=== PATIENT | female | born 1940 | race Caucasian/White ===

== ENCOUNTER 2018-12-02 16:23 | Inpatient (IN) | payer MEDICARE, OTHER ==
[2018-12-02] MEDS ORDERED: IPRATROPIUM-ALBUTEROL 3 ML NEB INHALATION STA (16:30)
--- NOTE | 2018-12-02 17:09 | ED ---
General Adult HPI - General Chief complaint: Weakness Stated complaint: poss STEMI Source: patient, EMS Mode of arrival: EMS Limitations: no limitations - History of Present Illness Initial comments: Patient presents to the ED by ambulance for evaluation. Patient states that she was recently discharged from an outside hospital after being admitted for pneumonia. Patient states that she has had diarrhea for the past 3 days, and she states that she has felt generally weak. Patient states that she lives alone. Patient states that her granddaughter called for an ambulance for her today. Patient admits that her diarrhea has been dark in color, but she states that she takes iron pills daily. She also admits to having a continued cough and mild dyspnea. Patient denies having any pain, trauma or injury, fever or chills, headache, focal neuro deficit, chest pain, neck/arm/jaw pain, hemoptysis, palpitations, dizziness, syncope, abdominal pain, nausea or vomiting, red-colored stool, dysuria, hematuria, urinary symptoms, or any other symptoms or complaints. - Related Data Home Medications Medication Instructions Recorded Confirmed ALPRAZolam [Xanax] 0.5 mg PO BID PRN 12/02/18 12/02/18 Albuterol Nebulized [Ventolin 2.5 mg INHALATION RT-Q8H 12/02/18 12/02/18 Nebulized] Aspirin EC [Ecotrin Low Dose] 81 mg PO DAILY 12/02/18 12/02/18 Atorvastatin [Lipitor] 40 mg PO DAILY 12/02/18 12/02/18 Clopidogrel Bisulfate [Plavix] 75 mg PO DAILY 12/02/18 12/02/18 Escitalopram Oxalate [Lexapro] 10 mg PO DAILY 12/02/18 12/02/18 Ferrous Sulfate [Feosol] 325 mg PO DAILY 12/02/18 12/02/18 Fluticasone/Salmeterol [Advair 1 puff INHALATION RT-BID 12/02/18 12/02/18 250-50 Diskus] Furosemide [Lasix] 40 mg PO BID 12/02/18 12/02/18 Gabapentin 600 mg PO TID 12/02/18 12/02/18 Ipratropium-Albuterol Nebulize 3 ml INHALATION RT-QID 12/02/18 12/02/18 [Duoneb 0.5 mg-3 mg/3 ml Soln] Lisinopril [Zestril] 2.5 mg PO DAILY 12/02/18 12/02/18 Metoprolol Tartrate [Lopressor] 12.5 mg PO BID 12/02/18 12/02/18 Nitroglycerin Sl Tabs [Nitrostat] 0.4 mg PO Q5M PRN 12/02/18 12/02/18 Omeprazole [PriLOSEC] 20 mg PO DAILY 12/02/18 12/02/18 Potassium Chloride ER [K-Dur 20] 20 meq PO DAILY 12/02/18 12/02/18 predniSONE 40 mg PO DAILY 12/02/18 12/02/18 Allergies Allergy/AdvReac Type Severity Reaction Status Date / Time bacitracin Allergy Rash/Hives Verified 12/02/18 18:46 [From Neosporin ([id number])] diphenhydramine Allergy Swelling Verified 12/02/18 18:46 [From Benadryl] iodine Allergy Swelling Verified 12/02/18 18:46 moxifloxacin [From Avelox] Allergy Anaphylaxis Verified 12/02/18 18:46 neomycin Allergy Rash/Hives Verified 12/02/18 18:46 [From Neosporin ([id number])] polymyxin B Allergy Rash/Hives Verified 12/02/18 18:46 [From Neosporin ([id number])] morphine AdvReac Hallucinati Verified 12/02/18 18:46 ons Pbdgdvr-Tpb-Qxu Reductase AdvReac NOT SURE, Verified 12/02/18 18:46 Inhibitor STILL TAKES LIPITOR Review of Systems ROS Statement: Those systems with pertinent positive or pertinent negative responses have been documented in the HPI. ROS Other: All systems not noted in ROS Statement are negative. Past Medical History Past Medical History: COPD Additional Past Medical History / Comment(s): pvd History of Any Multi-Drug Resistant Organisms: None Reported Past Surgical History: Breast Surgery, Hysterectomy Additional Past Surgical History / Comment(s): double amputation Past Psychological History: Anxiety Smoking Status: Current every day smoker Past Alcohol Use History: None Reported Past Drug Use History: None Reported General Exam Limitations: no limitations General appearance: alert, in no apparent distress Head exam: Present: atraumatic, normocephalic Eye exam: Present: normal appearance, EOMI ENT exam: Present: mucous membranes moist Neck exam: Absent: tenderness, meningismus Respiratory exam: Present: wheezes. Absent: respiratory distress, rales, rhon chi, stridor Cardiovascular Exam: Present: regular rate, normal rhythm, normal heart sounds, other (Normal radial pulses bilaterally) GI/Abdominal exam: Present: soft, other (Large ventral hernia is present). Absent: distended, tenderness, guarding Rectal exam: Present: normal rectal tone, other (Dark-colored stool; ED RN was present during rectal examination). Absent: tenderness Extremities exam: Present: other (Patient is status post bilateral AKA's). Absent: tenderness Neurological exam: Present: alert, oriented X3. Absent: motor sensory deficit Psychiatric exam: Present: normal affect, normal mood Skin exam: Present: warm, dry, intact, normal color Course Vital Signs 12/02/18 12/02/18 12/02/18 16:46 17:03 17:10 Temperature 98 F Pulse Rate 99 111 H 109 H Respiratory 18 18 Rate Blood Pressure 90/67 102/82 O2 Sat by Pulse 91 L 93 L Oximetry 12/02/18 12/02/18 12/02/18 17:17 18:22 19:00 Temperature Pulse Rate 106 H 103 H 99 Respiratory 18 18 Rate Blood Pressure 80/58 102/82 O2 Sat by Pulse 94 L 94 L Oximetry - Reevaluation(s) Reevaluation #1: 12/02/18 18:44 Case, H&P, test results and ED management thus far were discussed with Dr. Day who accepts hospital floor admission. He recommends placing orders for cardiology and pulmonology consultations. He has no further recommendations at this time. 12/02/18 19:18 Patient denies development of any new symptoms while in the ED. Patient had a transient low blood pressure reading while in the ED, but her blood pressure has now improved. Patient is aware of her test results, and she agrees with [facility] admission at this time. EKG Findings - EKG Comments: EKG Findings:: Sinus tachycardia, ventricular rate of 115 bpm, normal MD inte rval, left bundle branch block, leftward axis, normal QT interval, no old EKG is available for comparison Medical Decision Making - Medical Decision Making Given the patient's reported cough/dyspnea, leukocytosis and chest x-ray findings, I suspect that the patient likely has pneumonia. Will treat the patient for hospital-acquired pneumonia given her recent hospitalization. Patient was given IV cefepime, IV azithromycin and IV vancomycin in the ED. I also suspect CHF given the patient's elevated BNP level. No diuretic was given secondary to the pt's boderline low blood pressure. Patient's troponin is slightly elevated, but she denies having any chest pain. Patient's EKG shows a left bundle branch block, and there is no EKG available for comparison at this time. Patient was given aspirin in the ED. Dr. Day has accepted hospital admission. Cardiology and pulmonology consultations have been ordered. - Lab Data Result diagrams: 12/02/18 17:00 12/02/18 17:00 Lab Results 12/02/18 12/02/18 12/02/18 Range/Units 17:00 17:00 17:00 WBC 15.7 H (3.8-10.6) k/uL RBC 4.26 (3.80-5.40) m/uL Hgb 12.6 (11.4-16.0) gm/dL Hct 42.0 (34.0-46.0) % MCV 98.5 (80.0-100.0) fL MCH 29.6 (25.0-35.0) pg MCHC 30.1 L (31.0-37.0) g/dL RDW 14.3 (11.5-15.5) % Plt Count 207 (150-450) k/uL Neutrophils % 94 % Lymphocytes % 2 % Monocytes % 2 % Eosinophils % 1 % Basophils % 0 % Neutrophils # 14.8 H (1.3-7.7) k/uL Lymphocytes # 0.3 L (1.0-4.8) k/uL Monocytes # 0.4 (0-1.0) k/uL Eosinophils # 0.1 (0-0.7) k/uL Basophils # 0.1 (0-0.2) k/uL PT (9.0-12.0) sec INR (<1.2) APTT (22.0-30.0) sec Sodium 138 (137-145) mmol/L Potassium 4.1 (3.5-5.1) mmol/L Chloride 99 (98-107) mmol/L Carbon Dioxide 27 (22-30) mmol/L Anion Gap 12 mmol/L BUN 28 H (7-17) mg/dL Creatinine 0.57 (0.52-1.04) mg/dL Est GFR (CKD-EPI)AfAm >90 (>60 ml/min/1.73 sqM) Est GFR (CKD-EPI)NonAf 89 (>60 ml/min/1.73 sqM) Glucose 110 H (74-99) mg/dL Plasma Lactic Acid Fermin (0.7-2.0) mmol/L Calcium 9.0 (8.4-10.2) mg/dL Magnesium 2.0 (1.6-2.3) mg/dL Total Bilirubin 0.8 (0.2-1.3) mg/dL AST 62 H (14-36) U/L ALT 112 H (9-52) U/L Alkaline Phosphatase 155 H (38-126) U/L Troponin I (0.000-0.034) ng/mL NT-Pro-B Natriuret Pep pg/mL Total Protein 6.2 L (6.3-8.2) g/dL Albumin 3.4 L (3.5-5.0) g/dL Lipase 25 (23-300) U/L Stool Occult Blood (Negative) Blood Type B Positive Blood Type Recheck B Pos Bld Type Recheck Status No Antibody Screen NEGATIVE Spec Expiration Date 12/05/2018229912/02/18 12/02/18 12/02/18 Range/Units 17:00 17:00 17:00 WBC (3.8-10.6) k/uL RBC (3.80-5.40) m/uL Hgb (11.4-16.0) gm/dL Hct (34.0-46.0) % MCV (80.0-100.0) fL MCH (25.0-35.0) pg MCHC (31.0-37.0) g/dL RDW (11.5-15.5) % Plt Count (150-450) k/uL Neutrophils % % Lymphocytes % % Monocytes % % Eosinophils % % Basophils % % Neutrophils # (1.3-7.7) k/uL Lymphocytes # (1.0-4.8) k/uL Monocytes # (0-1.0) k/uL Eosinophils # (0-0.7) k/uL Basophils # (0-0.2) k/uL PT 10.3 (9.0-12.0) sec INR 1.0 (<1.2) APTT 26.8 (22.0-30.0) sec Sodium (137-145) mmol/L Potassium (3.5-5.1) mmol/L Chloride (98-107) mmol/L Carbon Dioxide (22-30) mmol/L Anion Gap mmol/L BUN (7-17) mg/dL Creatinine (0.52-1.04) mg/dL Est GFR (CKD-EPI)AfAm (>60 ml/min/1.73 sqM) Est GFR (CKD-EPI)NonAf (>60 ml/min/1.73 sqM) Glucose (74-99) mg/dL Plasma Lactic Acid Fermin (0.7-2.0) mmol/L Calcium (8.4-10.2) mg/dL Magnesium (1.6-2.3) mg/dL Total Bilirubin (0.2-1.3) mg/dL AST (14-36) U/L ALT (9-52) U/L Alkaline Phosphatase (38-126) U/L Troponin I 0.329 H* (0.000-0.034) ng/mL NT-Pro-B Natriuret Pep 28170 pg/mL Total Protein (6.3-8.2) g/dL Albumin (3.5-5.0) g/dL Lipase (23-300) U/L Stool Occult Blood (Negative) Blood Type Blood Type Recheck Bld Type Recheck Status Antibody Screen Spec Expiration Date 12/02/18 12/02/18 Range/Units 17:00 17:00 WBC (3.8-10.6) k/uL RBC (3.80-5.40) m/uL Hgb (11.4-16.0) gm/dL Hct (34.0-46.0) % MCV (80.0-100.0) fL MCH (25.0-35.0) pg MCHC (31.0-37.0) g/dL RDW (11.5-15.5) % Plt Count (150-450) k/uL Neutrophils % % Lymphocytes % % Monocytes % % Eosinophils % % Basophils % % Neutrophils # (1.3-7.7) k/uL Lymphocytes # (1.0-4.8) k/uL Monocytes # (0-1.0) k/uL Eosinophils # (0-0.7) k/uL Basophils # (0-0.2) k/uL PT (9.0-12.0) sec INR (<1.2) APTT (22.0-30.0) sec Sodium (137-145) mmol/L Potassium (3.5-5.1) mmol/L Chloride (98-107) mmol/L Carbon Dioxide (22-30) mmol/L Anion Gap mmol/L BUN (7-17) mg/dL Creatinine (0.52-1.04) mg/dL Est GFR (CKD-EPI)AfAm (>60 ml/min/1.73 sqM) Est GFR (CKD-EPI)NonAf (>60 ml/min/1.73 sqM) Glucose (74-99) mg/dL Plasma Lactic Acid Fermin 1.8 (0.7-2.0) mmol/L Calcium (8.4-10.2) mg/dL Magnesium (1.6-2.3) mg/dL Total Bilirubin (0.2-1.3) mg/dL AST (14-36) U/L ALT (9-52) U/L Alkaline Phosphatase (38-126) U/L Troponin I (0.000-0.034) ng/mL NT-Pro-B Natriuret Pep pg/mL Total Protein (6.3-8.2) g/dL Albumin (3.5-5.0) g/dL Lipase (23-300) U/L Stool Occult Blood Negative (Negative) Blood Type Blood Type Recheck Bld Type Recheck Status Antibody Screen Spec Expiration Date - Radiology Data Radiology results: image reviewed (Chest x-ray shows bilateral interstitial (right greater than left) pulmonary infiltrates) Disposition Clinical Impression: Generalized weakness, Diarrhea, COPD (chronic obstructive pulmonary disease), Elevated troponin, CHF (congestive heart failure) Narrative: Suspected hospital-acquired pneumonia Disposition: ADMITTED IP TO THIS HOSP Condition: Stable Is patient prescribed a controlled substance at d/c from ED?: No Time of Disposition: 18:44 Decision Date: 12/02/18 Decision Time: 18:19
[2018-12-02 17:22] LABS: Basophils # (A) 0.1 k/uL (0-0.2); Basophils % (A) 0 %; Eosinophils # (A) 0.1 k/uL (0-0.7); Eosinophils % (A) 1 %; HGB 12.6 gm/dL (11.4-16.0); Lymphocytes # (A) 0.3 k/uL (1.0-4.8); Lymphocytes % (A) 2 %; MCH 29.6 pg (25.0-35.0); MCHC 30.1 g/dL (31.0-37.0); MCV 98.5 fL (80.0-100.0); Mean Platelet Volume 6.7; Monocytes # (A) 0.4 k/uL (0-1.0); Monocytes % (A) 2 %; Neutrophils # (A) 14.8 k/uL (1.3-7.7); Neutrophils % (A) 94 %; Platelet Count 207 k/uL (150-450); RBC 4.26 m/uL (3.80-5.40); RDW 14.3 % (11.5-15.5); WBC 15.7 k/uL (3.8-10.6)
[2018-12-02 17:28] LABS: Partial Thromboplastin Time 26.8 sec (22.0-30.0); Prothrombin Time 10.3 sec (9.0-12.0)
[2018-12-02 17:45] LABS: ALT 112 U/L (9-52); AST 62 U/L (14-36); African American GFR (CKD) >90 (>60 ml/min/1.73 sqM); Albumin 3.4 g/dL (3.5-5.0); Alkaline Phosphatase 155 U/L (38-126); Anion Gap 12 mmol/L; Blood Urea Nitrogen 28 mg/dL (7-17); Carbon Dioxide 27 mmol/L (22-30); Chloride 99 mmol/L (98-107); Glucose 110 mg/dL (74-99); Potassium 4.1 mmol/L (3.5-5.1); Sodium 138 mmol/L (137-145); Total Bilirubin 0.8 mg/dL (0.2-1.3); Total Protein 6.2 g/dL (6.3-8.2)
--- NOTE | 2018-12-02 18:03 | XR ---
EXAMINATION TYPE: XR chest 2V DATE OF EXAM: 12/02/2018 COMPARISON: NONE HISTORY: Chest pain TECHNIQUE: Frontal and lateral views of the chest are obtained. FINDINGS: There is coarsening of the lung markings. There is slight blunting of the costophrenic ang les. There are no hilar masses. Thoracic aorta is atheromatous. IMPRESSION: Interstitial pulmonary fibrotic changes. Pulmonary interstitial edema slightly worse on the right side. Mild congestive heart failure is possible.
[2018-12-02] MEDS ORDERED: CEFEPIME 2 GM in SODIUM CHLORIDE 0.9% 100 ML IVPB STA (18:10)
[2018-12-02] MEDS ORDERED: AZITHROMYCIN 500 MG in SODIUM CHLORIDE 0.9% 250 ML IVPB STA (18:10)
[2018-12-02] MEDS ORDERED: VANCOMYCIN IV PER PHARMACY 1 EACH MISC MISCELLANE PRN (18:11)
[2018-12-02] MEDS ORDERED: ASPIRIN 325 MG TAB PO STA (18:12)
[2018-12-02] MEDS ORDERED: methylPREDNISolone SOD SUCCI 125 MG/2 ML VIAL IV STA (18:14)
[2018-12-02] MEDS ORDERED: VANCOMYCIN 1,000 MG in SODIUM CHLORIDE 0.9% 250 ML IVPB STA (18:21)
[2018-12-02] MEDS ORDERED: SODIUM CHLORIDE 0.9% 1,000 ML IV ONE (18:26)
[2018-12-02] MEDS ORDERED: ONDANSETRON ODT 4 MG TAB PO STA (18:55)
[2018-12-02] MEDS ORDERED: FUROSEMIDE 10 MG/ML 4 ML VIAL IV STA (19:24)
[2018-12-02 20:16] LABS: Appearance,Urine Cloudy (Clear); Bilirubin,Urine Negative (Negative); Blood,Urine Moderate (Negative); Color,Urine Yellow; Glucose,Urine (UA) Negative (Negative); Hyaline Casts,Urine 5 /lpf (0-2); Ketones,Urine Negative (Negative); Leukocyte Esterase,Urine Large (Negative); Mucus,Urine Rare /hpf; Nitrite,Urine Negative (Negative); PH, Urine 5.5 (5.0-8.0); Protein,Urine 1+ (Negative); RBC,Urine 14 /hpf (0-5); Specific Gravity,Urine 1.017 (1.001-1.035); Squamous Epithelial Cell,Urine 3 /hpf (0-4); Urobilinogen,Urine <2.0 mg/dL (<2.0)
[2018-12-02] MEDS: FUROSEMIDE 10 MG/ML 2 ML VIAL IV SCH (21:07)
[2018-12-03] MEDS ORDERED: FUROSEMIDE 10 MG/ML 2 ML VIAL IV STA (01:21)
[2018-12-03] MEDS ORDERED: ALBUTEROL NEBULIZED 2.5 MG/3 ML INHALATION PRN (01:21)
[2018-12-03 06:07] LABS: Basophils % (A) 0 %; Eosinophils % (A) 0 %; HCT 39.5 % (34.0-46.0); HGB 12.5 gm/dL (11.4-16.0); Hypochromasia Slight; Lymphocytes # (A) 0.3 k/uL (1.0-4.8); Lymphocytes % (A) 3 %; MCH 31.5 pg (25.0-35.0); MCHC 31.7 g/dL (31.0-37.0); MCV 99.2 fL (80.0-100.0); Monocytes # (A) 0.1 k/uL (0-1.0); Monocytes % (A) 1 %; Neutrophils # (A) 8.5 k/uL (1.3-7.7); Neutrophils % (A) 95 %; Platelet Count 185 k/uL (150-450); RBC 3.98 m/uL (3.80-5.40); RDW 13.9 % (11.5-15.5); WBC 8.9 k/uL (3.8-10.6)
[2018-12-03 06:29] LABS: ALT 187 U/L (9-52); AST 132 U/L (14-36); African American GFR (CKD) >90 (>60 ml/min/1.73 sqM); Albumin 3.1 g/dL (3.5-5.0); Alkaline Phosphatase 344 U/L (38-126); Anion Gap 11 mmol/L; Blood Urea Nitrogen 32 mg/dL (7-17); Calcium 8.6 mg/dL (8.4-10.2); Carbon Dioxide 28 mmol/L (22-30); Chloride 102 mmol/L (98-107); Glucose 162 mg/dL (74-99); Potassium 3.8 mmol/L (3.5-5.1); Sodium 141 mmol/L (137-145); Total Bilirubin 0.5 mg/dL (0.2-1.3); Total Protein 5.7 g/dL (6.3-8.2)
[2018-12-03] MEDS ORDERED: VANCOMYCIN 750 MG in SODIUM CHLORIDE 0.9% 250 ML IVPB SCH ×4 (07:00)
[2018-12-03] MEDS: ALBUTEROL NEBULIZED 2.5 MG/3 ML INHALATION SCH ×2 (07:51→11:05)
[2018-12-03] MEDS: FUROSEMIDE 10 MG/ML 2 ML VIAL IV SCH (09:07)
[2018-12-03] MEDS: ASPIRIN 81 MG PO SCH (09:48)
[2018-12-03] MEDS: POTASSIUM CHLORIDE ER 20 MEQ TAB.ER PO SCH (09:48)
[2018-12-03] MEDS: ESCITALOPRAM 10 MG TAB PO SCH (09:48)
[2018-12-03] MEDS: METOPROLOL TARTRATE 25 MG TAB PO SCH ×2 (09:48→20:28)
[2018-12-03] MEDS: ATORVASTATIN 40 MG TAB PO SCH (09:48)
[2018-12-03] MEDS: CLOPIDOGREL 75 MG TAB PO SCH (09:48)
[2018-12-03] MEDS ORDERED: FUROSEMIDE 10 MG/ML 2 ML VIAL IV ONE (12:15)
--- NOTE | 2018-12-03 13:09 | P.CNPUL ---
History of Present Illness Consult date: 12/03/18 Requesting physician: Greg Day Reason for consult: dyspnea Chief complaint: Shortness of breath, cough, congestion History of present illness: This is a very pleasant 78-year-old female patient who follows with Dr. De León as her primary care physician. She has a history of bilateral uvmbo-rwx-kqsm amputation with history of chronic ulcers of the stump as well as ulcers of the back, hypertension, peripheral vascular disease, polyneuropathy, chronic and ongoing tobacco dependence with suspected chronic obstructive pulmonary disease. She was recently admitted to 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 She lives alone. She transfers from bed to wheelchair and a transfer board. She is brought here to the emergency room yesterday with increasing shortness of breath cough and congestion. Chest x-ray revealed some interstitial edema right greater than left with some interstitial fibrotic changes. She is seen today in consultation on the selective care unit. She is currently resting in bed. Awake and alert in no acute distress. She is breathing a bit easier today as compared to yesterday. Maintaining O2 saturations in the upper 90s on 2 L/m per nasal cannula. She's afebrile. Stool and urine cultures are pending. White count 8.9. Hemoglobin 12.5. Creatinine 0.64. Troponin 0.329, 0.815, 0.572. ProBNP 36,200. Pro-Calcitonin 0.90. She's been initiated on albuterol updraft treatments, IV diuretics, vancomycin. Cefepime and azithromycin discontinued. Review of Systems REVIEW OF SYSTEMS: CONSTITUTIONAL: Denies any recent significant weight loss or weight gain. EYES: Denies change in vision. EARS, NOSE, MOUTH, THROAT: Denies headaches, denies sore throat. CARDIOVASCULAR: Denies chest pain, palpitations or syncopal episodes. RESPIRATORY: Positive for shortness of breath, cough, congestion or hemoptysis. GASTROINTESTINAL: Denies change in appetite, denies abdominal pain GENITOURINARY: Denies hematuria, denies infections. MUSKULOSKELETAL: Denies pain, denies swelling. INTEGUMENTARY: Tiny opening on the right stump. NEUROLOGICAL: Denies recent memory loss, no recent seizure activity. PSYCHIATRIC: Denies anxiety, denies depression. HEMATOLOGIC/LYMPHATIC: Denies anemia, denies enlarged lymph nodes. Past Medical History Past Medical History: Blood Disorder, Chest Pain / Angina, COPD, GERD/Reflux, Hyperlipidemia, Hypertension, Pneumonia, Vascular Disorder Additional Past Medical History / Comment(s): pvd, anemia, neuropathy History of Any Multi-Drug Resistant Organisms: None Reported Past Surgical History: Breast Surgery, Hysterectomy Additional Past Surgical History / Comment(s): double amputation Past Anesthesia/Blood Transfusion Reactions: No Reported Reaction Past Psychological History: Anxiety Smoking Status: Current some day smoker Past Alcohol Use History: None Reported Past Drug Use History: None Reported - Past Family History Mother History Unknown: Yes Father History Unknown: Yes Medications and Allergies Home Medications Medication Instructions Recorded Confirmed Type ALPRAZolam [Xanax] 0.5 mg PO BID PRN 12/02/18 12/02/18 History Albuterol Nebulized [Ventolin 2.5 mg INHALATION RT-Q8H 12/02/18 12/02/18 History Nebulized] Aspirin EC [Ecotrin Low Dose] 81 mg PO DAILY 12/02/18 12/02/18 History Atorvastatin [Lipitor] 40 mg PO DAILY 12/02/18 12/02/18 History Clopidogrel Bisulfate [Plavix] 75 mg PO DAILY 12/02/18 12/02/18 History Escitalopram Oxalate [Lexapro] 10 mg PO DAILY 12/02/18 12/02/18 History Ferrous Sulfate [Feosol] 325 mg PO DAILY 12/02/18 12/02/18 History Fluticasone/Salmeterol [Advair 1 puff INHALATION RT-BID 12/02/18 12/02/18 History 250-50 Diskus] Furosemide [Lasix] 40 mg PO BID 12/02/18 12/02/18 History Gabapentin 600 mg PO TID 12/02/18 12/02/18 History Ipratropium-Albuterol Nebulize 3 ml INHALATION RT-QID 12/02/18 12/02/18 History [Duoneb 0.5 mg-3 mg/3 ml Soln] Lisinopril [Zestril] 2.5 mg PO DAILY 12/02/18 12/02/18 History Metoprolol Tartrate [Lopressor] 12.5 mg PO BID 12/02/18 12/02/18 History Nitroglycerin Sl Tabs [Nitrostat] 0.4 mg PO Q5M PRN 12/02/18 12/02/18 History Omeprazole [PriLOSEC] 20 mg PO DAILY 12/02/18 12/02/18 History Potassium Chloride ER [K-Dur 20] 20 meq PO DAILY 12/02/18 12/02/18 History predniSONE 40 mg PO DAILY 12/02/18 12/02/18 History Allergies Allergy/AdvReac Type Severity Reaction Status Date / Time bacitracin Allergy Rash/Hives Verified 12/02/18 18:46 [From Neosporin ([id number])] diphenhydramine Allergy Swelling Verified 12/02/18 18:46 [From Benadryl] iodine Allergy Swelling Verified 12/02/18 18:46 moxifloxacin [From Avelox] Allergy Anaphylaxis Verified 12/02/18 18:46 neomycin Allergy Rash/Hives Verified 12/02/18 18:46 [From Neosporin ([id number])] polymyxin B Allergy Rash/Hives Verified 12/02/18 18:46 [From Neosporin ([id number])] morphine AdvReac Hallucinati Verified 12/02/18 18:46 ons Koxxpzk-Ghz-Gkv Reductase AdvReac NOT SURE, Verified 12/02/18 18:46 Inhibitor STILL TAKES LIPITOR Physical Exam Vitals: Vital Signs Temp Pulse Pulse Resp BP BP Pulse Ox 12/03/18 11:20 100 12/03/18 11:05 96 12/03/18 09:52 100 153/71 12/03/18 08:03 92 12/03/18 08:00 98.4 F 105 H 20 108/75 98 12/03/18 07:51 88 12/03/18 03:23 98.1 F 82 22 142/84 97 12/02/18 23:10 98.2 F 94 22 92/67 97 12/02/18 21:34 22 12/02/18 20:55 126/55 12/02/18 20:31 98.1 F 92 22 86/65 96 12/02/18 20:13 98 F 99 18 102/82 94 L 12/02/18 19:00 99 18 102/82 94 L 12/02/18 18:22 103 H 18 80/58 94 L 12/02/18 17:17 106 H 12/02/18 17:10 109 H 12/02/18 17:03 111 H 18 102/82 93 L 12/02/18 16:46 98 F 99 18 90/67 91 L Intake and Output 12/02/18 12/03/18 12/03/18 22:59 06:59 14:59 Intake Total 430 Output Total 200 Balance 230 Intake: Intake, IV Titration 250 Amount Vancomycin 750 mg In 250 Sodium Chloride 0.9% 250 ml @ 125 mls/hr IVPB Q12H [facility] Rx#:[id number] Oral 180 Output: Urine 200 Other: Voiding Method Diaper Diaper Diaper # Voids 2 # Bowel Movements 1 Weight 41.73 kg 42 kg GENERAL EXAM: Alert, comfortable in no apparent distress. On 2 L nasal cannula. O2 saturation 98%. HEAD: Normocephalic. EYES: Normal reaction of pupils, equal size. NOSE: Clear with pink turbinates. THROAT: No erythema or exudates. NECK: No masses, no JVD. CHEST: No chest wall deformity. LUNGS: Equal air entry with faint crackles in the posterior bases. CVS: S1 and S2 normal with no audible murmur, regular rhythm. ABDOMEN: No hepatosplenomegaly, normal bowel sounds, no guarding or rigidity. SPINE: No scoliosis or deformity SKIN: Small opening on the right stump. CENTRAL NERVOUS SYSTEM: No focal deficits, tone is normal in all 4 extremities. EXTREMITIES: Bilateral cqedp-kol-kido amputee. No clubbing, no cyanosis. Peripheral pulses are intact. Results - Laboratory Findings CBC and BMP: 12/03/18 05:18 12/03/18 05:18 PT/INR, D-dimer PT 10.3 sec (9.0-12.0) 12/02/18 17:00 INR 1.0 (<1.2) 12/02/18 17:00 Abnormal lab findings: Abnormal Labs 12/02/18 12/02/18 12/02/18 17:00 17:00 17:00 WBC 15.7 H MCHC 30.1 L Neutrophils # 14.8 H Lymphocytes # 0.3 L BUN 28 H Glucose 110 H AST 62 H ALT 112 H Alkaline Phosphatase 155 H Troponin I 0.329 H* Total Protein 6.2 L Albumin 3.4 L Procalcitonin Urine Appearance Urine Protein Urine Blood Ur Leukocyte Esterase Urine RBC Urine WBC Hyaline Casts Urine Mucus 12/02/18 12/02/18 12/02/18 17:00 20:06 22:18 WBC MCHC Neutrophils # Lymphocytes # BUN Glucose AST ALT Alkaline Phosphatase Troponin I 0.815 H* Total Protein Albumin Procalcitonin 0.90 H Urine Appearance Cloudy H Urine Protein 1+ H Urine Blood Moderate H Ur Leukocyte Esterase Large H Urine RBC 14 H Urine WBC 32 H Hyaline Casts 5 H Urine Mucus Rare H 12/03/18 12/03/18 12/03/18 05:18 05:18 05:18 WBC MCHC Neutrophils # 8.5 H Lymphocytes # 0.3 L BUN 32 H Glucose 162 H AST 132 H ALT 187 H Alkaline Phosphatase 344 H Troponin I 0.572 H* Total Protein 5.7 L Albumin 3.1 L Procalcitonin Urine Appearance Urine Protein Urine Blood Ur Leukocyte Esterase Urine RBC Urine WBC Hyaline Casts Urine Mucus - Diagnostic Findings Chest x-ray: image reviewed Assessment and Plan Assessment: Impression: #1 Acute exacerbation of combined systolic and diastolic congestive heart failure with recent admission for the same at an outside facility. #2 Acute exacerbation of suspected chronic obstructive pulmonary disease, complicated by acute tracheobronchitis. #3 Chronic and ongoing tobacco dependence. #4 Bilateral wedxc-euw-fqcb amputee with small ulcerations being followed by infectious disease. #5 History of essential hypertension. #6 Peripheral vascular disease. #7 Poor overall functional performance based on the above-mentioned multiple comorbidities. Plan: The patient was seen and evaluated by Dr. Kearns. Chest x-ray and labs reviewed. Add additional diuretics. Continue bronchodilators. Echocardiogram pending. She is educated regarding the importance of complete smoking cessation. NicoDerm patch will be offered. Suspect some underlying COPD. Continue bronchodilators. We'll continue to follow make further recommendations based on her clinical status. I, the cosigning physician, performed a history & physical examination of the patient. Lungs sounds with crackles in the bilateral posterior bases. Maintaining good O2 saturations in the 90s on 2 L/m per nasal cannula. I discussed the assessment and plan of care with my nurse practitioner, Natividad Kruse. I attest to the above note as dictated by her. Time with Patient: Greater than 30
[2018-12-03] MEDS: FERROUS SULFATE 325 MG TAB PO SCH (13:22)
[2018-12-03] MEDS ORDERED: SODIUM CHLORIDE 0.9% 1,000 ML IV SCH (13:30)
--- NOTE | 2018-12-03 13:57 | P.HPIM ---
History of Present Illness H&P Date: 12/03/18 Chief Complaint: Cough History of presenting complaint: This is a pleasant 78-year-old patient who follows with Dr. Allen. Also follows with business services coordinator Dr. Hawkins. Chronic stable medical conditions include hypertension, hyperlipidemia, GERD, peripheral artery disease, peripheral neuropathy, bilateral above-knee amputation. Patient was recently in the hospital patient does not remember which subsequent to that she had gone in for rehab to [facility] off [address].. Subsequent to that she's been home for 4 days. Patient now presents with cough which is rather congested. Not able to expectorate. Denies any FEVER and chills. Appetite has been lousy. Patient been having 3-4 bowel movements a day. Mushy. No abdominal pain. No fever no chills. Normally uses a wheelchair to get about. No blood in the stool. Patient has continued to smoke. Short of breath and wheezing. Review of systems: GEN.: Tired decreased appetite EYES: None HEENT: None NECK: None RESPIRATORY: As above CARDIOVASCULAR: None GASTROINTESTINAL: As above GENITOURINARY: None MUSCULOSKELETAL: None LYMPHATICS: None HEMATOLOGICAL: None PSYCHIATRY: None NEUROLOGICAL: None Dermatological: Wound on the right stump for a few weeks Past medical history to include: COPD, GERD, hyperlipidemia, hypertension, peripheral arterial disease, anemia, neuropathy Social history: Lives by herself. Smokes a day for many years. No alcohol. Does use a wheelchair. Has been home for 4 days from [facility] off [address]. Prior to that was hospitalized. Family history: Reviewed, noncontributory to presentation Physical examination: VITAL SIGNS: 98, 99, 18, 90/67, 91% on 2 L GENERAL: BMI 20, sitting up in the bed, short of breath at rest. EYES: Pupils equal. Conjunctiva palel. HEENT: External appearance of nose and ears normal, oral cavity grossly normal. NECK: JVD not raised; masses not palpable. HEART: First and second heart sounds are normal; no edema. LUNGS: Respiratory rate normal; clear to auscultation. ABDOMEN: Soft, nontender, liver spleen not palpable, no masses palpable. PSYCH: Alert and oriented x3; mood and affect normal. NEUROLOGICAL: Cranial nerves grossly intact; no facial asymmetry, power and sensation grossly intact. LYMPHATICS: No lymph nodes palpable in the axilla and neck Extremities: Bilateral above-knee amputation, wound on the right stump covered INVESTIGATIONS, reviewed in the clinical context: White count 15.7 hemoglobin 12.6 platelets 207 potassium 4.1 bun 28 creatinine 0.57 AST 62 ALT 11 2 repeat 132 and 187 Troponin I 0.032, 0.81, 0.57 Albumin 3.1 proBNP [id number] Procan calcitonin 0.9 UA positive for leukoesterase WBC EKG tracing personally reviewed by me shows-sinus rhythm left bundle branch block -Chest x-ray film personally reviewed by me-shows some cardiomegaly and diffuse infiltrate with possible chronic changes, the lateral film shows fluid in the oblique fissure Assessment: -Acute on chronic congestive heart failure exacerbation, EF not known -Possible pneumonia, suspect gram-negative organism -Acute COPD exacerbation in a current smoker -Chronic nicotine dependence patient cigarette smoker -Possible acute UTI from cystitis -Chronic bilateral above-knee amputation -Chronic right lower extremity stump wound -Hddi-is-dctzllnt protein calorie malnutrition-as evidenced by low albumin, decreased muscle mass, loss of body fat, prominent bony eminence -Hepatitis possibly drug-induced. It could also be from ischemic hepatitis from recent hospitalization. Note that patient on Lipitor. -Peripheral arterial disease -GERD -Hyperlipidemia Plan: -Patient started on IV Lasix. We'll get a 2-D echocardiogram. Follow electrolytes closely. Patient is put on IV Zosyn. We'll put the patient on Mucinex. Senna sputum for Gram stain and culture. Use a mechanical soft diet. Bronchodilators every 4 hours with inhaled steroids. Also the dietitian see the patient. Add food supplement. Other home medications are renewed. Care was discussed with the patient. Questions were answered. Past Medical History Past Medical History: Blood Disorder, Chest Pain / Angina, COPD, GERD/Reflux, Hyperlipidemia, Hypertension, Pneumonia, Vascular Disorder Additional Past Medical History / Comment(s): pvd, anemia, neuropathy History of Any Multi-Drug Resistant Organisms: None Reported Past Surgical History: Breast Surgery, Hysterectomy Additional Past Surgical History / Comment(s): double amputation Past Anesthesia/Blood Transfusion Reactions: No Reported Reaction Past Psychological History: Anxiety Smoking Status: Current some day smoker Past Alcohol Use History: None Reported Past Drug Use History: None Reported - Past Family History Mother History Unknown: Yes Father History Unknown: Yes Medications and Allergies Home Medications Medication Instructions Recorded Confirmed Type ALPRAZolam [Xanax] 0.5 mg PO BID PRN 12/02/18 12/02/18 History Albuterol Nebulized [Ventolin 2.5 mg INHALATION RT-Q8H 12/02/18 12/02/18 History Nebulized] Aspirin EC [Ecotrin Low Dose] 81 mg PO DAILY 12/02/18 12/02/18 History Atorvastatin [Lipitor] 40 mg PO DAILY 12/02/18 12/02/18 History Clopidogrel Bisulfate [Plavix] 75 mg PO DAILY 12/02/18 12/02/18 History Escitalopram Oxalate [Lexapro] 10 mg PO DAILY 12/02/18 12/02/18 History Ferrous Sulfate [Feosol] 325 mg PO DAILY 12/02/18 12/02/18 History Fluticasone/Salmeterol [Advair 1 puff INHALATION RT-BID 12/02/18 12/02/18 History 250-50 Diskus] Furosemide [Lasix] 40 mg PO BID 12/02/18 12/02/18 History Gabapentin 600 mg PO TID 12/02/18 12/02/18 History Ipratropium-Albuterol Nebulize 3 ml INHALATION RT-QID 12/02/18 12/02/18 History [Duoneb 0.5 mg-3 mg/3 ml Soln] Lisinopril [Zestril] 2.5 mg PO DAILY 12/02/18 12/02/18 History Metoprolol Tartrate [Lopressor] 12.5 mg PO BID 12/02/18 12/02/18 History Nitroglycerin Sl Tabs [Nitrostat] 0.4 mg PO Q5M PRN 12/02/18 12/02/18 History Omeprazole [PriLOSEC] 20 mg PO DAILY 12/02/18 12/02/18 History Potassium Chloride ER [K-Dur 20] 20 meq PO DAILY 12/02/18 12/02/18 History predniSONE 40 mg PO DAILY 12/02/18 12/02/18 History Allergies Allergy/AdvReac Type Severity Reaction Status Date / Time bacitracin Allergy Rash/Hives Verified 12/02/18 18:46 [From Neosporin ([id number])] diphenhydramine Allergy Swelling Verified 12/02/18 18:46 [From Benadryl] iodine Allergy Swelling Verified 12/02/18 18:46 moxifloxacin [From Avelox] Allergy Anaphylaxis Verified 12/02/18 18:46 neomycin Allergy Rash/Hives Verified 12/02/18 18:46 [From Neosporin ([id number])] polymyxin B Allergy Rash/Hives Verified 12/02/18 18:46 [From Neosporin ([id number])] morphine AdvReac Hallucinati Verified 12/02/18 18:46 ons Kgravld-Jrq-Wvv Reductase AdvReac NOT SURE, Verified 12/02/18 18:46 Inhibitor STILL TAKES LIPITOR Physical Exam Vitals: Vital Signs Temp Pulse Pulse Resp BP BP Pulse Ox 12/03/18 09:52 100 153/71 12/03/18 08:03 92 12/03/18 08:00 98.4 F 105 H 20 108/75 98 12/03/18 07:51 88 12/03/18 03:23 98.1 F 82 22 142/84 97 12/02/18 23:10 98.2 F 94 22 92/67 97 12/02/18 21:34 22 12/02/18 20:55 126/55 12/02/18 20:31 98.1 F 92 22 86/65 96 12/02/18 20:13 98 F 99 18 102/82 94 L 12/02/18 19:00 99 18 102/82 94 L 12/02/18 18:22 103 H 18 80/58 94 L 12/02/18 17:17 106 H 12/02/18 17:10 109 H 12/02/18 17:03 111 H 18 102/82 93 L 12/02/18 16:46 98 F 99 18 90/67 91 L Intake and Output 12/02/18 12/03/18 12/03/18 22:59 06:59 14:59 Intake Total 430 Output Total 200 Balance 230 Intake: Intake, IV Titration 250 Amount Vancomycin 750 mg In 250 Sodium Chloride 0.9% 250 ml @ 125 mls/hr IVPB Q12H [facility] Rx#:[id number] Oral 180 Output: Urine 200 Other: Voiding Method Diaper Diaper Diaper # Voids 2 # Bowel Movements 1 Weight 41.73 kg 42 kg Results CBC & Chem 7: 12/03/18 05:18 12/03/18 05:18 Labs: Abnormal Lab Results - Last 24 Hours (Table) 12/02/18 12/02/18 12/02/18 Range/Units 17:00 17:00 17:00 WBC 15.7 H (3.8-10.6) k/uL MCHC 30.1 L (31.0-37.0) g/dL Neutrophils # 14.8 H (1.3-7.7) k/uL Lymphocytes # 0.3 L (1.0-4.8) k/uL BUN 28 H (7-17) mg/dL Glucose 110 H (74-99) mg/dL AST 62 H (14-36) U/L ALT 112 H (9-52) U/L Alkaline Phosphatase 155 H (38-126) U/L Troponin I 0.329 H* (0.000-0.034) ng/mL Total Protein 6.2 L (6.3-8.2) g/dL Albumin 3.4 L (3.5-5.0) g/dL Procalcitonin (0.02-0.09) ng/mL Urine Appearance (Clear) Urine Protein (Negative) Urine Blood (Negative) Ur Leukocyte Esterase (Negative) Urine RBC (0-5) /hpf Urine WBC (0-5) /hpf Hyaline Casts (0-2) /lpf Urine Mucus (None) /hpf 12/02/18 12/02/18 12/02/18 Range/Units 17:00 20:06 22:18 WBC (3.8-10.6) k/uL MCHC (31.0-37.0) g/dL Neutrophils # (1.3-7.7) k/uL Lymphocytes # (1.0-4.8) k/uL BUN (7-17) mg/dL Glucose (74-99) mg/dL AST (14-36) U/L ALT (9-52) U/L Alkaline Phosphatase (38-126) U/L Troponin I 0.815 H* (0.000-0.034) ng/mL Total Protein (6.3-8.2) g/dL Albumin (3.5-5.0) g/dL Procalcitonin 0.90 H (0.02-0.09) ng/mL Urine Appearance Cloudy H (Clear) Urine Protein 1+ H (Negative) Urine Blood Moderate H (Negative) Ur Leukocyte Esterase Large H (Negative) Urine RBC 14 H (0-5) /hpf Urine WBC 32 H (0-5) /hpf Hyaline Casts 5 H (0-2) /lpf Urine Mucus Rare H (None) /hpf 12/03/18 12/03/18 12/03/18 Range/Units 05:18 05:18 05:18 WBC (3.8-10.6) k/uL MCHC (31.0-37.0) g/dL Neutrophils # 8.5 H (1.3-7.7) k/uL Lymphocytes # 0.3 L (1.0-4.8) k/uL BUN 32 H (7-17) mg/dL Glucose 162 H (74-99) mg/dL AST 132 H (14-36) U/L ALT 187 H (9-52) U/L Alkaline Phosphatase 344 H (38-126) U/L Troponin I 0.572 H* (0.000-0.034) ng/mL Total Protein 5.7 L (6.3-8.2) g/dL Albumin 3.1 L (3.5-5.0) g/dL Procalcitonin (0.02-0.09) ng/mL Urine Appearance (Clear) Urine Protein (Negative) Urine Blood (Negative) Ur Leukocyte Esterase (Negative) Urine RBC (0-5) /hpf Urine WBC (0-5) /hpf Hyaline Casts (0-2) /lpf Urine Mucus (None) /hpf Microbiology - Last 24 Hours (Table) 12/02/18 00:40 Stool Culture - Preliminary Stool 12/02/18 20:06 Urine Culture - Preliminary Urine,Voided Thrombosis Risk Factor Assmnt - Choose All That Apply Any of the Below Risk Factors Present?: Yes Each Factor Represents 1 point: Abnormal pulmonary function (COPD), Medical pt on bed rest Each Risk Factor Represents 2 Points: Patient confined to bed Each Risk Factor Represents 3 Points: Age 75 years or older Other congenital or acquired thrombophilia - If yes, enter type in comment: No Thrombosis Risk Factor Assessment Total Risk Factor Score: 7 Thrombosis Risk Factor Assessment Level: High Risk
--- NOTE | 2018-12-03 14:10 | P.CRDCN ---
History of Present Illness Consult date: 12/03/18 Reason for Consult (text): elevated troponin Chief complaint: elevated troponin History of present illness: HISTORY OF PRESENT ILLNESS AND PLAN: This is a [78]-year-old [email] with history of smoking currently 1PPD ( [id number]), PAD with bilateral above the knee amputation, hysterectomy, breast surgery, GERD, COPD, CHF, anemia, hypertension and TIA. Patient presents in the emergency department with compaints of [shortness of breath, cough, weakness and diarrhea for the past 3 days. Patient is a current one pack per day smoker. Patient states she lives at home alone. Patient questionable historian. Patient states she was at [facility] for therapy, recently returned back home and started feeling ill and weak. Patient is bilateral [id number] amputee and cares for herself. Patient states she was having multiple falls at home as well. patient lying in bed, states she feels mildly improved. Patient continues with cough and mild shortness of breath. Patient has no current complaints of chest pain, chest pressure or palpitations. Patient states she does not feel well enough to eat or drink at this time. Diarrhea has resolved. Currently on 3 L of O2 NC. Currently on Lasix 20mg IV Q12H. Pt follows with Dr. Silva in office but last echo/stress test was in 2012. Pt states she did not take ordered lasix at home]. SIGNIFICANT PAST MEDICAL HISTORY: [smoking currently 1PPD ([id number]), PAD with bilateral above the knee amputation, hysterectomy, breast surgery, GERD, COPD, CHF, anemia, hypertension and TIA.] PAST SURGICAL HISTORY: See list. EKG shows [ST, left bundle branch block], heart rate [115] bpm. Troponins positive x [3]. 0.329, 0.815, 0.572 SIGNIFICANT LABORATORY VALUES: [WBC 15.7. BUN 32/CR 0.64. Glucose 162. AST 132 / ALT 187. Alk Phos 344. Protien 5.7, Albumin 3.1. Procalcitonin 0.90. POSITIVE U/A. ]. Chest x-ray [12/02/18 = Interstitial pulmonary fibrosis. Pulmonary interstitial edema worse on right. Mild congestive heart failure possible.]. Most recent echo dated = [06/03/2012] indicates [EF 50%, WNL LV size with borderline normal function. Mild concentric LVH. Mild diastolic dysfunction. Mild TR. ]. Most recent stress testing dated = [06/03/2012] indicates [EF 67%, abnormal myocardial perfusion imaging with reversible inferoapicial and inferolateral wall as well as distal anterior wall with preserved systolic function consistent with stress-induced ischemia]. REVIEW OF SYSTEMS: CONSTITUTIONAL: [Denies fever. Denies chills. Complains of Malagia] EYES: Denies blurred vision. [Denies blurred vision or vision changes. Denies eye pain.] EARS, NOSE, MOUTH & THROAT: [Denies headache. Denies sore throat. Denies ear pain Denies hemoptysis.] CARDIOVASCULAR: [Denies chest pain. Complains of shortness of breath. Complains of orthopnea. Denies palpitations.] RESPIRATORY: [Complains of cough. Complains of shortness of breath. ] GASTROINTESTINAL: [Denies abdominal pain or distention. Complains of diarrhea. Denies constipation. Denies nausea. Denies vomiting. C/o of no appetite.] MUSCULOSKELETAL: [Complains of myalgias.] INTEGUMENTARY: [Denies pruitis. Denies rash.] ENDOCRINE: [Complains of fatigue. Denies weight change. Denies polydipsia. Denies polyurina Denies heat/cold intolerance.] GENITOURINARY:[ Complains of urine urgency and incontinence. Denies hematuria with micturation.] HEMATOLOGIC: [Complains of history of anemia. Denies bleeding.] NEUROLOGIC: [Denies numbness. Denies tingling. Complains of weakness.] PSYCHIATRIC: [Denies anxiety. Denies depression.] PHYSICAL EXAM: GENERAL: Well developed, in no acute distress. HEENT: Head is atraumatic, normocephalic. Pupils are equal, round. Extra ocular movements intact. Mucous membranes moist. Neck supple. Positive JVD. No carotid bruit. No thyromegaly. LUNGS: Bilateral diminished lungs to auscultation. No wheezes, rales or rhonchi. No chest wall tenderness on palpation or with deep breathing. HEART: Regular rate and rhythm, no rubs or gallops. S1 and S2 heard. No murmur. Tachycardia noted. ABDOMEN: Abdominal exam, WNL. Bowel sounds x4 quads. Soft, tender to palpation, without masses, organomegaly, or abdominal aorta enlargement. EXTREMITIES/VASCULAR: Extremities have easily palpable radial artery. Bilateral ABOVE the knee amputation RIGHT (1999), LEFT (2005). NEUROLOGIC: Patient is awake, alert and oriented x3. No focal neurologic abnormalities. FINAL IMPRESSION: 1. [Acute on Chronic systolic heart failure.]. 2. [PAD with bilateral above the knee amputations]. 3. [Bilateral pleural effusions]. 4. [Pulmonary Fibrosis]. 5. [Troponin elevation]. 6. Smoking 1PPD PLAN: [Patient to echocardiogram. Increase Lasix to 40 mg IV every 12 hours. Start 20mg KCL dialy. Start losartan 25 mg daily. Hold Lisinopril. Repeat BMP in a.m. Increase metoprolol tartrate to 25 mg twice daily. Heart healthy/low sodium diet. Advise dietary consult. Advised social work consult. Advise smoking cessation. Will follow.] Nurse Practitioner note has been reviewed by the Physician. Signing provider agrees with the documented findings, assessment and plan of care. Past Medical History Past Medical History: Blood Disorder, Chest Pain / Angina, COPD, GERD/Reflux, Hyperlipidemia, Hypertension, Pneumonia, Vascular Disorder Additional Past Medical History / Comment(s): pvd, anemia, neuropathy History of Any Multi-Drug Resistant Organisms: None Reported Past Surgical History: Breast Surgery, Hysterectomy Additional Past Surgical History / Comment(s): double amputation Past Anesthesia/Blood Transfusion Reactions: No Reported Reaction Past Psychological History: Anxiety Smoking Status: Current some day smoker Past Alcohol Use History: None Reported Past Drug Use History: None Reported - Past Family History Mother History Unknown: Yes Father History Unknown: Yes Medications and Allergies Home Medications Medication Instructions Recorded Confirmed Type ALPRAZolam [Xanax] 0.5 mg PO BID PRN 12/02/18 12/02/18 History Albuterol Nebulized [Ventolin 2.5 mg INHALATION RT-Q8H 12/02/18 12/02/18 History Nebulized] Aspirin EC [Ecotrin Low Dose] 81 mg PO DAILY 12/02/18 12/02/18 History Atorvastatin [Lipitor] 40 mg PO DAILY 12/02/18 12/02/18 History Clopidogrel Bisulfate [Plavix] 75 mg PO DAILY 12/02/18 12/02/18 History Escitalopram Oxalate [Lexapro] 10 mg PO DAILY 12/02/18 12/02/18 History Ferrous Sulfate [Feosol] 325 mg PO DAILY 12/02/18 12/02/18 History Fluticasone/Salmeterol [Advair 1 puff INHALATION RT-BID 12/02/18 12/02/18 History 250-50 Diskus] Furosemide [Lasix] 40 mg PO BID 12/02/18 12/02/18 History Gabapentin 600 mg PO TID 12/02/18 12/02/18 History Ipratropium-Albuterol Nebulize 3 ml INHALATION RT-QID 12/02/18 12/02/18 History [Duoneb 0.5 mg-3 mg/3 ml Soln] Lisinopril [Zestril] 2.5 mg PO DAILY 12/02/18 12/02/18 History Metoprolol Tartrate [Lopressor] 12.5 mg PO BID 12/02/18 12/02/18 History Nitroglycerin Sl Tabs [Nitrostat] 0.4 mg PO Q5M PRN 12/02/18 12/02/18 History Omeprazole [PriLOSEC] 20 mg PO DAILY 12/02/18 12/02/18 History Potassium Chloride ER [K-Dur 20] 20 meq PO DAILY 12/02/18 12/02/18 History predniSONE 40 mg PO DAILY 12/02/18 12/02/18 History Allergies Allergy/AdvReac Type Severity Reaction Status Date / Time bacitracin Allergy Rash/Hives Verified 12/02/18 18:46 [From Neosporin ([id number])] diphenhydramine Allergy Swelling Verified 12/02/18 18:46 [From Benadryl] iodine Allergy Swelling Verified 12/02/18 18:46 moxifloxacin [From Avelox] Allergy Anaphylaxis Verified 12/02/18 18:46 neomycin Allergy Rash/Hives Verified 12/02/18 18:46 [From Neosporin ([id number])] polymyxin B Allergy Rash/Hives Verified 12/02/18 18:46 [From Neosporin ([id number])] morphine AdvReac Hallucinati Verified 12/02/18 18:46 ons Lynjalz-Psx-Dkq Reductase AdvReac NOT SURE, Verified 12/02/18 18:46 Inhibitor STILL TAKES LIPITOR Physical Exam Vitals: Vital Signs Temp Pulse Pulse Resp BP BP Pulse Ox 12/03/18 11:20 100 12/03/18 11:05 96 12/03/18 09:52 100 153/71 12/03/18 08:03 92 12/03/18 08:00 98.4 F 105 H 20 108/75 98 12/03/18 07:51 88 12/03/18 03:23 98.1 F 82 22 142/84 97 12/02/18 23:10 98.2 F 94 22 92/67 97 12/02/18 21:34 22 12/02/18 20:55 126/55 12/02/18 20:31 98.1 F 92 22 86/65 96 12/02/18 20:13 98 F 99 18 102/82 94 L 12/02/18 19:00 99 18 102/82 94 L 12/02/18 18:22 103 H 18 80/58 94 L 12/02/18 17:17 106 H 12/02/18 17:10 109 H 12/02/18 17:03 111 H 18 102/82 93 L 12/02/18 16:46 98 F 99 18 90/67 91 L Intake and Output 12/02/18 12/03/18 12/03/18 22:59 06:59 14:59 Intake Total 430 Output Total 200 Balance 230 Intake: Intake, IV Titration 250 Amount Vancomycin 750 mg In 250 Sodium Chloride 0.9% 250 ml @ 125 mls/hr IVPB Q12H [facility] Rx#:[id number] Oral 180 Output: Urine 200 Other: Voiding Method Diaper Diaper Diaper # Voids 2 # Bowel Movements 1 Weight 41.73 kg 42 kg Results 12/03/18 05:18 12/03/18 05:18 Cardiac Enzymes 12/02/18 12/02/18 12/02/18 Range/Units 17:00 17:00 22:18 AST 62 H (14-36) U/L Troponin I 0.329 H* 0.815 H* (0.000-0.034) ng/mL 12/03/18 12/03/18 Range/Units 05:18 05:18 AST 132 H (14-36) U/L Troponin I 0.572 H* (0.000-0.034) ng/mL Coagulation 12/02/18 Range/Units 17:00 PT 10.3 (9.0-12.0) sec APTT 26.8 (22.0-30.0) sec CBC 12/02/18 12/03/18 Range/Units 17:00 05:18 WBC 15.7 H 8.9 (3.8-10.6) k/uL RBC 4.26 3.98 (3.80-5.40) m/uL Hgb 12.6 12.5 (11.4-16.0) gm/dL Hct 42.0 39.5 (34.0-46.0) % Plt Count 207 185 (150-450) k/uL Comprehensive Metabolic Panel 12/02/18 12/03/18 Range/Units 17:00 05:18 Sodium 138 141 (137-145) mmol/L Potassium 4.1 3.8 (3.5-5.1) mmol/L Chloride 99 102 (98-107) mmol/L Carbon Dioxide 27 28 (22-30) mmol/L BUN 28 H 32 H (7-17) mg/dL Creatinine 0.57 0.64 (0.52-1.04) mg/dL Glucose 110 H 162 H (74-99) mg/dL Calcium 9.0 8.6 (8.4-10.2) mg/dL AST 62 H 132 H (14-36) U/L ALT 112 H 187 H (9-52) U/L Alkaline Phosphatase 155 H 344 H (38-126) U/L Total Protein 6.2 L 5.7 L (6.3-8.2) g/dL Albumin 3.4 L 3.1 L (3.5-5.0) g/dL Current Medications Generic Name Dose Route Start Last Admin Trade Name Freq PRN Reason Stop Dose Admin Albuterol Sulfate 2.5 mg 12/03/18 01:21 Ventolin Nebulized INHALATION RT-Q2H PRN Shortness Of Breath Or Wheezing Albuterol Sulfate 2.5 mg 12/03/18 08:00 12/03/18 11:05 Ventolin Nebulized INHALATION 2.5 mg RT-QID [facility] Administration Aspirin 81 mg 12/03/18 09:15 12/03/18 09:48 Aspirin PO 81 mg DAILY [facility] Administration Atorvastatin Calcium 40 mg 12/03/18 09:00 12/03/18 09:48 Lipitor PO 40 mg DAILY [facility] Administration Clopidogrel Bisulfate 75 mg 12/03/18 09:15 12/03/18 09:48 Plavix PO 75 mg DAILY [facility] Administration Escitalopram Oxalate 10 mg 12/03/18 09:15 12/03/18 09:48 Lexapro PO 10 mg DAILY [facility] Administration Ferrous Sulfate 325 mg 12/03/18 09:15 12/03/18 13:22 Feosol PO 325 mg DAILY [facility] Administration Furosemide 40 mg 12/03/18 21:00 Lasix IV Q12HR [facility] Vancomycin HCl 750 mg/ Sodium 250 mls @ 125 mls/hr 12/03/18 07:00 12/03/18 06:29 Chloride IVPB 125 mls/hr Q12H [facility] Administration Sodium Chloride 1,000 mls @ 50 mls/hr 12/03/18 13:30 Saline 0.9% IV .Q20H [facility] Losartan Potassium 25 mg 12/03/18 21:00 Cozaar PO HS [facility] Metoprolol Tartrate 25 mg 12/03/18 09:15 12/03/18 09:48 Lopressor PO 25 mg BID [facility] Administration Miscellaneous Information 1 each 12/04/18 06:00 Vancomycin Trough Due MISCELLANE 12/04/18 06:01 ONCE ONE Potassium Chloride 20 meq 12/03/18 09:15 12/03/18 09:48 K-Dur 20 PO 20 meq DAILY [facility] Administration Intake and Output 12/02/18 12/03/18 12/03/18 22:59 06:59 14:59 Intake Total 430 Output Total 200 Balance 230 Intake: Intake, IV Titration 250 Amount Vancomycin 750 mg In 250 Sodium Chloride 0.9% 250 ml @ 125 mls/hr IVPB Q12H [facility] Rx#:[id number] Oral 180 Output: Urine 200 Other: Voiding Method Diaper Diaper Diaper # Voids 2 # Bowel Movements 1 Weight 41.73 kg 42 kg 12/03/18 05:18 12/03/18 05:18 - EKG Interpretation EKG: normal ST/T EKG Interpretations (text) Sinus Tachycardia
[2018-12-03] MEDS: IPRATROPIUM-ALBUTEROL 3 ML NEB INHALATION SCH ×4 (15:41→23:44)
[2018-12-03] MEDS: BUDESONIDE 1 MG/2 ML NEBU INHALATION SCH ×2 (15:41→19:53)
[2018-12-03] MEDS: guaiFENesin 600 MG TABLET.ER PO SCH ×2 (17:21→20:22)
[2018-12-03] MEDS: NICOTINE 21MG/24HR PATCH TRANSDERM SCH (17:21)
[2018-12-03] MEDS: PIPERACILLIN-TAZOBACTAM 3.375 GM in SODIUM CHLORIDE 0.9% 100 ML IVPB SCH ×2 (17:21→23:33)
[2018-12-03] MEDS: ENOXAPARIN 40 MG/0.4 ML SYRINGE SQ SCH (17:21)
--- NOTE | 2018-12-03 17:52 | ECHOF ---
Referral Reason:SOB/Elevated Troponin MEASUREMENTS -------- HEIGHT: 175.3 cm WEIGHT: 41.7 kg BP: RVIDd: 3.0 cm (< 3.3) IVSd: 0.8 cm (0.6 - 1.1) LVIDd: 4.0 cm (3.9 - 5.3) LVPWd: 1.1 cm (0.6 - 1.1) IVSs: 1.3 cm LVIDs: 3.6 cm LVPWs: 0.8 cm LAESV Index (A-L): 34.97 ml/m Ao Diam: 2.4 cm (2.0 - 3.7) AV Cusp: 0.7 cm (1.5 - 2.6) LA Diam: 3.6 cm (2.7 - 3.8) MV E Gordon: 1.23 m/s MV DecT: 176 ms MV A Gordon: 0.51 m/s MV E/A Ratio: 2.40 AV maxP.96 mmHg AV meanP.88 mmHg RAP: 20.00 mmHg RVSP: 40.74 mmHg TAPSE: 9.72 mm FINDINGS -------- Resting tachycardia (HR>100bpm). This was a technically good study. The left ventricular size is normal. Left ventricular wall thickness is normal. There is severe g lobal hypokinesis of LV . Overall left ventricular systolic function is severely impaired with, an EF between 20 - 25 %. Increased LAP. Grade 3 Diastolic Dysfunction. The right ventricle is normal in size. The right ventricular systolic function is severely impaired . LA is moderately dilated 34-39 ml/m2 The right atrial size is normal. IAS not well Visualized. Aortic valve is trileaflet and is moderately thickened. Peak/mean gradient across the Aortic Valve is 7.96mmHg / 3.88mmHg. The mitral valve is normal. The mitral valve leaflets are mildly thickened. Severe mitral regurgi tation is present. The tricuspid valve appears structurally normal. Mild tricuspid regurgitation present. There is m ild pulmonary hypertension. There is no pulmonic regurgitation present. The aortic root size is normal. The inferior vena cava is dilated with no significant inspiratory collapse which is consistent estima bea right atrial pressure of >20 mmHg. There is no pericardial effusion. CONCLUSIONS -------- 1. Resting tachycardia (HR>100bpm). 2. This was a technically good study. 3. The left ventricular size is normal. 4. Left ventricular wall thickness is normal. 5. There is severe global hypokinesis of LV . 6. Overall left ventricular systolic function is severely impaired with, an EF between 20 - 25 %. 7. Increased LAP. Grade 3 Diastolic Dysfunction. 8. The right ventricle is normal in size. 9. The right ventricular systolic function is severely impaired. 10. LA is moderately dilated 34-39 ml/m2 11. The right atrial size is normal. 12. IAS not well Visualized. 13. Aortic valve is trileaflet and is moderately thickened. 14. Peak/mean gradient across the Aortic Valve is 7.96mmHg / 3.88mmHg. 15. The mitral valve is normal. 16. The mitral valve leaflets are mildly thickened. 17. Severe mitral regurgitation is present. 18. The tricuspid valve appears structurally normal. 19. Mild tricuspid regurgitation present. 20. There is mild pulmonary hypertension. 21. There is no pulmonic regurgitation present. 22. The aortic root size is normal. 23. The inferior vena cava is dilated with no significant inspiratory collapse which is consistent es timated right atrial pressure of >20 mmHg. 24. There is no pericardial effusion. [employer] ARCHITECT: Vera Milner RDCS
[2018-12-03] MEDS: FUROSEMIDE 10 MG/ML 4 ML VIAL IV SCH (20:28)
[2018-12-03] MEDS: LOSARTAN 25 MG TAB PO SCH (20:33)
[2018-12-03 23:51] LABS: Glucose,Whole Blood 121 mg/dL (75-99)
[2018-12-04] MEDS: IPRATROPIUM-ALBUTEROL 3 ML NEB INHALATION SCH ×6 (04:01→23:06)
[2018-12-04] MEDS ORDERED: VANCOMYCIN TROUGH DUE 1 EACH MISC MISCELLANE ONE (06:00)
[2018-12-04 07:44] LABS: Albumin 3.3 g/dL (3.5-5.0); Calcium 9.1 mg/dL (8.4-10.2); Potassium 3.4 mmol/L (3.5-5.1); Total Bilirubin 0.8 mg/dL (0.2-1.3); Total Protein 6.3 g/dL (6.3-8.2)
[2018-12-04] MEDS: ONDANSETRON 4 MG/2 ML VIAL IVP PRN ×2 (08:14→21:04)
[2018-12-04] MEDS: NICOTINE 21MG/24HR PATCH TRANSDERM SCH (08:14)
[2018-12-04] MEDS: FUROSEMIDE 10 MG/ML 4 ML VIAL IV SCH ×2 (08:14→21:04)
[2018-12-04] MEDS: PIPERACILLIN-TAZOBACTAM 3.375 GM in SODIUM CHLORIDE 0.9% 100 ML IVPB SCH ×2 (08:19→17:36)
[2018-12-04] MEDS: BUDESONIDE 1 MG/2 ML NEBU INHALATION SCH ×2 (08:58→19:33)
[2018-12-04] MEDS: METOPROLOL TARTRATE 50 MG TAB PO SCH (12:19)
[2018-12-04] MEDS ORDERED: FLUCONAZOLE 100 MG TAB PO ONE (12:30)
--- NOTE | 2018-12-04 13:57 | P.PN ---
Subjective Progress Note Date: 12/04/18 Principal diagnosis: acute exacerbation of systolic congestive heart failure and acute exacerbation of COPD with purulent tracheobronchitis. This is a very pleasant 78-year-old female patient who follows with Dr. De León as her primary care physician. She has a history of bilateral kuizp-voj-jvty amputation with history of chronic ulcers of the stump as well as ulcers of the back, hypertension, peripheral vascular disease, polyneuropathy, chronic and ongoing tobacco dependence with suspected chronic obstructive pulmonary disease. 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 She lives alone. She transfers from bed to wheelchair and a transfer board. She is brought here to the emergency room yesterday with increasing shortness of breath cough and congestion. Chest x-ray revealed some interstitial edema right greater than left with some interstitial fibrotic changes. She is seen today in consultation on the selective care unit. She is currently resting in bed. Awake and alert in no acute distress. She is breathing a bit easier today as compared to yesterday. Maintaining O2 saturations in the upper 90s on 2 L/m per nasal cannula. She's afebrile. Stool and urine cultures are pending. White count 8.9. Hemoglobin 12.5. Creatinine 0.64. Troponin 0.329, 0.815, 0.572. ProBNP 36,200. Pro-Calcitonin 0.90. She's been initiated on albuterol updraft treatments, IV diuretics, vancomycin. Cefepime and azithromycin discontinued. Reevaluated today on 12/04/2018, patient is feeling better, breathing easier, denies any cough no wheezing, no shortness of breath.she was seen by cardiology, and she was felt to have acute on chronic systolic Congestive heart failure, the recommendation was to increase the Lasix to 40 mg IV push twice a day, placed on losartan, lisinopril is presently on hold, and metoprolol was increased to 25 mg twice a day. Patient seems to be clinically responding to the treatment.labs showed low potassium of 3.4 BUN is 41 and creatinine 0.77. Liver enzymes seem to be on the rise.being addressed by the admitting physician. Objective - Vital Signs Vital signs: Vital Signs Temp 97.6 F 12/04/18 08:00 Pulse 108 H 12/04/18 13:44 Resp 22 12/04/18 08:00 BP 180/96 12/04/18 08:00 Pulse Ox 90 L 12/04/18 08:00 Intake & Output 12/03/18 12/04/18 12/04/18 18:59 06:59 18:59 Intake Total 470 Output Total 450 500 Balance 20 -500 Weight 43.5 kg 43.5 kg Intake: Intake, IV Titration 290 Amount Sodium Chloride 0.9% 1, 40 000 ml @ 50 mls/hr IV . Q20H [facility] Rx#:[id number] Vancomycin 750 mg In 250 Sodium Chloride 0.9% 250 ml @ 125 mls/hr IVPB Q12H [facility] Rx#:[id number] Oral 180 Output: Urine 450 500 Other: Voiding Method Bedpan Bedpan Bedpan Diaper Diaper Diaper # Voids 1 1 - Exam GENERAL EXAM: revealed 78-year-old female in no distress. Improved compared to admission. HEAD: Normocephalic.atraumatic. HEENT: PERRLA, EOMI, no icterus. CHEST: No chest wall deformity. LUNGS: minimal fine crackles at the bases, symmetrical chest expansion. CVS: S1 and S2 normal with no audible murmur, regular rhythm. ABDOMEN: No hepatosplenomegaly, normal bowel sounds, no guarding or rigidity. SPINE: No scoliosis or deformity SKIN: Small opening on the right stump. CENTRAL NERVOUS SYSTEM: No focal deficits, tone is normal in all 4 extremities. EXTREMITIES: Bilateral fiikd-lxn-jldq amputee. No clubbing, no cyanosis. Peripheral pulses are intact. - Labs CBC & Chem 7: 12/03/18 05:18 12/04/18 07:03 Labs: Abnormal Lab Results - Last 24 Hours (Table) 12/03/18 12/04/18 Range/Units 23:50 07:03 Potassium 3.4 L (3.5-5.1) mmol/L BUN 41 H (7-17) mg/dL Glucose 129 H (74-99) mg/dL POC Glucose (mg/dL) 121 H (75-99) mg/dL AST 292 H (14-36) U/L ALT 338 H (9-52) U/L Alkaline Phosphatase 257 H (38-126) U/L Albumin 3.3 L (3.5-5.0) g/dL Microbiology - Last 24 Hours (Table) 12/02/18 20:06 Urine Culture - Final Urine,Voided 12/02/18 18:35 Blood Culture - Preliminary Blood No Growth after 24 hours Assessment and Plan Assessment: impression: 1 acute on chronic systolic congestive heart failure. #2 Acute exacerbation of suspected chronic obstructive pulmonary disease, compli cated by acute tracheobronchitis. #3 Chronic and ongoing tobacco dependence. #4 Bilateral awkmv-hdx-rlmg amputee with small ulcerations being followed by infectious disease. #5 History of essential hypertension. #6 Peripheral vascular disease. #7 Poor overall functional performance based on the above-mentioned multiple comorbidities. Plan:continue present course of treatment including diuretics, bronchodilators, echocardiogram showed severe LV dysfunction, counseled again regarding smoking cessation, continue nicotine patch, continue to follow and possibly discharge planning in the next 24-48 hours. Long-term prognosis considering her multiple medical problems is poor and guarded. Time with Patient: Less than 30
--- NOTE | 2018-12-04 14:27 | P.PN ---
Subjective Progress Note Date: 12/04/18 Principal diagnosis: Acute on Chronic Systolic HF Patient currently resting in bed, states she does not feel well. States she did not get any sleep last night with constant interruptions. Continues sinus tach on monitors even with beta evan initiation, hr 102. Patient has significant bilateral wheeze with coarse rhonchi. History of ezpyi-dxd-qoet applications bilaterally. Continue current medical/medication regime. Increase metoprolol tartrate to 50 mg in a.m. and 25 mg in p.m. Continue IV Lasix 40 mg every 12 hours. Replace potassium, currently 3.4. Pt currently refusing oral medication. Will continue to follow. PHYSICAL EXAM: VITAL SIGNS: 180/96 GENERAL: Well developed, in no acute distress. HEENT: Head is atraumatic, normocephalic. Pupils are equal, round. Extra ocular movements intact. Mucous membranes moist. Neck supple. No JVD. No carotid bruit. No thyromegaly. LUNGS: Bilateral wheezes and course rhonchi. No chest wall tenderness on palpation or with deep breathing. HEART: Regular rate and rhythm, no rubs or gallops. S1 and S2 heard. No murmur. Tachycardia. ABDOMEN: Abdominal exam, WNL. Bowel sounds x4 quads. Soft, non-tender, without masses, organomegaly, or abdominal aorta enlargement. EXTREMITIES/VASCULAR: Upper extremities WNL. Bilateral above the knee amputation. No cyanosis, calf tenderness. NEUROLOGIC: Patient is awake, alert and oriented x3. No focal neurologic abnormalities. Objective - Vital Signs Vital signs: Vital Signs Temp 97.6 F 12/04/18 08:00 Pulse 108 H 12/04/18 13:44 Resp 22 12/04/18 08:00 BP 180/96 12/04/18 08:00 Pulse Ox 90 L 12/04/18 08:00 Intake & Output 12/03/18 12/04/18 12/04/18 18:59 06:59 18:59 Intake Total 470 Output Total 450 500 Balance 20 -500 Weight 43.5 kg 43.5 kg Intake: Intake, IV Titration 290 Amount Sodium Chloride 0.9% 1, 40 000 ml @ 50 mls/hr IV . Q20H [facility] Rx#:[id number] Vancomycin 750 mg In 250 Sodium Chloride 0.9% 250 ml @ 125 mls/hr IVPB Q12H [facility] Rx#:[id number] Oral 180 Output: Urine 450 500 Other: Voiding Method Bedpan Bedpan Bedpan Diaper Diaper Diaper # Voids 1 1 - Labs CBC & Chem 7: 12/03/18 05:18 12/04/18 07:03 Labs: Abnormal Lab Results - Last 24 Hours (Table) 12/03/18 12/04/18 Range/Units 23:50 07:03 Potassium 3.4 L (3.5-5.1) mmol/L BUN 41 H (7-17) mg/dL Glucose 129 H (74-99) mg/dL POC Glucose (mg/dL) 121 H (75-99) mg/dL AST 292 H (14-36) U/L ALT 338 H (9-52) U/L Alkaline Phosphatase 257 H (38-126) U/L Albumin 3.3 L (3.5-5.0) g/dL Microbiology - Last 24 Hours (Table) 12/02/18 20:06 Urine Culture - Final Urine,Voided 12/02/18 18:35 Blood Culture - Preliminary Blood No Growth after 24 hours
[2018-12-04] MEDS ORDERED: POTASSIUM CHLORIDE ER 20 MEQ TAB.ER PO STA (14:28)
[2018-12-04] MEDS: CLOPIDOGREL 75 MG TAB PO SCH (17:34)
[2018-12-04] MEDS: ASPIRIN 81 MG PO SCH (17:34)
[2018-12-04] MEDS: ATORVASTATIN 40 MG TAB PO SCH (17:34)
[2018-12-04] MEDS: ESCITALOPRAM 10 MG TAB PO SCH (17:35)
[2018-12-04] MEDS: guaiFENesin 600 MG TABLET.ER PO SCH ×2 (17:35→20:43)
[2018-12-04] MEDS: POTASSIUM CHLORIDE ER 20 MEQ TAB.ER PO SCH ×3 (17:35→20:43)
[2018-12-04] MEDS: FERROUS SULFATE 325 MG TAB PO SCH (17:35)
[2018-12-04] MEDS: ENOXAPARIN 40 MG/0.4 ML SYRINGE SQ SCH (17:35)
--- NOTE | 2018-12-04 20:22 | P.PN ---
Progress Note - Text Progress Note Date: 12/04/18 Chief Complaint: Cough Interval history: This is a pleasant 78-year-old patient who follows with Dr. Allen. Also follows with hospitality host Dr. Hawkins. Chronic stable medical conditions include hypertension, hyperlipidemia, GERD, peripheral artery disease, peripheral neuropathy, bilateral above-knee amputation. Patient was recently in the hospital patient does not remember which subsequent to that she had gone in for rehab to [facility] off [address] Subsequent to that she's been home for 4 days. Patient now presents with cough which is rather congested. Not able to expectorate. Denies any FEVER and chills. Appetite has been lousy. Patient been having 3-4 bowel movements a day. Mushy. No abdominal pain. No fever no chills. Normally uses a wheelchair to get about. No blood in the stool. Patient has continued to smoke. Short of breath and wheezing. Admitted with CHF exacerbation, COPD exacerbation and pneumonia. Today-sitting comfortable in bed. Short of breath at rest. Some improvement wheezing. Feeling a bit more hungry. Tired. Review of systems: Was done for constitutional, cardiovascular, GI, pulmonary. relevant finding as above Active Medications Albuterol Sulfate (Ventolin Nebulized) 2.5 mg INHALATION RT-Q2H PRN PRN Reason: Shortness Of Breath Or Wheezing Last Admin: 12/04/18 05:17 Dose: 2.5 mg Documented by: Albuterol/Ipratropium (Duoneb 0.5 Mg-3 Mg/3 Ml Soln) 3 ml INHALATION RT-Q4H REPLACED BY [facility] Last Admin: 12/04/18 19:33 Dose: 3 ml Documented by: Aspirin (Aspirin) 81 mg PO DAILY REPLACED BY [facility] Last Admin: 12/04/18 17:34 Dose: Not Given Documented by: Atorvastatin Calcium (Lipitor) 40 mg PO DAILY REPLACED BY [facility] Last Admin: 12/04/18 17:34 Dose: Not Given Documented by: Budesonide (Pulmicort) 1 mg INHALATION RT-BID REPLACED BY [facility] Last Admin: 12/04/18 19:33 Dose: 1 mg Documented by: Clopidogrel Bisulfate (Plavix) 75 mg PO DAILY REPLACED BY [facility] Last Admin: 12/04/18 17:34 Dose: Not Given Documented by: Enoxaparin Sodium (Lovenox) 40 mg SQ DAILY REPLACED BY [facility] Last Admin: 12/04/18 17:35 Dose: Not Given Documented by: Escitalopram Oxalate (Lexapro) 10 mg PO DAILY REPLACED BY [facility] Last Admin: 12/04/18 17:35 Dose: Not Given Documented by: Ferrous Sulfate (Feosol) 325 mg PO DAILY REPLACED BY [facility] Last Admin: 12/04/18 17:35 Dose: Not Given Documented by: Fluconazole (Diflucan) 100 mg PO DAILY REPLACED BY [facility] Furosemide (Lasix) 40 mg IV Q12HR REPLACED BY [facility] Last Admin: 12/04/18 08:14 Dose: 40 mg Documented by: Guaifenesin (Mucinex) 1,200 mg PO Q12HR REPLACED BY [facility] Last Admin: 12/04/18 17:35 Dose: Not Given Documented by: Piperacillin Sod/Tazobactam (Sod 3.375 gm/ Sodium Chloride) 100 mls @ 25 mls/hr IVPB Q8HR REPLACED BY [facility] Last Admin: 12/04/18 17:36 Dose: 25 mls/hr Documented by: Losartan Potassium (Cozaar) 25 mg PO HS REPLACED BY [facility] Last Admin: 12/03/18 20:33 Dose: Not Given Documented by: Metoprolol Tartrate (Lopressor) 50 mg PO DAILY REPLACED BY [facility] Last Admin: 12/04/18 12:19 Dose: 50 mg Documented by: Metoprolol Tartrate (Lopressor) 25 mg PO HS REPLACED BY [facility] Nicotine (Habitrol 21mg/24hr Patch) 1 patch TRANSDERM DAILY REPLACED BY [facility] Last Admin: 12/04/18 08:14 Dose: 1 patch Documented by: Ondansetron HCl (Zofran) 4 mg IVP Q6HR PRN PRN Reason: Nausea And Vomiting Last Admin: 12/04/18 08:14 Dose: 4 mg Documented by: Potassium Chloride (K-Dur 20) 20 meq PO BID REPLACED BY [facility] Physical examination: VITAL SIGNS: 97.6, 112, 22, 180/96, 90% on 2 L GENERAL: Sitting up, short of breath but a shade better than yesterday EYES: Pupils equal. Conjunctiva palel. HEENT: External appearance of nose and ears normal, oral cavity grossly normal. NECK: JVD not raised; masses not palpable. HEART: First and second heart sounds are normal; no edema. LUNGS: Respiratory rate normal; clear to auscultation. ABDOMEN: Soft, nontender, liver spleen not palpable, no masses palpable. PSYCH: Alert and oriented x3; mood and affect anxious Extremities: Bilateral above-knee amputation, wound on the right stump covered INVESTIGATIONS, reviewed in the clinical context: Potassium 3.4 creatinine 0.77 AST 292 ALT 338 Admission testing White count 15.7 hemoglobin 12.6 platelets 207 potassium 4.1 bun 28 creatinine 0.57 AST 62 ALT 11 2 repeat 132 and 187 Troponin I 0.032, 0.81, 0.57 Albumin 3.1 proBNP [id number] Procan calcitonin 0.9 UA positive for leukoesterase WBC EKG tracing personally reviewed by me shows-sinus rhythm left bundle branch block -Chest x-ray film personally reviewed by me-shows some cardiomegaly and diffuse infiltrate with possible chronic changes, the lateral film shows fluid in the oblique fissure 2-D echo-EF 20-25%, severe mitral regurgitation severe global hypokinesis Assessment: -Acute on chronic congestive heart failure exacerbation, systolic dysfunction EF 20/25 percent, slow to improve -Possible pneumonia, suspect gram-negative organism -Acute COPD exacerbation in a current smoker -Severe mitral regurgitation, nonrheumatic -Chronic nicotine dependence patient cigarette smoker -Possible acute UTI from cystitis -Chronic bilateral above-knee amputation -Chronic right lower extremity stump wound -Nygu-rc-mwniqjze protein calorie malnutrition-as evidenced by low albumin, decreased muscle mass, loss of body fat, prominent bony eminence -Hepatitis possibly ischemic. Worsening -Peripheral arterial disease -GERD -Hyperlipidemia Plan: We'll DC the Lipitor. Repeat checks x-ray in the morning. Carotids IV Zosyn. Prognosis guarded. Had a very lengthy talk with the patient. Did reemphasize smoke cessation. She and understands the Same. She is not really a rehab candidate. She'll have tried to get some help at home or moved to the family . She will work on that with the telephonic case manager.
[2018-12-04] MEDS: METOPROLOL TARTRATE 25 MG TAB PO SCH (20:43)
[2018-12-04] MEDS: LOSARTAN 25 MG TAB PO SCH (20:43)
[2018-12-05] MEDS: IPRATROPIUM-ALBUTEROL 3 ML NEB INHALATION SCH ×6 (03:31→23:29)
[2018-12-05] MEDS: PIPERACILLIN-TAZOBACTAM 3.375 GM in SODIUM CHLORIDE 0.9% 100 ML IVPB SCH ×3 (04:01→16:37)
[2018-12-05] MEDS: ONDANSETRON 4 MG/2 ML VIAL IVP PRN ×3 (04:04→22:17)
[2018-12-05 06:42] LABS: Calcium 9.2 mg/dL (8.4-10.2); Magnesium 1.8 mg/dL (1.6-2.3)
[2018-12-05 06:55] LABS: Potassium 2.6 mmol/L (3.5-5.1)
--- NOTE | 2018-12-05 07:28 | XR ---
EXAMINATION TYPE: XR chest 2V DATE OF EXAM: 12/05/2018 COMPARISON: 12/02/2018 HISTORY: Congestive heart failure. Shortness of breath. Follow-up exam. TECHNIQUE: Frontal and lateral views of the chest are obtained. FINDINGS: Mild interstitial prominence has improved from 12/02/2018 and nearly resolved. Minimal righ t basilar atelectasis is seen. Patchy left midlung airspace disease may also represent atelectasis or pulmonary vascular confluence. Cardia mediastinal silhouette is mildly enlarged but stable. No sizab le pneumothorax. Trace pleural effusion on the right. Left costophrenic angle is well aerated. Modera te degenerative changes of the spine. IMPRESSION: Improving sequela of congestive heart failure with nearly resolved interstitial edema, t race right pleural effusion remaining, and probable multifocal subsegmental atelectasis.
[2018-12-05] MEDS: FUROSEMIDE 10 MG/ML 4 ML VIAL IV SCH (08:28)
[2018-12-05] MEDS: NICOTINE 21MG/24HR PATCH TRANSDERM SCH (08:28)
[2018-12-05] MEDS: POTASSIUM CHLORIDE ER 20 MEQ TAB.ER PO SCH ×4 (08:28→22:10)
[2018-12-05] MEDS: ENOXAPARIN 40 MG/0.4 ML SYRINGE SQ SCH (08:28)
[2018-12-05] MEDS: FLUCONAZOLE 100 MG TAB PO SCH (08:29)
[2018-12-05] MEDS: BUDESONIDE 1 MG/2 ML NEBU INHALATION SCH ×2 (08:50→19:56)
[2018-12-05] MEDS ORDERED: Potassium Replacement Protocol 1 EACH MISC MISCELLANE PRN (11:46)
--- NOTE | 2018-12-05 12:11 | P.PN ---
Subjective Progress Note Date: 12/05/18 Principal diagnosis: Acute exacerbation of systolic congestive heart failure and acute exacerbation of COPD with purulent tracheobronchitis This is a very pleasant 78-year-old female patient who follows with Dr. De León as her primary care physician. She has a history of bilateral vadsu-mqt-xocz amputation with history of chronic ulcers of the stump as well as ulcers of the back, hypertension, peripheral vascular disease, polyneuropathy, chronic and ongoing tobacco dependence with suspected chronic obstructive pulmonary disease. 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 She lives alone. She transfers from bed to wheelchair and a transfer board. She is brought here to the emergency room yesterday with increasing shortness of breath cough and congestion. Chest x-ray revealed some interstitial edema right greater than left with some interstitial fibrotic changes. She is seen today in consultation on the selective care unit. She is currently resting in bed. Awake and alert in no acute distress. She is breathing a bit easier today as compared to yesterday. Maintaining O2 saturations in the upper 90s on 2 L/m per nasal cannula. She's afebrile. Stool and urine cultures are pending. White count 8.9. Hemoglobin 12.5. Creatinine 0.64. Troponin 0.329, 0.815, 0.572. ProBNP 36,200. Pro-Calcitonin 0.90. She's been initiated on albuterol updraft treatments, IV diuretics, vancomycin. Cefepime and azithromycin discontinued. Reevaluated today on 12/04/2018, patient is feeling better, breathing easier, denies any cough no wheezing, no shortness of breath.she was seen by cardiology, and she was felt to have acute on chronic systolic Congestive heart failure, the recommendation was to increase the Lasix to 40 mg IV push twice a day, placed on losartan, lisinopril is presently on hold, and metoprolol was increased to 25 mg twice a day. Patient seems to be clinically responding to the treatment.labs showed low potassium of 3.4 BUN is 41 and creatinine 0.77. Liver enzymes seem to be on the rise.being addressed by the admitting physician. On 12/05/2018 patient seen in follow-up on selective care unit, she is awake and alert, in no acute distress, on 2 L of oxygen her pulse ox is 96%, afebrile, hemodynamically stable, lung sounds reveal coarse crackles over right lower lobe, and scattered rhonchi throughout, no cough, so far stool, blood urine and sputum cultures are negative, patient is on Zosyn, and Diflucan, in addition to oral Lasix 60 mg twice daily. Today's chest x-ray shows improving and nearly resolved interstitial edema, and trace right pleural effusion and probable multifocal subsegmental atelectasis. Labs revealed potassium of 2.6, and patient's serum potassium is being supplemented. In addition patient has been nauseous, she had a few episodes of vomiting, we'll supplement with IV potassium chloride. Today's PT was elevated at 84,900. Objective - Vital Signs Vital signs: Vital Signs Temp 97.9 F 12/05/18 08:00 Pulse 92 12/05/18 09:05 Resp 18 12/05/18 08:00 BP 157/83 12/05/18 08:00 Pulse Ox 96 12/05/18 08:00 Intake & Output 12/04/18 12/05/18 12/05/18 18:59 06:59 18:59 Intake Total 480 600 50 Output Total 500 Balance -20 600 50 Weight 43.5 kg 44.5 kg Intake: Intake, IV Titration 200 Amount Piperacillin-Tazobactam 3 200 .375 gm In Sodium Chloride 0.9% 100 ml @ 25 mls/hr IVPB Q8HR [facility] Rx# :[id number] Oral 480 400 50 Output: Urine 500 Other: Voiding Method Bedpan Bedpan Diaper Diaper Diaper Incontinent # Voids 1 6 - Exam GENERAL EXAM: Alert, pleasant, 78-year-old thin white female, and 2 L of oxygen HEAD: Normocephalic/atraumatic. EYES: Normal reaction of pupils, equal size. Conjunctiva pink, sclera white. NOSE: Clear with pink turbinates. THROAT: No erythema or exudates. NECK: No masses, no JVD, no thyroid enlargement, no adenopathy. CHEST: No chest wall deformity. Symmetrical expansion. LUNGS: Equal air entry with coarse crackles at the right lower base, and scattered rhonchi CVS: Regular rate and rhythm, normal S1 and S2, no gallops, no murmurs, no rubs ABDOMEN: Soft, nontender. No hepatosplenomegaly, normal bowel sounds, no guard ing or rigidity. EXTREMITIES: No clubbing, no edema, no cyanosis, patient has bilateral ulzjw-qds-xeru amputations MUSCULOSKELETAL: Muscle strength and tone normal. SPINE: No scoliosis or deformity SKIN: No rashes, patient has a open area on right stump, covered with dressing CENTRAL NERVOUS SYSTEM: Alert and oriented -3. No focal deficits, tone is normal in all 4 extremities. PSYCHIATRIC: Alert and oriented -3. Appropriate affect. Intact judgment and insight. - Labs CBC & Chem 7: 12/03/18 05:18 12/05/18 06:03 Labs: Abnormal Lab Results - Last 24 Hours (Table) 12/05/18 Range/Units 06:03 Potassium 2.6 L* (3.5-5.1) mmol/L Carbon Dioxide 31 H (22-30) mmol/L BUN 41 H (7-17) mg/dL Glucose 116 H (74-99) mg/dL Microbiology - Last 24 Hours (Table) 12/02/18 00:40 Stool Culture - Preliminary Stool 12/05/18 07:15 Sputum Culture - Preliminary Sputum 12/02/18 18:35 Blood Culture - Preliminary Blood No Growth after 48 hours Assessment and Plan Plan: Assessment: #1 acute on chronic systolic congestive heart failure. #2 Acute exacerbation of suspected chronic obstructive pulmonary disease, complicated by acute tracheobronchitis. #3 Chronic and ongoing tobacco dependence. #4 Bilateral zaxgq-paj-ysjq amputee with small ulcerations being followed by infectious disease. #5 History of essential hypertension. #6 Peripheral vascular disease. #7 Poor overall functional performance based on the above-mentioned multiple comorbidities. #8 hypokalemia, related to diuretic therapy and vomiting Plan: Continue current antibiotics, and oral diuretics, supplemental the serum potassium with IV potassium chloride. Today's chest x-ray has been reviewed showing improvements in the appearance of interstitial edema, acute I know's, daily weights. Daily labs, monitor renal profile, and electrolytes. Microbiology results have been reviewed and are negative thus far, no complaints of worsening dyspnea or chest pain, no significant cough or phlegm production. I performed a history & physical examination of the patient and discussed their management with my nurse practitioner, Theresa Silva. I reviewed the nurse practitioner's note and agree with the documented findings and plan of care. Lung sounds are positive for scattered rhonchi and coarse rales at the right lower base The findings and the impression was discussed with the patient. I attest to the documentation by the nurse practitioner. Time with Patient: Less than 30
--- NOTE | 2018-12-05 12:20 | P.PN ---
Subjective Progress Note Date: 12/05/18 is a very pleasant 78-year-old female patient who follows with Dr. De León as her primary care physician. She has a history of bilateral mljut-isn-koxx amputation with history of chronic ulcers of the stump as well as ulcers of the back, hypertension, peripheral vascular disease, polyneuropathy, chronic and ongoing tobacco dependence with suspected chronic obstructive pulmonary disease. 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 She lives alone. She transfers from bed to [facility] and a transfer board. She was brought here to the emergency room with increasing shortness of breath cough and congestion. She did on IV Lasix and is overall diuresed very well. She had a chest x-ray performed today which showed almost complete resolution in her congestive cardiac failure she continues to be on IV Lasix. Echo cardiac gram with Doppler study revealed an ejection fraction of 20-25%. Severe mitral regurgitation noted. Hemodynamically stable. Sodium 142, potassium 2.6 today, BUN 41 and creatinine 0.7, magnesium 1.8. Objective - Vital Signs Vital signs: Vital Signs Temp 97.9 F 12/05/18 08:00 Pulse 100 12/05/18 12:08 Resp 18 12/05/18 08:00 BP 157/83 12/05/18 08:00 Pulse Ox 96 12/05/18 08:00 Intake & Output 12/04/18 12/05/18 12/05/18 18:59 06:59 18:59 Intake Total 480 600 50 Output Total 500 Balance -20 600 50 Weight 43.5 kg 44.5 kg Intake: Intake, IV Titration 200 Amount Piperacillin-Tazobactam 3 200 .375 gm In Sodium Chloride 0.9% 100 ml @ 25 mls/hr IVPB Q8HR [facility] Rx# :[id number] Oral 480 400 50 Output: Urine 500 Other: Voiding Method Bedpan Bedpan Diaper Diaper Diaper Incontinent # Voids 1 6 - Exam GENERAL EXAM: Alert, comfortable in no apparent distress. On 2 L nasal cannula. O2 saturation 98%. HEAD: Normocephalic. EYES: Normal reaction of pupils, equal size. NOSE: Clear with pink turbinates. THROAT: No erythema or exudates. NECK: No masses, no JVD. CHEST: No chest wall deformity. LUNGS: Equal air entry with faint crackles in the posterior bases. CVS: S1 and S2 normal with no audible murmur, regular rhythm. ABDOMEN: No hepatosplenomegaly, normal bowel sounds, no guarding or rigidity. SPINE: No scoliosis or deformity SKIN: Small opening on the right stump. CENTRAL NERVOUS SYSTEM: No focal deficits, tone is normal in all 4 extremities. EXTREMITIES: Bilateral gnbxz-bfz-nsek amputee. No clubbing, no cyanosis. Peripheral pulses are intact. - Labs CBC & Chem 7: 12/03/18 05:18 12/05/18 06:03 Labs: Abnormal Lab Results - Last 24 Hours (Table) 12/05/18 Range/Units 06:03 Potassium 2.6 L* (3.5-5.1) mmol/L Carbon Dioxide 31 H (22-30) mmol/L BUN 41 H (7-17) mg/dL Glucose 116 H (74-99) mg/dL Microbiology - Last 24 Hours (Table) 12/02/18 00:40 Stool Culture - Preliminary Stool 12/05/18 07:15 Sputum Culture - Preliminary Sputum 12/02/18 18:35 Blood Culture - Preliminary Blood No Growth after 48 hours Assessment and Plan Plan: Impression: #1 Acute exacerbation of combined systolic and diastolic congestive heart failure with recent admission for the same at an outside facility. #2 Acute exacerbation of suspected chronic obstructive pulmonary disease, complicated by acute tracheobronchitis. #3 Chronic and ongoing tobacco dependence. #4 Bilateral dctrg-vis-cxyj amputee with small ulcerations being followed by infectious disease. #5 History of essential hypertension. #6 Peripheral vascular disease. #7 Poor overall functional performance based on the above-mentioned multiple comorbidities. Plan Discontinue the IV Lasix today and start the patient on Lasix 60 mg one tablet by mouth twice a day, replace the potassium and magnesium. Case management will also be in to see the patient for possible short-term rehab. Plan for possible discharge in the next 24 hours if stable. DNP note has been reviewed, I agree with a documented findings and plan of care. Patient was seen and examined.
[2018-12-05] MEDS: POTASSIUM CHLORIDE 10 MEQ in WATER FOR INJECTION 1 100ML.BAG IVPB SCH ×6 (12:26→23:44)
[2018-12-05] MEDS: METOPROLOL TARTRATE 50 MG TAB PO SCH (15:25)
[2018-12-05] MEDS: FUROSEMIDE 20 MG TAB PO SCH (16:37)
[2018-12-05] MEDS: ESCITALOPRAM 10 MG TAB PO SCH (17:52)
[2018-12-05] MEDS: ASPIRIN 81 MG PO SCH (17:52)
[2018-12-05] MEDS: CLOPIDOGREL 75 MG TAB PO SCH (17:52)
[2018-12-05] MEDS: guaiFENesin 600 MG TABLET.ER PO SCH ×2 (17:53→22:03)
[2018-12-05] MEDS: FERROUS SULFATE 325 MG TAB PO SCH (17:53)
--- NOTE | 2018-12-05 19:59 | P.PN ---
Progress Note - Text Progress Note Date: 12/05/18 Interval history: This is a pleasant 78-year-old patient who follows with Dr. Allen. Also follows with rubber liner Dr. Hawkins. Chronic stable medical conditions include hypertension, hyperlipidemia, GERD, peripheral artery disease, peripheral neuropathy, bilateral above-knee amputation. Patient was recently in the hospital patient does not remember which subsequent to that she had gone in for rehab to [facility] [address].. Subsequent to that she's been home for 4 days. Patient now presents with cough which is rather congested. Not able to expectorate. Denies any FEVER and chills. Appetite has been lousy. Patient been having 3-4 bowel movements a day. Mushy. No abdominal pain. No fever no chills. Normally uses a wheelchair to get about. No blood in the stool. Patient has continued to smoke. Short of breath and wheezing. Admitted with CHF exacerbation, COPD exacerbation and pneumonia. Today-feels tired. No bit better. Breathing better. Not much of an appetite. Some nauseous present. LFTs have gone up. Review of systems: Was done for constitutional, cardiovascular, GI, pulmonary. relevant finding as above Active Medications Albuterol Sulfate (Ventolin Nebulized) 2.5 mg INHALATION RT-Q2H PRN PRN Reason: Shortness Of Breath Or Wheezing Last Admin: 12/04/18 05:17 Dose: 2.5 mg Documented by: Albuterol/Ipratropium (Duoneb 0.5 Mg-3 Mg/3 Ml Soln) 3 ml INHALATION RT-Q4H [facility] Last Admin: 12/05/18 15:44 Dose: 3 ml Documented by: Aspirin (Aspirin) 81 mg PO DAILY [facility] Last Admin: 12/05/18 17:52 Dose: Not Given Documented by: Budesonide (Pulmicort) 1 mg INHALATION RT-BID [facility] Last Admin: 12/05/18 08:50 Dose: 1 mg Documented by: Clopidogrel Bisulfate (Plavix) 75 mg PO DAILY [facility] Last Admin: 12/05/18 17:52 Dose: Not Given Documented by: Enoxaparin Sodium (Lovenox) 40 mg SQ DAILY [facility] Last Admin: 12/05/18 08:28 Dose: 40 mg Documented by: Escitalopram Oxalate (Lexapro) 10 mg PO DAILY [facility] Last Admin: 12/05/18 17:52 Dose: Not Given Documented by: Ferrous Sulfate (Feosol) 325 mg PO DAILY [facility] Last Admin: 12/05/18 17:53 Dose: Not Given Documented by: Fluconazole (Diflucan) 100 mg PO DAILY [facility] Last Admin: 12/05/18 08:29 Dose: 100 mg Documented by: Furosemide (Lasix) 60 mg PO BID@0900,1600 [facility] Last Admin: 12/05/18 16:37 Dose: 60 mg Documented by: Guaifenesin (Mucinex) 1,200 mg PO Q12HR [facility] Last Admin: 12/05/18 17:53 Dose: Not Given Documented by: Piperacillin Sod/Tazobactam (Sod 3.375 gm/ Sodium Chloride) 100 mls @ 25 mls/hr IVPB Q8HR [facility] Last Admin: 12/05/18 16:37 Dose: 25 mls/hr Documented by: Losartan Potassium (Cozaar) 25 mg PO HS [facility] Last Admin: 12/04/18 20:43 Dose: Not Given Documented by: Metoprolol Tartrate (Lopressor) 50 mg PO DAILY [facility] Last Admin: 12/05/18 15:25 Dose: 50 mg Documented by: Metoprolol Tartrate (Lopressor) 25 mg PO HS [facility] Last Admin: 12/04/18 20:43 Dose: Not Given Documented by: Miscellaneous Information (Potassium Per Protocol) 1 each MISCELLANE DAILY PRN; Protocol PRN Reason: Per Protocol Nicotine (Habitrol 21mg/24hr Patch) 1 patch TRANSDERM DAILY [facility] Last Admin: 12/05/18 08:28 Dose: 1 patch Documented by: Ondansetron HCl (Zofran) 4 mg IVP Q6HR PRN PRN Reason: Nausea And Vomiting Last Admin: 12/05/18 16:36 Dose: 4 mg Documented by: Potassium Chloride (K-Dur 20) 20 meq PO BID [facility] Last Admin: 12/05/18 17:53 Dose: Not Given Documented by: Physical examination: VITAL SIGNS: 98, 98, 18, 106/75, 99% on 2 L GENERAL: Propped up in bed. A bit tired EYES: Pupils equal. Conjunctiva palel. HEENT: External appearance of nose and ears normal, oral cavity grossly normal. NECK: JVD not raised; masses not palpable. HEART: First and second heart sounds are normal; no edema. LUNGS: Respiratory rate normal; decreased breath sounds ABDOMEN: Soft, nontender, liver spleen not palpable, no masses palpable. PSYCH: Alert and oriented x3; mood and affect anxious Extremities: Bilateral above-knee amputation, wound on the right stump covered INVESTIGATIONS, reviewed in the clinical context: Potassium 2.6 creatinine 0.77 ProBNP 8 4,900 Chest x-ray film personally reviewed by me-spine shows some venous prominence Admission testing White count 15.7 hemoglobin 12.6 platelets 207 potassium 4.1 bun 28 creatinine 0.57 AST 62 ALT 11 2 repeat 132 and 187 Troponin I 0.032, 0.81, 0.57 Albumin 3.1 proBNP [id number] Procan calcitonin 0.9 UA positive for leukoesterase WBC EKG tracing personally reviewed by me shows-sinus rhythm left bundle branch block -Chest x-ray film personally reviewed by me-shows some cardiomegaly and diffuse infiltrate with possible chronic changes, the lateral film shows fluid in the oblique fissure 2-D echo-EF 20-25%, severe mitral regurgitation severe global hypokinesis Assessment: -Acute on chronic congestive heart failure exacerbation, systolic dysfunction EF 20/25 percent, still showing up with a high BNP and venous prominence of the checks x-ray today -Possible pneumonia, suspect gram-negative organism, improved -Acute COPD exacerbation in a current smoker, improving -Severe mitral regurgitation, nonrheumatic -Chronic nicotine dependence patient cigarette smoker -Possible acute UTI from cystitis -Chronic bilateral above-knee amputation -Chronic right lower extremity stump wound -Ipcz-ey-djzvrwct protein calorie malnutrition-as evidenced by low albumin, decreased muscle mass, loss of body fat, prominent bony eminence -Hepatitis possibly ischemic. Worsening -Peripheral arterial disease -GERD -Hyperlipidemia Plan: Discharge plan is a looking at long-term placement. Cardiology switch the patient to oral Lasix. We'll also DC the iron supplement and that can itself cause significant nausea. We will also try scopolamine patch. Repeat LFTs in the morning. Discussed with the patient detail. Also discussed with the manager rn case. Total time spent today was about 25 minutes with over 25 minutes in discussion.
[2018-12-05] MEDS: LOSARTAN 25 MG TAB PO SCH (22:10)
[2018-12-05] MEDS: METOPROLOL TARTRATE 25 MG TAB PO SCH (22:10)
[2018-12-05] MEDS: SCOPOLAMINE 1.5MG/72HR PATCH TRANSDERM SCH (22:17)
[2018-12-06] MEDS: LIDOCAINE 2% GEL 30 ML TUBE TOPICAL PRN ×2 (01:01→09:15)
[2018-12-06] MEDS: PIPERACILLIN-TAZOBACTAM 3.375 GM in SODIUM CHLORIDE 0.9% 100 ML IVPB SCH ×3 (01:21→16:28)
[2018-12-06] MEDS: IPRATROPIUM-ALBUTEROL 3 ML NEB INHALATION SCH ×6 (04:18→23:12)
[2018-12-06 07:06] LABS: Albumin 3.5 g/dL (3.5-5.0); Calcium 9.3 mg/dL (8.4-10.2); Total Bilirubin 0.7 mg/dL (0.2-1.3); Total Protein 6.1 g/dL (6.3-8.2)
[2018-12-06 07:13] LABS: Potassium 2.7 mmol/L (3.5-5.1)
[2018-12-06] MEDS: BUDESONIDE 1 MG/2 ML NEBU INHALATION SCH ×2 (07:29→19:42)
[2018-12-06] MEDS: GABAPENTIN 300 MG CAP PO SCH ×4 (08:51→20:52)
[2018-12-06] MEDS: ENOXAPARIN 40 MG/0.4 ML SYRINGE SQ SCH (09:01)
[2018-12-06] MEDS: POTASSIUM CHLORIDE ER 20 MEQ TAB.ER PO SCH ×5 (09:01→21:06)
[2018-12-06] MEDS: NICOTINE 21MG/24HR PATCH TRANSDERM SCH (09:02)
--- NOTE | 2018-12-06 10:23 | P.PN ---
Subjective Progress Note Date: 12/06/18 Principal diagnosis: Acute exacerbation of systolic congestive heart failure, acute exacerbation of COPD with purulent tracheobronchitis This is a very pleasant 78-year-old female patient who follows with Dr. De León as her primary care physician. She has a history of bilateral fjnyf-nks-kisc amputation with history of chronic ulcers of the stump as well as ulcers of the back, hypertension, peripheral vascular disease, polyneuropathy, chronic and ongoing tobacco dependence with suspected chronic obstructive pulmonary disease. 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 She lives alone. She transfers from bed to wheelchair and a transfer board. She is brought here to the emergency room yesterday with increasing shortness of breath cough and congestion. Chest x-ray revealed some interstitial edema right greater than left with some interstitial fibrotic changes. She is seen today in consultation on the selective care unit. She is currently resting in bed. Awake and alert in no acute distress. She is breathing a bit easier today as compared to yesterday. Maintaining O2 saturations in the upper 90s on 2 L/m per nasal cannula. She's afebrile. Stool and urine cultures are pending. White count 8.9. Hemoglobin 12.5. Creatinine 0.64. Troponin 0.329, 0.815, 0.572. ProBNP 36,200. Pro-Calcitonin 0.90. She's been initiated on albuterol updraft treatments, IV diuretics, vancomycin. Cefepime and azithromycin discontinued. Reevaluated today on 12/04/2018, patient is feeling better, breathing easier, denies any cough no wheezing, no shortness of breath.she was seen by cardiology, and she was felt to have acute on chronic systolic Congestive heart failure, the recommendation was to increase the Lasix to 40 mg IV push twice a day, placed on losartan, lisinopril is presently on hold, and metoprolol was increased to 25 mg twice a day. Patient seems to be clinically responding to the treatment.labs showed low potassium of 3.4 BUN is 41 and creatinine 0.77. Liver enzymes seem to be on the rise.being addressed by the admitting physician. On 12/05/2018 patient seen in follow-up on selective care unit, she is awake and alert, in no acute distress, on 2 L of oxygen her pulse ox is 96%, afebrile, hemodynamically stable, lung sounds reveal coarse crackles over right lower lobe, and scattered rhonchi throughout, no cough, so far stool, blood urine and sputum cultures are negative, patient is on Zosyn, and Diflucan, in addition to oral Lasix 60 mg twice daily. Today's chest x-ray shows improving and nearly resolved interstitial edema, and trace right pleural effusion and probable multifocal subsegmental atelectasis. Labs revealed potassium of 2.6, and patient's serum potassium is being supplemented. In addition patient has been nauseous, she had a few episodes of vomiting, we'll supplement with IV potassium chloride. Today's PT was elevated at 84,900. The patient is seen today 12/06/2017 in follow-up on the selective care unit. She is currently resting comfortably in bed. Awake and alert in no acute distre ss. Breathing a bit easier today as compared to yesterday. Maintaining O2 saturations up to 100% on 2 L/m per nasal cannula. She's afebrile. Blood and urine cultures reveal no growth. Sputum culture pending. Sodium 142. Potassium 2.7. Bicarb 33. Creatinine 0.76. AST 134. ALT 374. Alk phos 218. She is continued on DuoNeb inhalations, Pulmicort inhalations, antibiotics in the form of Zosyn. NicoDerm patch is in place. On Lasix 60 mg twice a day. Lovenox for PE prophylaxis. Objective - Vital Signs Vital signs: Vital Signs Temp 97 F L 12/06/18 08:00 Pulse 100 12/06/18 08:00 Resp 16 12/06/18 08:00 BP 147/80 12/06/18 08:00 Pulse Ox 100 12/06/18 08:00 Intake & Output 12/05/18 12/06/18 12/06/18 18:59 06:59 18:59 Intake Total 290 60 240 Output Total 400 Balance 290 60 -160 Weight 41.4 kg Intake: Oral 290 60 240 Output: Urine 400 Other: Voiding Method Diaper Diaper # Voids 4 2 - Exam GENERAL EXAM: Alert, pleasant, 78-year-old thin frail female patient, on 2 L of oxygen HEAD: Normocephalic/atraumatic. EYES: Normal reaction of pupils, equal size. Conjunctiva pink, sclera white. NOSE: Clear with pink turbinates. THROAT: No erythema or exudates. NECK: No masses, no JVD, no thyroid enlargement, no adenopathy. CHEST: No chest wall deformity. Symmetrical expansion. LUNGS: Equal air entry with coarse crackles at the right lower base, and scattered rhonchi CVS: Regular rate and rhythm, normal S1 and S2, no gallops, no murmurs, no rubs ABDOMEN: Soft, nontender. No hepatosplenomegaly, normal bowel sounds, no guarding or rigidity. EXTREMITIES: No clubbing, no edema, no cyanosis, patient has bilateral yrrbv-alx-lbom amputations MUSCULOSKELETAL: Muscle strength and tone normal. SPINE: No scoliosis or deformity SKIN: No rashes, patient has a open area on right stump, covered with dressing CENTRAL NERVOUS SYSTEM: No focal deficits, tone is normal in all 4 extremities. PSYCHIATRIC: Alert and oriented -3. Appropriate affect. Intact judgment and insight. - Labs CBC & Chem 7: 12/03/18 05:18 12/06/18 06:18 Labs: Abnormal Lab Results - Last 24 Hours (Table) 12/06/18 Range/Units 06:18 Potassium 2.7 L* (3.5-5.1) mmol/L Carbon Dioxide 33 H (22-30) mmol/L BUN 32 H (7-17) mg/dL Glucose 119 H (74-99) mg/dL AST 144 H (14-36) U/L ALT 374 H (9-52) U/L Alkaline Phosphatase 218 H (38-126) U/L Total Protein 6.1 L (6.3-8.2) g/dL Microbiology - Last 24 Hours (Table) 12/02/18 18:35 Blood Culture - Preliminary Blood No Growth after 72 hours 12/02/18 00:40 Stool Culture - Preliminary Stool 12/05/18 07:15 Sputum Culture - Preliminary Sputum Assessment and Plan Assessment: Impression: #1 Acute exacerbation of combined systolic and diastolic congestive heart failure with recent admission for the same at an outside facility. Echocardiogram this admission reveals severely impaired left ventricular systolic function with ejection fraction 20-25%. Right ventricular systolic function is severely impaired as well. Severe mitral regurgitation. #2 Acute exacerbation of suspected chronic obstructive pulmonary disease, complicated by acute tracheobronchitis. #3 Chronic and ongoing tobacco dependence. #4 Bilateral hjqos-hbn-iqvb amputee with small ulcerations being followed by infectious disease. #5 History of essential hypertension. #6 Peripheral vascular disease. #7 Poor overall functional performance based on the above-mentioned multiple comorbidities. Plan: The patient was seen and evaluated by Dr. Hughes. Continue current pulmonary medications. Titrate down the FiO2 as tolerated. Continue diuretics. She is educated regarding the importance of complete smoking cessation. NicoDerm patch is in place. The plan is to return to an extended care facility post discharge. I, the cosigning physician, performed a history & physical examination of the patient. Lungs sounds with crackles in the bilateral posterior bases. Maintaining good O2 saturations in the 90s on 2 L/m per nasal cannula. I discussed the assessment and plan of care with my nurse practitioner, Natividad Kruse. I attest to the above note as dictated by her.
[2018-12-06] MEDS: CLOPIDOGREL 75 MG TAB PO SCH (10:27)
[2018-12-06] MEDS: ESCITALOPRAM 10 MG TAB PO SCH (10:27)
[2018-12-06] MEDS: FUROSEMIDE 20 MG TAB PO SCH ×2 (10:27→16:23)
[2018-12-06] MEDS: FLUCONAZOLE 100 MG TAB PO SCH (10:27)
[2018-12-06] MEDS: ASPIRIN 81 MG PO SCH (10:27)
[2018-12-06] MEDS: METOPROLOL TARTRATE 50 MG TAB PO SCH (10:28)
[2018-12-06] MEDS: guaiFENesin 600 MG TABLET.ER PO SCH ×2 (10:28→21:05)
--- NOTE | 2018-12-06 12:47 | PN ---
PROGRESS NOTE This is a lady with congestive heart failure, systolic, bilateral above-knee amputations. She is more comfortable today. Potassium, however, was low. We are supplementing the potassium aggressively. Vitals are stable. JVD is 1 cm. No carotid bruit. S1, S2 heard normally. Lungs reveal improved air entry. I do not hear any significant rales at this time. Plan is to continue current medications, oral Lasix, increase activity and plan for discharge to an extended care facility today. MMODL / IJN: [id number] /
--- NOTE | 2018-12-06 20:36 | P.PN ---
Progress Note - Text Progress Note Date: 12/06/18 Interval history: This is a pleasant 78-year-old patient who follows with Dr. Allen. Also follows with security patrol officer Dr. Hawkins. Chronic stable medical conditions include hypertension, hyperlipidemia, GERD, peripheral artery disease, peripheral neuropathy, bilateral above-knee amputation. Patient was recently in the hospital patient does not remember which subsequent to that she had gone in for rehab to [facility] off [address].. Subsequent to that she's been home for 4 days. Patient now presents with cough which is rather congested. Not able to expectorate. Denies any FEVER and chills. Appetite has been lousy. Patient been having 3-4 bowel movements a day. Mushy. No abdominal pain. No fever no chills. Normally uses a wheelchair to get about. No blood in the stool. Patient has continued to smoke. Short of breath and wheezing. Admitted with CHF exacerbation, COPD exacerbation and pneumonia. Possibly ischemic hepatitis. Today-feeling a bit better. Her nausea. Some improvement room intake. Does feel weak and tired. Review of systems: Was done for constitutional, cardiovascular, GI, pulmonary. relevant finding as above Active Medications Albuterol Sulfate (Ventolin Nebulized) 2.5 mg INHALATION RT-Q2H PRN PRN Reason: Shortness Of Breath Or Wheezing Last Admin: 12/04/18 05:17 Dose: 2.5 mg Documented by: Albuterol/Ipratropium (Duoneb 0.5 Mg-3 Mg/3 Ml Soln) 3 ml INHALATION RT-Q4H [facility] Last Admin: 12/06/18 19:42 Dose: 3 ml Documented by: Aspirin (Aspirin) 81 mg PO DAILY [facility] Last Admin: 12/06/18 10:27 Dose: Not Given Documented by: Budesonide (Pulmicort) 1 mg INHALATION RT-BID [facility] Last Admin: 12/06/18 19:42 Dose: 1 mg Documented by: Clopidogrel Bisulfate (Plavix) 75 mg PO DAILY [facility] Last Admin: 12/06/18 10:27 Dose: Not Given Documented by: Enoxaparin Sodium (Lovenox) 40 mg SQ DAILY [facility] Last Admin: 12/06/18 09:01 Dose: 40 mg Documented by: Escitalopram Oxalate (Lexapro) 10 mg PO DAILY [facility] Last Admin: 12/06/18 10:27 Dose: Not Given Documented by: Fluconazole (Diflucan) 100 mg PO DAILY [facility] Last Admin: 12/06/18 10:27 Dose: Not Given Documented by: Furosemide (Lasix) 60 mg PO BID@0900,1600 [facility] Last Admin: 12/06/18 16:23 Dose: Not Given Documented by: Gabapentin (Neurontin) 600 mg PO TID [facility] Last Admin: 12/06/18 16:23 Dose: Not Given Documented by: Guaifenesin (Mucinex) 1,200 mg PO Q12HR [facility] Last Admin: 12/06/18 10:28 Dose: Not Given Documented by: Piperacillin Sod/Tazobactam (Sod 3.375 gm/ Sodium Chloride) 100 mls @ 25 mls/hr IVPB Q8HR [facility] Last Admin: 12/06/18 16:28 Dose: 25 mls/hr Documented by: Lidocaine HCl (Xylocaine Jelly 2%) 1 applic TOPICAL BID PRN PRN Reason: Mild Pain Last Admin: 12/06/18 01:01 Dose: 1 applic Documented by: Losartan Potassium (Cozaar) 25 mg PO [facility] Last Admin: 12/05/18 22:10 Dose: Not Given Documented by: Metoprolol Tartrate (Lopressor) 50 mg PO DAILY [facility] Last Admin: 12/06/18 10:28 Dose: Not Given Documented by: Metoprolol Tartrate (Lopressor) 25 mg PO [facility] Last Admin: 12/05/18 22:10 Dose: Not Given Documented by: Miscellaneous Information (Potassium Per Protocol) 1 each MISCELLANE DAILY PRN; Protocol PRN Reason: Per Protocol Nicotine (Habitrol 21mg/24hr Patch) 1 patch TRANSDERM DAILY [facility] Last Admin: 12/06/18 09:02 Dose: 1 patch Documented by: Ondansetron HCl (Zofran) 4 mg IVP Q6HR PRN PRN Reason: Nausea And Vomiting Last Admin: 12/05/18 22:17 Dose: 4 mg Documented by: Potassium Chloride (K-Dur 20) 20 meq PO BID [facility] Last Admin: 12/06/18 12:11 Dose: 20 meq Documented by: Scopolamine (Transderm-Scop 1.5mg/72hr Patch) 1 patch TRANSDERM Q72H [facility] Last Admin: 12/05/18 22:17 Dose: 1 patch Documented by: Physical examination: VITAL SIGNS: 97.1, 105, 16, 136/87, 99% on 2 L GENERAL: Sitting up in bed, tired EYES: Pupils equal. Conjunctiva palel. HEENT: External appearance of nose and ears normal, oral cavity grossly normal. NECK: JVD not raised; masses not palpable. HEART: First and second heart sounds are normal; no edema. LUNGS: Respiratory rate increased decreased breath sounds ABDOMEN: Soft, nontender, liver spleen not palpable, no masses palpable. PSYCH: Alert and oriented x3; mood and affect anxious Extremities: Bilateral above-knee amputation, wound on the right stump covered INVESTIGATIONS, reviewed in the clinical context: Potassium 2.7 creatinine 0.76 AST 144 ALT 374 ProBNP 8 4,900 Chest x-ray film personally reviewed by me-spine shows some venous prominence Admission testing White count 15.7 hemoglobin 12.6 platelets 207 potassium 4.1 bun 28 creatinine 0.57 AST 62 ALT 11 2 repeat 132 and 187 Troponin I 0.032, 0.81, 0.57 Albumin 3.1 proBNP 87201 Procan calcitonin 0.9 UA positive for leukoesterase WBC EKG tracing personally reviewed by me shows-sinus rhythm left bundle branch block -Chest x-ray film personally reviewed by me-shows some cardiomegaly and diffuse infiltrate with possible chronic changes, the lateral film shows fluid in the oblique fissure 2-D echo-EF 20-25%, severe mitral regurgitation severe global hypokinesis Assessment: -Acute on chronic congestive heart failure exacerbation, systolic dysfunction EF 20-25 percent, now on by mouth Lasix -Possible pneumonia, suspect gram-negative organism, improved -Acute COPD exacerbation in a current smoker, improving -Severe mitral regurgitation, nonrheumatic -Chronic nicotine dependence patient cigarette smoker -Possible acute UTI from cystitis -Chronic bilateral above-knee amputation -Chronic right lower extremity stump wound -Auvz-qb-xflihfbr protein calorie malnutrition-as evidenced by low albumin, decreased muscle mass, loss of body fat, prominent bony eminence -Hepatitis possibly ischemic. Worsening -Peripheral arterial disease -GERD -Hyperlipidemia -Severe hypokalemia from diuresis Plan: Care was discussed length with the patient. She has a lot of questions about her prognosis. Did talk to her about at length the same. Patient is on by mouth Lasix. Potassium being aggressively replaced. We'll switch to by mouth antibiotics tomorrow. Hopefully can DC the ECF tomorrow.
[2018-12-06] MEDS: AMOXIC-POT CLAV 875-125MG 1 EACH TAB PO SCH (20:52)
[2018-12-06] MEDS: METOPROLOL TARTRATE 25 MG TAB PO SCH (21:04)
[2018-12-06] MEDS: LOSARTAN 25 MG TAB PO SCH (21:05)
[2018-12-07] MEDS: IPRATROPIUM-ALBUTEROL 3 ML NEB INHALATION SCH ×5 (03:15→21:22)
[2018-12-07 06:16] LABS: Calcium 9.5 mg/dL (8.4-10.2); Magnesium 1.7 mg/dL (1.6-2.3); Potassium 4.2 mmol/L (3.5-5.1)
[2018-12-07] MEDS: BUDESONIDE 1 MG/2 ML NEBU INHALATION SCH ×2 (08:00→21:21)
--- NOTE | 2018-12-07 09:10 | XR ---
EXAMINATION TYPE: XR chest 1V portable DATE OF EXAM: 12/07/2018 COMPARISON: 12/05/2018 HISTORY: Pneumonia on the right lower lobe TECHNIQUE: Single frontal view of the chest is obtained. FINDINGS: Worsening right basilar opacity is seen with development of a new right trace pleural effu christelle. Chronic interstitial prominence is noted. Left costophrenic angle is well aerated. Heart is enl arged but similar to the prior. Diffuse osseous demineralization is seen. No sizable pneumothorax. Ca rdiomediastinal silhouette is shifted to the right secondary to patient positioning. IMPRESSION: Increasing right basilar airspace disease, presumed pneumonia with new trace parapneumon ic effusion. Chronic interstitial prominence that may relate to fibrosis or interstitial edema.
[2018-12-07] MEDS: guaiFENesin 600 MG TABLET.ER PO SCH ×2 (09:58→20:33)
[2018-12-07] MEDS: FUROSEMIDE 20 MG TAB PO SCH ×2 (09:58→17:52)
[2018-12-07] MEDS: ESCITALOPRAM 10 MG TAB PO SCH (09:58)
[2018-12-07] MEDS: METOPROLOL TARTRATE 50 MG TAB PO SCH (09:59)
[2018-12-07] MEDS: CLOPIDOGREL 75 MG TAB PO SCH (09:59)
[2018-12-07] MEDS: POTASSIUM CHLORIDE ER 20 MEQ TAB.ER PO SCH ×2 (09:59→20:33)
[2018-12-07] MEDS: AMOXIC-POT CLAV 875-125MG 1 EACH TAB PO SCH ×2 (09:59→20:33)
[2018-12-07] MEDS: FLUCONAZOLE 100 MG TAB PO SCH (09:59)
[2018-12-07] MEDS: ASPIRIN 81 MG PO SCH (09:59)
[2018-12-07] MEDS: ENOXAPARIN 40 MG/0.4 ML SYRINGE SQ SCH (09:59)
[2018-12-07] MEDS: GABAPENTIN 300 MG CAP PO SCH ×3 (09:59→20:33)
[2018-12-07] MEDS: NICOTINE 21MG/24HR PATCH TRANSDERM SCH (09:59)
--- NOTE | 2018-12-07 11:13 | P.PN ---
Subjective Progress Note Date: 12/07/18 Principal diagnosis: Acute exacerbation of systolic congestive heart failure, acute exacerbation of COPD with purulent tracheobronchitis This is a very pleasant 78-year-old female patient who follows with Dr. De León as her primary care physician. She has a history of bilateral cuhie-jdo-snar amputation with history of chronic ulcers of the stump as well as ulcers of the back, hypertension, peripheral vascular disease, polyneuropathy, chronic and ongoing tobacco dependence with suspected chronic obstructive pulmonary disease. 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 She lives alone. She transfers from bed to wheelchair and a transfer board. She is brought here to the emergency room yesterday with increasing shortness of breath cough and congestion. Chest x-ray revealed some interstitial edema right greater than left with some interstitial fibrotic changes. She is seen today in consultation on the selective care unit. She is currently resting in bed. Awake and alert in no acute distress. She is breathing a bit easier today as compared to yesterday. Maintaining O2 saturations in the upper 90s on 2 L/m per nasal cannula. She's afebrile. Stool and urine cultures are pending. White count 8.9. Hemoglobin 12.5. Creatinine 0.64. Troponin 0.329, 0.815, 0.572. ProBNP 36,200. Pro-Calcitonin 0.90. She's been initiated on albuterol updraft treatments, IV diuretics, vancomycin. Cefepime and azithromycin discontinued. Reevaluated today on 12/04/2018, patient is feeling better, breathing easier, denies any cough no wheezing, no shortness of breath.she was seen by cardiology, and she was felt to have acute on chronic systolic Congestive heart failure, the recommendation was to increase the Lasix to 40 mg IV push twice a day, placed on losartan, lisinopril is presently on hold, and metoprolol was increased to 25 mg twice a day. Patient seems to be clinically responding to the treatment.labs showed low potassium of 3.4 BUN is 41 and creatinine 0.77. Liver enzymes seem to be on the rise.being addressed by the admitting physician. On 12/05/2018 patient seen in follow-up on selective care unit, she is awake and alert, in no acute distress, on 2 L of oxygen her pulse ox is 96%, afebrile, hemodynamically stable, lung sounds reveal coarse crackles over right lower lobe, and scattered rhonchi throughout, no cough, so far stool, blood urine and sputum cultures are negative, patient is on Zosyn, and Diflucan, in addition to oral Lasix 60 mg twice daily. Today's chest x-ray shows improving and nearly resolved interstitial edema, and trace right pleural effusion and probable multifocal subsegmental atelectasis. Labs revealed potassium of 2.6, and patient's serum potassium is being supplemented. In addition patient has been nauseous, she had a few episodes of vomiting, we'll supplement with IV potassium chloride. Today's PT was elevated at 84,900. The patient is seen today 12/06/2017 in follow-up on the selective care unit. She is currently resting comfortably in bed. Awake and alert in no acute distre ss. Breathing a bit easier today as compared to yesterday. Maintaining O2 saturations up to 100% on 2 L/m per nasal cannula. She's afebrile. Blood and urine cultures reveal no growth. Sputum culture pending. Sodium 142. Potassium 2.7. Bicarb 33. Creatinine 0.76. AST 134. ALT 374. Alk phos 218. She is continued on DuoNeb inhalations, Pulmicort inhalations, antibiotics in the form of Zosyn. NicoDerm patch is in place. On Lasix 60 mg twice a day. Lovenox for PE prophylaxis. The patient is seen today 12/07/2018 in follow-up on the selective care unit. She is awake and alert in no acute distress. Breathing easier today as compared to yesterday. Chest x-ray shows increasing right basilar airspace disease, suspect pneumonia with a new trace parapneumonic effusion as well as continued fluid volume overload. Maintaining O2 saturations in the high 90s on 2 L/m per nasal cannula. She's afebrile. Hemodynamically stable. Blood culture reveals no growth. Urine culture reveals no growth. Sputum culture pending. Sodium 144. Potassium 4.2. Creatinine 0.76. She is currently on DuoNeb inhalations, Pulmicort inhalations, antibiotics in the form of Augmentin. Objective - Vital Signs Vital signs: Vital Signs Temp 97.6 F 12/07/18 08:00 Pulse 74 12/07/18 08:15 Resp 18 12/07/18 04:00 BP 128/81 12/07/18 08:00 Pulse Ox 99 12/07/18 08:00 Intake & Output 12/06/18 12/07/18 12/07/18 18:59 06:59 18:59 Intake Total 720 240 240 Output Total 800 100 300 Balance -80 140 -60 Weight 42 kg Intake: Oral 720 240 240 Output: Urine 800 100 300 Other: Voiding Method Diaper Diaper # Voids 1 - Exam GENERAL EXAM: Alert, pleasant, 78-year-old thin frail female patient, on 2 L of oxygen HEAD: Normocephalic/atraumatic. EYES: Normal reaction of pupils, equal size. Conjunctiva pink, sclera white. NOSE: Clear with pink turbinates. THROAT: No erythema or exudates. NECK: No masses, no JVD, no thyroid enlargement, no adenopathy. CHEST: No chest wall deformity. Symmetrical expansion. LUNGS: Equal air entry with coarse crackles at the right lower base. CVS: Regular rate and rhythm, normal S1 and S2, no gallops, no murmurs, no rubs ABDOMEN: Soft, nontender. No hepatosplenomegaly, normal bowel sounds, no guard ing or rigidity. EXTREMITIES: No clubbing, no edema, no cyanosis, patient has bilateral gdfry-njs-rwwv amputations MUSCULOSKELETAL: Muscle strength and tone normal. SPINE: No scoliosis or deformity SKIN: No rashes, patient has a open area on right stump, covered with dressing CENTRAL NERVOUS SYSTEM: No focal deficits, tone is normal in all 4 extremities. PSYCHIATRIC: Alert and oriented -3. Appropriate affect. Intact judgment and insight. - Labs CBC & Chem 7: 12/03/18 05:18 12/07/18 05:47 Labs: Abnormal Lab Results - Last 24 Hours (Table) 12/07/18 Range/Units 05:47 Carbon Dioxide 35 H (22-30) mmol/L BUN 27 H (7-17) mg/dL Microbiology - Last 24 Hours (Table) 12/02/18 00:40 Stool Culture - Final Stool 12/02/18 18:35 Blood Culture - Preliminary Blood No Growth after 96 hours 12/05/18 07:15 Gram Stain - Preliminary Sputum Sputum Culture - Preliminary Assessment and Plan Assessment: Impression: #1 Acute exacerbation of combined systolic and diastolic congestive heart failure with recent admission for the same at an outside facility. Echocardiogram this admission reveals severely impaired left ventricular systolic function with ejection fraction 20-25%. Right ventricular systolic function is severely impaired as well. Severe mitral regurgitation. #2 Acute exacerbation of suspected chronic obstructive pulmonary disease, complicated by acute tracheobronchitis. #3 Chronic and ongoing tobacco dependence. #4 Bilateral jfsfd-kyd-sami amputee with small ulcerations being followed by infectious disease. #5 History of essential hypertension. #6 Peripheral vascular disease. #7 Poor overall functional performance based on the above-mentioned multiple comorbidities. Plan: The patient was seen and evaluated by Dr. Hughes. Chest x-ray and labs reviewed. We'll give a one-time IV Lasix 40 mg. Continue Augmentin. Continue bronchodilators. Titrate down the FiO2 as tolerated. She is educated regarding the importance of complete smoking cessation. NicoDerm patch is in place. The plan is to return to an extended care facility post discharge. I, the cosigning physician, performed a history & physical examination of the patient. Lungs sounds with crackles in the right posterior base. Maintaining good O2 saturations in the 90s on 2 L/m per nasal cannula. I discussed the assessment and plan of care with my nurse practitioner, Natividad Kruse. I attest to the above note as dictated by her.
[2018-12-07] MEDS ORDERED: FUROSEMIDE 10 MG/ML 4 ML VIAL IV STA (11:14)
[2018-12-07] MEDS: METOPROLOL TARTRATE 25 MG TAB PO SCH (20:33)
[2018-12-07] MEDS: LOSARTAN 25 MG TAB PO SCH (20:33)
--- NOTE | 2018-12-07 21:18 | P.PN ---
Progress Note - Text Progress Note Date: 12/07/18 nterval history: This is a pleasant 78-year-old patient who follows with Dr. Allen. Also follows with dementia program director Dr. Hawkins. Chronic stable medical conditions include hypertension, hyperlipidemia, GERD, peripheral artery disease, peripheral neuropathy, bilateral above-knee amputation. Patient was recently in the hospital patient does not remember which subsequent to that she had gone in for rehab to [facility] off [address].. Subsequent to that she's been home for 4 days. Patient now presents with cough which is rather congested. Not able to expectorate. Denies any FEVER and chills. Appetite has been lousy. Patient been having 3-4 bowel movements a day. Mushy. No abdominal pain. No fever no chills. Normally uses a wheelchair to get about. No blood in the stool. Patient has continued to smoke. Short of breath and wheezing. Admitted with CHF exacerbation, COPD exacerbation and pneumonia. Possibly ischemic hepatitis. Today-improved. Eating better. Tired. Looking to go to rehab. Social work informed me that her financial issues about her going back to rehab. Looking into the same. Review of systems: Was done for constitutional, cardiovascular, GI, pulmonary. relevant finding as above Active Medications Albuterol Sulfate (Ventolin Nebulized) 2.5 mg INHALATION RT-Q2H PRN PRN Reason: Shortness Of Breath Or Wheezing Last Admin: 12/04/18 05:17 Dose: 2.5 mg Documented by: Albuterol/Ipratropium (Duoneb 0.5 Mg-3 Mg/3 Ml Soln) 3 ml INHALATION RT-Q4H [facility] Last Admin: 12/07/18 16:47 Dose: 3 ml Documented by: Amoxicillin/Clavulanate Potassium (Augmentin 875-125) 1 each PO Q12HR [facility] Last Admin: 12/07/18 20:33 Dose: 1 each Documented by: Aspirin (Aspirin) 81 mg PO DAILY [facility] Last Admin: 12/07/18 09:59 Dose: 81 mg Documented by: Budesonide (Pulmicort) 1 mg INHALATION RT-BID [facility] Last Admin: 12/07/18 08:00 Dose: 1 mg Documented by: Clopidogrel Bisulfate (Plavix) 75 mg PO DAILY [facility] Last Admin: 12/07/18 09:59 Dose: 75 mg Documented by: Enoxaparin Sodium (Lovenox) 40 mg SQ DAILY [facility] Last Admin: 12/07/18 09:59 Dose: 40 mg Documented by: Escitalopram Oxalate (Lexapro) 10 mg PO DAILY [facility] Last Admin: 12/07/18 09:58 Dose: 10 mg Documented by: Fluconazole (Diflucan) 100 mg PO DAILY [facility] Last Admin: 12/07/18 09:59 Dose: 100 mg Documented by: Furosemide (Lasix) 60 mg PO BID@0900,1600 [facility] Last Admin: 12/07/18 17:52 Dose: 60 mg Documented by: Gabapentin (Neurontin) 600 mg PO TID [facility] Last Admin: 12/07/18 20:33 Dose: 600 mg Documented by: Guaifenesin (Mucinex) 1,200 mg PO Q12HR [facility] Last Admin: 12/07/18 20:33 Dose: 1,200 mg Documented by: Lidocaine HCl (Xylocaine Jelly 2%) 1 applic TOPICAL BID PRN PRN Reason: Mild Pain Last Admin: 12/06/18 01:01 Dose: 1 applic Documented by: Losartan Potassium (Cozaar) 25 mg PO [facility] Last Admin: 12/07/18 20:33 Dose: 25 mg Documented by: Metoprolol Tartrate (Lopressor) 50 mg PO DAILY [facility] Last Admin: 12/07/18 09:59 Dose: 50 mg Documented by: Metoprolol Tartrate (Lopressor) 25 mg PO HS [facility] Last Admin: 12/07/18 20:33 Dose: 25 mg Documented by: Miscellaneous Information (Potassium Per Protocol) 1 each MISCELLANE DAILY PRN; Protocol PRN Reason: Per Protocol Nicotine (Habitrol 21mg/24hr Patch) 1 patch TRANSDERM DAILY [facility] Last Admin: 12/07/18 09:59 Dose: 1 patch Documented by: Ondansetron HCl (Zofran) 4 mg IVP Q6HR PRN PRN Reason: Nausea And Vomiting Last Admin: 12/05/18 22:17 Dose: 4 mg Documented by: Potassium Chloride (K-Dur 20) 20 meq PO BID [facility] Last Admin: 12/07/18 20:33 Dose: 20 meq Documented by: Scopolamine (Transderm-Scop 1.5mg/72hr Patch) 1 patch TRANSDERM Q72H [facility] Last Admin: 12/05/18 22:17 Dose: 1 patch Documented by: Physical examination: VITAL SIGNS: 97.6, 97, 1 28 x 81, 99% on 2 L GENERAL: Propped up in bed, more comfortable EYES: Pupils equal. Conjunctiva pale. HEENT: External appearance of nose and ears normal, oral cavity grossly normal. NECK: JVD not raised; masses not palpable. HEART: First and second heart sounds are normal; no edema. LUNGS: Respiratory rate increased decreased breath sounds ABDOMEN: Soft, nontender, liver spleen not palpable, no masses palpable. PSYCH: Alert and oriented x3; mood and affect anxious Extremities: Bilateral above-knee amputation, wound on the right stump covered INVESTIGATIONS, reviewed in the clinical context: Potassium 4.2 Admission testing White count 15.7 hemoglobin 12.6 platelets 207 potassium 4.1 bun 28 creatinine 0.57 AST 62 ALT 11 2 repeat 132 and 187 Troponin I 0.032, 0.81, 0.57 Albumin 3.1 proBNP 22167 Procan calcitonin 0.9 UA positive for leukoesterase WBC EKG tracing personally reviewed by me shows-sinus rhythm left bundle branch block -Chest x-ray film personally reviewed by me-shows some cardiomegaly and diffuse infiltrate with possible chronic changes, the lateral film shows fluid in the oblique fissure 2-D echo-EF 20-25%, severe mitral regurgitation severe global hypokinesis Assessment: -Acute on chronic congestive heart failure exacerbation, systolic dysfunction EF 20-25 percent, now on by mouth Lasix -Possible pneumonia, suspect gram-negative organism, improved -Acute COPD exacerbation in a current smoker, improving -Severe mitral regurgitation, nonrheumatic -Chronic nicotine dependence patient cigarette smoker -Possible acute UTI from cystitis -Chronic bilateral above-knee amputation -Chronic right lower extremity stump wound -Zggh-xl-ggmingbv protein calorie malnutrition-as evidenced by low albumin, decreased muscle mass, loss of body fat, prominent bony eminence -Hepatitis possibly ischemic. Improving -Peripheral arterial disease -GERD -Hyperlipidemia -Severe hypokalemia from diuresis, corrected Plan: Spoke at length with the patient about a prognosis different issues. She started to get help from family to the care of the financial sufficient. Also spoke to the family service caseworker and social service manager. Patient can discontinue discharged to rehab when financial issues are sorted out. Discussed with Paras. Patient can be discharged to the ECF. We will add Aldactone.
[2018-12-08] MEDS: IPRATROPIUM-ALBUTEROL 3 ML NEB INHALATION SCH ×6 (00:35→20:08)
[2018-12-08 07:49] LABS: ALT 252 U/L (9-52); AST 68 U/L (14-36); African American GFR (CKD) >90 (>60 ml/min/1.73 sqM); Albumin 3.4 g/dL (3.5-5.0); Alkaline Phosphatase 154 U/L (38-126); Anion Gap 8 mmol/L; Blood Urea Nitrogen 29 mg/dL (7-17); Carbon Dioxide 29 mmol/L (22-30); Chloride 99 mmol/L (98-107); Glucose 79 mg/dL (74-99); Potassium 4.7 mmol/L (3.5-5.1); Sodium 136 mmol/L (137-145); Total Bilirubin 0.8 mg/dL (0.2-1.3); Total Protein 6.1 g/dL (6.3-8.2)
[2018-12-08] MEDS: BUDESONIDE 1 MG/2 ML NEBU INHALATION SCH ×2 (08:37→20:08)
[2018-12-08] MEDS: GABAPENTIN 300 MG CAP PO SCH ×3 (09:31→20:18)
[2018-12-08] MEDS: POTASSIUM CHLORIDE ER 20 MEQ TAB.ER PO SCH ×2 (09:31→20:18)
[2018-12-08] MEDS: NICOTINE 21MG/24HR PATCH TRANSDERM SCH (09:31)
[2018-12-08] MEDS: AMOXIC-POT CLAV 875-125MG 1 EACH TAB PO SCH ×2 (09:31→20:18)
[2018-12-08] MEDS: ASPIRIN 81 MG PO SCH (09:31)
[2018-12-08] MEDS: FLUCONAZOLE 100 MG TAB PO SCH (09:31)
[2018-12-08] MEDS: FUROSEMIDE 20 MG TAB PO SCH ×2 (09:31→17:55)
[2018-12-08] MEDS: guaiFENesin 600 MG TABLET.ER PO SCH ×2 (09:31→20:17)
[2018-12-08] MEDS: ESCITALOPRAM 10 MG TAB PO SCH (09:31)
[2018-12-08] MEDS: CLOPIDOGREL 75 MG TAB PO SCH (09:31)
[2018-12-08] MEDS: SPIRONOLACTONE 25 MG TAB PO SCH (09:31)
[2018-12-08] MEDS: METOPROLOL TARTRATE 50 MG TAB PO SCH (09:31)
[2018-12-08] MEDS: ENOXAPARIN 40 MG/0.4 ML SYRINGE SQ SCH (09:32)
--- NOTE | 2018-12-08 14:58 | P.PN ---
Subjective Progress Note Date: 12/08/18 Principal diagnosis: Acute exacerbation of systolic congestive heart failure, acute exacerbation of COPD with purulent tracheobronchitis This is a very pleasant 78-year-old female patient who follows with Dr. De León as her primary care physician. She has a history of bilateral pvxlg-mqs-vrbd amputation with history of chronic ulcers of the stump as well as ulcers of the back, hypertension, peripheral vascular disease, polyneuropathy, chronic and ongoing tobacco dependence with suspected chronic obstructive pulmonary disease. She was recently admitted to [facility] for an acute exacerbation of mixed chronic systolic and diastolic congestive heart failure treated with IV diuretics and she was discharged to a subacute rehabilitation and eventually back to home. She lives alone. She transfers from bed to wheelchair and a transfer board. She is brought here to the emergency room yesterday with increasing shortness of breath cough and congestion. Chest x-ray revealed some interstitial edema right greater than left with some interstitial fibrotic changes. She is seen today in consultation on the selective care unit. She is currently resting in bed. Awake and alert in no acute distress. She is breathing a bit easier today as compared to yesterday. Maintaining O2 saturations in the upper 90s on 2 L/m per nasal cannula. She's afebrile. Stool and urine cultures are pending. White count 8.9. Hemoglobin 12.5. Creatinine 0.64. Troponin 0.329, 0.815, 0.572. ProBNP 36,200. Pro-Calcitonin 0.90. She's been initiated on albuterol updraft treatments, IV diuretics, vancomycin. Cefepime and azithromycin discontinued. Reevaluated today on 12/04/2018, patient is feeling better, breathing easier, denies any cough no wheezing, no shortness of breath.she was seen by cardiology, and she was felt to have acute on chronic systolic Congestive heart failure, the recommendation was to increase the Lasix to 40 mg IV push twice a day, placed on losartan, lisinopril is presently on hold, and metoprolol was increased to 25 mg twice a day. Patient seems to be clinically responding to the treatment.labs showed low potassium of 3.4 BUN is 41 and creatinine 0.77. Liver enzymes seem to be on the rise.being addressed by the admitting physician. On 12/05/2018 patient seen in follow-up on selective care unit, she is awake and alert, in no acute distress, on 2 L of oxygen her pulse ox is 96%, afebrile, hemodynamically stable, lung sounds reveal coarse crackles over right lower lobe, and scattered rhonchi throughout, no cough, so far stool, blood urine and sputum cultures are negative, patient is on Zosyn, and Diflucan, in addition to oral Lasix 60 mg twice daily. Today's chest x-ray shows improving and nearly resolved interstitial edema, and trace right pleural effusion and probable multifocal subsegmental atelectasis. Labs revealed potassium of 2.6, and patient's serum potassium is being supplemented. In addition patient has been nauseous, she had a few episodes of vomiting, we'll supplement with IV potassium chloride. Today's PT was elevated at 84,900. The patient is seen today 12/06/2017 in follow-up on the selective care unit. She is currently resting comfortably in bed. Awake and alert in no acute distre ss. Breathing a bit easier today as compared to yesterday. Maintaining O2 saturations up to 100% on 2 L/m per nasal cannula. She's afebrile. Blood and urine cultures reveal no growth. Sputum culture pending. Sodium 142. Potassium 2.7. Bicarb 33. Creatinine 0.76. AST 134. ALT 374. Alk phos 218. She is continued on DuoNeb inhalations, Pulmicort inhalations, antibiotics in the form of Zosyn. NicoDerm patch is in place. On Lasix 60 mg twice a day. Lovenox for PE prophylaxis. The patient is seen today 12/07/2018 in follow-up on the selective care unit. She is awake and alert in no acute distress. Breathing easier today as compared to yesterday. Chest x-ray shows increasing right basilar airspace disease, suspect pneumonia with a new trace parapneumonic effusion as well as continued fluid volume overload. Maintaining O2 saturations in the high 90s on 2 L/m per nasal cannula. She's afebrile. Hemodynamically stable. Blood culture reveals no growth. Urine culture reveals no growth. Sputum culture pending. Sodium 144. Potassium 4.2. Creatinine 0.76. She is currently on DuoNeb inhalations, Pulmicort inhalations, antibiotics in the form of Augmentin. The patient is seen today 12/08/2018 in follow-up on the selective care unit. She is currently resting comfortably in bed. Awake alert no acute distress. Denies any worsening shortness of breath, cough or congestion. Sodium 136. Potassium 4.7. Creatinine 0.69. AST 68. ALT 252. She remains on Augmentin, bronchodilators. Objective - Vital Signs Vital signs: Vital Signs Temp 96.7 F L 12/08/18 08:00 Pulse 74 12/08/18 12:42 Resp 18 12/08/18 03:30 BP 122/66 12/08/18 12:00 Pulse Ox 98 12/08/18 12:00 Intake & Output 12/07/18 12/08/18 12/08/18 18:59 06:59 18:59 Intake Total 720 240 Output Total 600 500 650 Balance 120 -500 -410 Weight 42 kg Intake: Oral 720 240 Output: Urine 600 500 650 Other: Voiding Method Diaper - Exam GENERAL EXAM: Alert, pleasant, 78-year-old thin frail female patient, on 2 L of oxygen, no acute distress. HEAD: Normocephalic/atraumatic. EYES: Normal reaction of pupils, equal size. Conjunctiva pink, sclera white. NOSE: Clear with pink turbinates. THROAT: No erythema or exudates. NECK: No masses, no JVD, no thyroid enlargement, no adenopathy. CHEST: No chest wall deformity. Symmetrical expansion. LUNGS: Equal air entry with coarse crackles at the right lower base. CVS: Regular rate and rhythm, normal S1 and S2, no gallops, no murmurs, no rubs ABDOMEN: Soft, nontender. No hepatosplenomegaly, normal bowel sounds, no guarding or rigidity. EXTREMITIES: No clubbing, no edema, no cyanosis, patient has bilateral nprwa-fvn-zzha amputations MUSCULOSKELETAL: Muscle strength and tone normal. SPINE: No scoliosis or deformity SKIN: No rashes, patient has a open area on right stump, covered with dressing CENTRAL NERVOUS SYSTEM: No focal deficits, tone is normal in all 4 extremities. PSYCHIATRIC: Alert and oriented -3. Appropriate affect. Intact judgment and insight. - Labs CBC & Chem 7: 12/03/18 05:18 12/08/18 07:03 Labs: Abnormal Lab Results - Last 24 Hours (Table) 12/08/18 Range/Units 07:03 Sodium 136 L (137-145) mmol/L BUN 29 H (7-17) mg/dL AST 68 H (14-36) U/L ALT 252 H (9-52) U/L Alkaline Phosphatase 154 H (38-126) U/L Total Protein 6.1 L (6.3-8.2) g/dL Albumin 3.4 L (3.5-5.0) g/dL Microbiology - Last 24 Hours (Table) 12/02/18 18:35 Blood Culture - Preliminary Blood No Growth after 120 hours 12/05/18 07:15 Gram Stain - Final Sputum Sputum Culture - Final Tracie albicans Assessment and Plan Assessment: Impression: #1 Acute exacerbation of combined systolic and diastolic congestive heart failure with recent admission for the same at an outside facility. Echocardiogram this admission reveals severely impaired left ventricular systolic function with ejection fraction 20-25%. Right ventricular systolic function is severely impaired as well. Severe mitral regurgitation. #2 Acute exacerbation of suspected chronic obstructive pulmonary disease, complicated by acute tracheobronchitis. #3 Chronic and ongoing tobacco dependence. #4 Bilateral bcpqi-jmi-hhlw amputee with small ulcerations being followed by infectious disease. #5 History of essential hypertension. #6 Peripheral vascular disease. #7 Poor overall functional performance based on the above-mentioned multiple comorbidities. Plan: The patient was seen and evaluated by Dr. Hughes. Continue Augmentin. Continue bronchodilators. She is educated regarding the importance of complete smoking cessation. NicoDerm patch is in place. The plan is to return to an extended care facility post discharge. I, the cosigning physician, performed a history & physical examination of the patient. Lungs sounds with crackles in the right posterior base. Maintaining good O2 saturations in the 90s on 2 L/m per nasal cannula. I discussed the assessment and plan of care with my nurse practitioner, Natividad Kruse. I attest to the above note as dictated by her.
[2018-12-08] MEDS: SCOPOLAMINE 1.5MG/72HR PATCH TRANSDERM SCH (20:17)
[2018-12-08] MEDS: LOSARTAN 25 MG TAB PO SCH (20:18)
[2018-12-08] MEDS: METOPROLOL TARTRATE 25 MG TAB PO SCH (20:18)
--- NOTE | 2018-12-08 22:34 | P.PN ---
Progress Note - Text Progress Note Date: 12/08/18 Interval history: This is a pleasant 78-year-old patient who follows with Dr. Allen. 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 Chronic stable medical conditions include hypertension, hyperlipidemia, GERD, peripheral artery disease, peripheral neuropathy, bilateral above-knee amputation. Patient was recently in the hospital patient does not remember which subsequent to that she had gone in for rehab to [facility] off [address].. Subsequent to that she's been home for 4 days. Patient now presents with cough which is rather congested. Not able to expectorate. Denies any FEVER and chills. Appetite has been lousy. Patient been having 3-4 bowel movements a day. Mushy. No abdominal pain. No fever no chills. Normally uses a wheelchair to get about. No blood in the stool. Patient has continued to smoke. Short of breath and wheezing. Admitted with CHF exacerbation, COPD exacerbation and pneumonia. Possibly ischemic hepatitis. Today-breathing better. Sitting up. Eating better. No new issues. Review of systems: Was done for constitutional, cardiovascular, GI, pulmonary. relevant finding as above Active Medications Albuterol Sulfate (Ventolin Nebulized) 2.5 mg INHALATION RT-Q2H PRN PRN Reason: Shortness Of Breath Or Wheezing Last Admin: 12/04/18 05:17 Dose: 2.5 mg Documented by: Albuterol/Ipratropium (Duoneb 0.5 Mg-3 Mg/3 Ml Soln) 3 ml INHALATION RT-Q4H [facility] Last Admin: 12/08/18 20:08 Dose: 3 ml Documented by: Amoxicillin/Clavulanate Potassium (Augmentin 875-125) 1 each PO Q12HR [facility] Last Admin: 12/08/18 20:18 Dose: 1 each Documented by: Aspirin (Aspirin) 81 mg PO DAILY [facility] Last Admin: 12/08/18 09:31 Dose: 81 mg Documented by: Budesonide (Pulmicort) 1 mg INHALATION RT-BID [facility] Last Admin: 12/08/18 20:08 Dose: 1 mg Documented by: Clopidogrel Bisulfate (Plavix) 75 mg PO DAILY [facility] Last Admin: 12/08/18 09:31 Dose: 75 mg Documented by: Enoxaparin Sodium (Lovenox) 40 mg SQ DAILY [facility] Last Admin: 12/08/18 09:32 Dose: 40 mg Documented by: Escitalopram Oxalate (Lexapro) 10 mg PO DAILY [facility] Last Admin: 12/08/18 09:31 Dose: 10 mg Documented by: Fluconazole (Diflucan) 100 mg PO DAILY [facility] Last Admin: 12/08/18 09:31 Dose: 100 mg Documented by: Furosemide (Lasix) 60 mg PO BID@0900,1600 [facility] Last Admin: 12/08/18 17:55 Dose: 60 mg Documented by: Gabapentin (Neurontin) 600 mg PO TID [facility] Last Admin: 12/08/18 20:18 Dose: 600 mg Documented by: Guaifenesin (Mucinex) 1,200 mg PO Q12HR [facility] Last Admin: 12/08/18 20:17 Dose: 1,200 mg Documented by: Lidocaine HCl (Xylocaine Jelly 2%) 1 applic TOPICAL BID PRN PRN Reason: Mild Pain Last Admin: 12/06/18 01:01 Dose: 1 applic Documented by: Losartan Potassium (Cozaar) 25 mg PO HS [facility] Last Admin: 12/08/18 20:18 Dose: 25 mg Documented by: Metoprolol Tartrate (Lopressor) 50 mg PO DAILY [facility] Last Admin: 12/08/18 09:31 Dose: 50 mg Documented by: Metoprolol Tartrate (Lopressor) 25 mg PO HS [facility] Last Admin: 12/08/18 20:18 Dose: 25 mg Documented by: Miscellaneous Information (Potassium Per Protocol) 1 each MISCELLANE DAILY PRN; Protocol PRN Reason: Per Protocol Nicotine (Habitrol 21mg/24hr Patch) 1 patch TRANSDERM DAILY [facility] Last Admin: 12/08/18 09:31 Dose: 1 patch Documented by: Ondansetron HCl (Zofran) 4 mg IVP Q6HR PRN PRN Reason: Nausea And Vomiting Last Admin: 12/05/18 22:17 Dose: 4 mg Documented by: Potassium Chloride (K-Dur 20) 20 meq PO BID [facility] Last Admin: 12/08/18 20:18 Dose: 20 meq Documented by: Scopolamine (Transderm-Scop 1.5mg/72hr Patch) 1 patch TRANSDERM Q72H [facility] Last Admin: 12/08/18 20:17 Dose: 1 patch Documented by: Spironolactone (Aldactone) 25 mg PO DAILY [facility] Last Admin: 12/08/18 09:31 Dose: 25 mg Documented by: Physical examination: VITAL SIGNS: 96.7, 84, 137 was 65, 100% on 2 L GENERAL: Sitting on bed, breathing better EYES: Pupils equal. Conjunctiva pale. HEENT: External appearance of nose and ears normal, oral cavity grossly normal. NECK: JVD not raised; masses not palpable. HEART: First and second heart sounds are normal; no edema. LUNGS: Respiratory rate increased decreased breath sounds ABDOMEN: Soft, nontender, liver spleen not palpable, no masses palpable. PSYCH: Alert and oriented x3; mood and affect anxious Extremities: Bilateral above-knee amputation, wound on the right stump covered INVESTIGATIONS, reviewed in the clinical context: Potassium 4.7 AST 68 ALT 252 Admission testing White count 15.7 hemoglobin 12.6 platelets 207 potassium 4.1 bun 28 creatinine 0.57 AST 62 ALT 11 2 repeat 132 and 187 Troponin I 0.032, 0.81, 0.57 Albumin 3.1 proBNP 67008 Procan calcitonin 0.9 UA positive for leukoesterase WBC EKG tracing personally reviewed by me shows-sinus rhythm left bundle branch block -Chest x-ray film personally reviewed by me-shows some cardiomegaly and diffuse infiltrate with possible chronic changes, the lateral film shows fluid in the oblique fissure 2-D echo-EF 20-25%, severe mitral regurgitation severe global hypokinesis Assessment: -Acute on chronic congestive heart failure exacerbation, systolic dysfunction EF 20-25 percent, now on by mouth Lasix -Possible pneumonia, suspect gram-negative organism, improved -Acute COPD exacerbation in a current smoker, improving -Severe mitral regurgitation, nonrheumatic -Chronic nicotine dependence patient cigarette smoker -Possible acute UTI from cystitis -Chronic bilateral above-knee amputation -Chronic right lower extremity stump wound -Wvcy-gy-vzsugtqr protein calorie malnutrition-as evidenced by low albumin, decreased muscle mass, loss of body fat, prominent bony eminence -Hepatitis possibly ischemic. Improving -Peripheral arterial disease -GERD -Hyperlipidemia -Severe hypokalemia from diuresis, corrected Plan: Breathing better. Spoke to Paras from social service manager. Pending financial issues determining discharged to [facility].
[2018-12-09] MEDS: IPRATROPIUM-ALBUTEROL 3 ML NEB INHALATION SCH ×4 (00:02→11:51)
[2018-12-09] MEDS: BUDESONIDE 1 MG/2 ML NEBU INHALATION SCH (08:17)
[2018-12-09 08:28] VITALS: TEMP 97.5
[2018-12-09] MEDS: NICOTINE 21MG/24HR PATCH TRANSDERM SCH (09:58)
[2018-12-09] MEDS: ONDANSETRON 4 MG/2 ML VIAL IVP PRN (10:02)
[2018-12-09] MEDS: ENOXAPARIN 40 MG/0.4 ML SYRINGE SQ SCH (10:03)
[2018-12-09] MEDS: ESCITALOPRAM 10 MG TAB PO SCH (10:52)
[2018-12-09] MEDS: ASPIRIN 81 MG PO SCH (10:52)
[2018-12-09] MEDS: FLUCONAZOLE 100 MG TAB PO SCH (10:52)
[2018-12-09] MEDS: CLOPIDOGREL 75 MG TAB PO SCH (10:52)
[2018-12-09] MEDS: AMOXIC-POT CLAV 875-125MG 1 EACH TAB PO SCH (10:52)
[2018-12-09] MEDS: GABAPENTIN 300 MG CAP PO SCH (10:53)
[2018-12-09] MEDS: FUROSEMIDE 20 MG TAB PO SCH (10:53)
[2018-12-09] MEDS: guaiFENesin 600 MG TABLET.ER PO SCH (10:53)
[2018-12-09] MEDS: METOPROLOL TARTRATE 50 MG TAB PO SCH (10:53)
[2018-12-09] MEDS: SPIRONOLACTONE 25 MG TAB PO SCH (10:53)
[2018-12-09] MEDS: POTASSIUM CHLORIDE ER 20 MEQ TAB.ER PO SCH (10:53)
[2018-12-09 12:06] VITALS: BP 136/84; PULSE 88; RESP 18
--- NOTE | 2018-12-09 12:08 | CDI ---
Documentation Clarification Form Date: 12/09/2018 11:52:05 AM From: Michelle JATINDER Pruett, CCDS Admit Date: 12/02/2018 6:45:00 PM Patient Name: Charlette Urena Visit Number: [id number] Discharge Date: ATTENTION: The Clinical Documentation Specialists (CDI) and [facility] Coding Staff appreciate your assistance in clarifying documentation. Please respond to the clarification below the line at the bottom and electronically sign. The CDI & [facility] Coding staff will review the response and follow-up if needed. Please note: Queries are made part of the Legal Health Record. If you have any questions, please contact the author of this message via ITS. Dr. Greg Day: Conflicting documentation has been found in the medical record: Per the pulmonary consult & progress note on 12/08: "Acute exacerbation of combined systolic and diastolic congestive heart failure with recent admission for the same at an outside facility." Per the cardiology consult & subsequent progress notes: "Acute on chronic systolic congestive heart failure". Per the attending progress note: "Acute on chronic congestive heart failure exacerbation, systolic dysfunction EF 20-25 percent, now on by mouth Lasix." History/Risk Factors: Hypertension, Hyperlipidemia, PVD, Peripheral neuropathy, Bilateral AKA, PAD, Long history of smoking. Clinical Indicators: Presented with cough & congestion, poor appetite, SOB & wheezing. Diagnosed with acute on chronic CHF exacerbation with unknown EF until ECHO was done & acute exacerbation COPD. ECHO: Left ventricular systolic function severely impaired with EF between 20- 25%, severe MR, Mild TR, mild pulmonary hypertension. VS: BP 90/67*, PO 91 2Lnc LAB: BNP 36,200 Treatment: INH Albuterol, IV Azithromycin, IV Cefepime, IV Solumedrol, IV Vancomycin, IV fluid bolus, IV Lasix, O2 2Lnc In your opinion as the attending physician, what is the most clinically appropriate diagnosis for this patient? Acute systolic congestive heart failure Acute on chronic systolic congestive heart failure Acute diastolic congestive heart failure Acute on chronic diastolic congestive heart failure Combined acute systolic & diastolic congestive heart failure Combined acute on chronic systolic & diastolic congestive heart failure. (Last Revision: May 2017) MTDD
--- NOTE | 2018-12-09 13:18 | P.DS ---
Providers Date of admission: 12/02/18 18:45 Expected date of discharge: 12/09/18 Attending physician: Greg Day Consults: 12/02/18 18:47 Consult Physician Urgent Consulting Provider: [facility] Consult Reason/Comments: elevated troponin Do you want consulting provider notified?: Yes 12/02/18 18:48 Consult Physician Urgent Consulting Provider: Yanique Kearns Consult Reason/Comments: COPD, pneumonia Do you want consulting provider notified?: Yes Primary care physician: Juan Miguel Orr [facility] Course: Interval history: This is a pleasant 78-year-old patient who follows with Dr. Allen. Also follows with psychologist engineering Dr. Hawkins. Chronic stable medical conditions include hypertension, hyperlipidemia, GERD, peripheral artery disease, peripheral neuropathy, bilateral above-knee amputation. Patient was recently in the hospital patient does not remember which subsequent to that she had gone in for rehab [facility] [address] Subsequent to that she's been home for 4 days. Patient now presents with cough which is rather congested. Not able to expectorate. Denies any FEVER and chills. Appetite has been lousy. Patient been having 3-4 bowel movements a day. Mushy. No abdominal pain. No fever no chills. Normally uses a wheelchair to get about. No blood in the stool. Patient has continued to smoke. Short of breath and wheezing. Admitted with CHF exacerbation, COPD exacerbation and pneumonia. Possibly ischemic hepatitis. Treated with antibiotics, IV Lasix, steroids and never has bronchodilators. Doing much better by the time of discharge. Advise repeatedly about smoking cessation. Not tolerating a diet. Consultation: Dr. Ordaz at all from pulmonary Dr. RADHA humphries et minoo. from cardiology Physical examination: VITAL SIGNS: 97.5, 74, 16, 11 5/64, 97% on 2 L L GENERAL: Sitting on bed, more comfortable EYES: Pupils equal. Conjunctiva pale. HEENT: External appearance of nose and ears normal, oral cavity grossly normal. NECK: JVD not raised; masses not palpable. HEART: First and second heart sounds are normal; no edema. LUNGS: Respiratory rate increased decreased breath sounds ABDOMEN: Soft, nontender, liver spleen not palpable, no masses palpable. PSYCH: Alert and oriented x3; mood and affect anxious Extremities: Bilateral above-knee amputation, wound on the right stump covered INVESTIGATIONS, reviewed in the clinical context: Potassium 4.7 AST 68 ALT 252 Admission testing White count 15.7 hemoglobin 12.6 platelets 207 potassium 4.1 bun 28 creatinine 0.57 AST 62 ALT 11 2 repeat 132 and 187 Troponin I 0.032, 0.81, 0.57 Albumin 3.1 proBNP 35643 Procan calcitonin 0.9 UA positive for leukoesterase WBC EKG tracing personally reviewed by me shows-sinus rhythm left bundle branch block -Chest x-ray film personally reviewed by me-shows some cardiomegaly and diffuse infiltrate with possible chronic changes, the lateral film shows fluid in the oblique fissure 2-D echo-EF 20-25%, severe mitral regurgitation severe global hypokinesis Discharge diagnosis: -Acute on chronic congestive heart failure exacerbation, systolic dysfunction EF 20-25 percent, -Possible pneumonia, suspect gram-negative organism, improved -Acute COPD exacerbation in a current smoker, improving -Severe mitral regurgitation, nonrheumatic -Chronic nicotine dependence patient cigarette smoker -Possible acute UTI from cystitis -Chronic bilateral above-knee amputation -Chronic right lower extremity stump wound -Lkgd-xk-[id number] protein calorie malnutrition-as evidenced by low albumin, decreased muscle mass, loss of body fat, prominent bony eminence -Hepatitis possibly ischemic. Improving -Peripheral arterial disease -GERD -Hyperlipidemia -Severe hypokalemia from diuresis, corrected CODE STATUS DO NOT RESUSCITATE Disposition: [facility]. Patient Condition at Discharge: Stable Plan - Discharge Summary Discharge Rx Participant: No New Discharge Prescriptions: New Spironolactone [Aldactone] 25 mg PO DAILY tab Amoxic-Pot Clav 875-125Mg [Augmentin 875-125] 1 each PO Q12HR #6 tab Losartan [Cozaar] 25 mg PO HS tab Fluconazole [Diflucan] 100 mg PO DAILY #5 tab Nicotine 21Mg/24Hr Patch [Habitrol] 1 patch TRANSDERM DAILY #14 patch predniSONE 10 mg PO DAILY #30 tab Continue Potassium Chloride ER [K-Dur 20] 20 meq PO DAILY Omeprazole [PriLOSEC] 20 mg PO DAILY Nitroglycerin Sl Tabs [Nitrostat] 0.4 mg PO Q5M PRN PRN Reason: Chest Pain Ipratropium-Albuterol Nebulize [Duoneb 0.5 mg-3 mg/3 ml Soln] 3 ml INHALATION RT-QID Furosemide [Lasix] 40 mg PO BID Ferrous Sulfate [Iron (65 MG Elemental)] 325 mg PO DAILY Escitalopram Oxalate [Lexapro] 10 mg PO DAILY Clopidogrel Bisulfate [Plavix] 75 mg PO DAILY Atorvastatin [Lipitor] 40 mg PO DAILY Aspirin EC [Ecotrin Low Dose] 81 mg PO DAILY Fluticasone/Salmeterol [Advair 250-50 Diskus] 1 puff INHALATION RT-BID Gabapentin 600 mg PO TID #9 tab ALPRAZolam [Xanax] 0.5 mg PO BID PRN #6 tab PRN Reason: Anxiety Changed Metoprolol Tartrate [Lopressor] 25 mg PO TID #0 Discontinued predniSONE 40 mg PO DAILY Lisinopril [Zestril] 2.5 mg PO DAILY Albuterol Nebulized [Ventolin Nebulized] 2.5 mg INHALATION RT-Q8H Discharge Medication List Aspirin EC [Ecotrin Low Dose] 81 mg PO DAILY 12/02/18 [History] Atorvastatin [Lipitor] 40 mg PO DAILY 12/02/18 [History] Clopidogrel Bisulfate [Plavix] 75 mg PO DAILY 12/02/18 [History] Escitalopram Oxalate [Lexapro] 10 mg PO DAILY 12/02/18 [History] Ferrous Sulfate [Iron (65 MG Elemental)] 325 mg PO DAILY 12/02/18 [History] Fluticasone/Salmeterol [Advair 250-50 Diskus] 1 puff INHALATION RT-BID 12/02/18 [History] Furosemide [Lasix] 40 mg PO BID 12/02/18 [History] Ipratropium-Albuterol Nebulize [Duoneb 0.5 mg-3 mg/3 ml Soln] 3 ml INHALATION RT-QID 12/02/18 [History] Nitroglycerin Sl Tabs [Nitrostat] 0.4 mg PO Q5M PRN 12/02/18 [History] Omeprazole [PriLOSEC] 20 mg PO DAILY 12/02/18 [History] Potassium Chloride ER [K-Dur 20] 20 meq PO DAILY 12/02/18 [History] ALPRAZolam [Xanax] 0.5 mg PO BID PRN #6 tab 12/09/18 [Rx] Amoxic-Pot Clav 875-125Mg [Augmentin 875-125] 1 each PO Q12HR #6 tab 12/09/18 [Rx] Fluconazole [Diflucan] 100 mg PO DAILY #5 tab 12/09/18 [Rx] Gabapentin 600 mg PO TID #9 tab 12/09/18 [Rx] Losartan [Cozaar] 25 mg PO HS tab 12/09/18 [Rx] Metoprolol Tartrate [Lopressor] 25 mg PO TID #0 12/09/18 [Rx] Nicotine 21Mg/24Hr Patch [Habitrol] 1 patch TRANSDERM DAILY #14 patch 12/09/18 [Rx] Spironolactone [Aldactone] 25 mg PO DAILY tab 12/09/18 [Rx] predniSONE 10 mg PO DAILY #30 tab 12/09/18 [Rx] Follow up Appointment(s)/Referral(s): Do Boggs MD [STAFF PHYSICIAN] - 1 Week Juan Miguel Orr MD [Primary Care Provider] - As Needed Vern Rodriguez MD [STAFF PHYSICIAN] - 12/10/18
--- NOTE | 2018-12-09 15:15 | P.PN ---
Subjective Progress Note Date: 12/09/18 Principal diagnosis: Acute exacerbation of systolic congestive heart failure, acute exacerbation of COPD with purulent tracheobronchitis This is a very pleasant 78-year-old female patient who follows with Dr. De León as her primary care physician. She has a history of bilateral [id number] amputation with history of chronic ulcers of the stump as well as ulcers of the back, hypertension, peripheral vascular disease, polyneuropathy, chronic and ongoing tobacco dependence with suspected chronic obstructive pulmonary disease. She was recently admitted to [facility] for an acute exacerbation of mixed chronic systolic and diastolic congestive heart failure treated with IV diuretics and she was discharged to a subacute rehabilitation and eventually back to home. She lives alone. She transfers from bed to wheelchair and a transfer board. She is brought here to the emergency room yesterday with increasing shortness of breath cough and congestion. Chest x-ray revealed some interstitial edema right greater than left with some interstitial fibrotic changes. She is seen today in consultation on the selective care unit. She is currently resting in bed. Awake and alert in no acute distress. She is breathing a bit easier today as compared to yesterday. Maintaining O2 saturations in the upper 90s on 2 L/m per nasal cannula. She's afebrile. Stool and urine cultures are pending. White count 8.9. Hemoglobin 12.5. Creatinine 0.64. Troponin 0.329, 0.815, 0.572. ProBNP 36,200. Pro-Calcitonin 0.90. She's been initiated on albuterol updraft treatments, IV diuretics, vancomycin. Cefepime and azithromycin discontinued. Reevaluated today on 12/04/2018, patient is feeling better, breathing easier, denies any cough no wheezing, no shortness of breath.she was seen by cardiology, and she was felt to have acute on chronic systolic Congestive heart failure, the recommendation was to increase the Lasix to 40 mg IV push twice a day, placed on losartan, lisinopril is presently on hold, and metoprolol was increased to 25 mg twice a day. Patient seems to be clinically responding to the treatment.labs showed low potassium of 3.4 BUN is 41 and creatinine 0.77. Liver enzymes seem to be on the rise.being addressed by the admitting physician. On 12/05/2018 patient seen in follow-up on selective care unit, she is awake and alert, in no acute distress, on 2 L of oxygen her pulse ox is 96%, afebrile, hemodynamically stable, lung sounds reveal coarse crackles over right lower lobe, and scattered rhonchi throughout, no cough, so far stool, blood urine and sputum cultures are negative, patient is on Zosyn, and Diflucan, in addition to oral Lasix 60 mg twice daily. Today's chest x-ray shows improving and nearly resolved interstitial edema, and trace right pleural effusion and probable multifocal subsegmental atelectasis. Labs revealed potassium of 2.6, and patient's serum potassium is being supplemented. In addition patient has been nauseous, she had a few episodes of vomiting, we'll supplement with IV potassium chloride. Today's PT was elevated at 84,900. The patient is seen today 12/06/2017 in follow-up on the selective care unit. She is currently resting comfortably in bed. Awake and alert in no acute distre ss. Breathing a bit easier today as compared to yesterday. Maintaining O2 saturations up to 100% on 2 L/m per nasal cannula. She's afebrile. Blood and urine cultures reveal no growth. Sputum culture pending. Sodium 142. Potassium 2.7. Bicarb 33. Creatinine 0.76. AST 134. ALT 374. Alk phos 218. She is continued on DuoNeb inhalations, Pulmicort inhalations, antibiotics in the form of Zosyn. NicoDerm patch is in place. On Lasix 60 mg twice a day. Lovenox for PE prophylaxis. The patient is seen today 12/07/2018 in follow-up on the selective care unit. She is awake and alert in no acute distress. Breathing easier today as compared to yesterday. Chest x-ray shows increasing right basilar airspace disease, suspect pneumonia with a new trace parapneumonic effusion as well as continued fluid volume overload. Maintaining O2 saturations in the high 90s on 2 L/m per nasal cannula. She's afebrile. Hemodynamically stable. Blood culture reveals no growth. Urine culture reveals no growth. Sputum culture pending. Sodium 144. Potassium 4.2. Creatinine 0.76. She is currently on DuoNeb inhalations, Pulmicort inhalations, antibiotics in the form of Augmentin. The patient is seen today 12/08/2018 in follow-up on the selective care unit. She is currently resting comfortably in bed. Awake alert no acute distress. Denies any worsening shortness of breath, cough or congestion. Sodium 136. Potassium 4.7. Creatinine 0.69. AST 68. ALT 252. She remains on Augmentin, bronchodilators. The patient is seen today 12/09/2018 in follow-up on the selective care unit. She remains awake and alert in no acute distress. Resting comfortably in bed. No worsening shortness of breath, cough or congestion. She is maintaining good O2 saturations in the mid 90s on 2 L/m per nasal cannula. She's afebrile. Hemodynamically stable. Objective - Vital Signs Vital signs: Vital Signs Temp 97.5 F L 12/09/18 08:00 Pulse 88 12/09/18 12:00 Resp 18 12/09/18 12:00 BP 136/84 12/09/18 12:00 Pulse Ox 96 12/09/18 12:00 Intake & Output 12/08/18 12/09/18 12/09/18 18:59 06:59 18:59 Intake Total 440 240 Output Total 650 1000 20 Balance -210 -1000 220 Intake: Oral 440 240 Output: Urine 650 1000 Emesis 20 Other: Voiding Method Diaper # Voids 1 - Exam GENERAL EXAM: Alert, pleasant, 78-year-old thin frail female patient, on 2 L of oxygen, no acute distress. HEAD: Normocephalic/atraumatic. EYES: Normal reaction of pupils, equal size. Conjunctiva pink, sclera white. NOSE: Clear with pink turbinates. THROAT: No erythema or exudates. NECK: No masses, no JVD, no thyroid enlargement, no adenopathy. CHEST: No chest wall deformity. Symmetrical expansion. LUNGS: Equal air entry with coarse crackles at the right lower base. CVS: Regular rate and rhythm, normal S1 and S2, no gallops, no murmurs, no rubs ABDOMEN: Soft, nontender. No hepatosplenomegaly, normal bowel sounds, no guarding or rigidity. EXTREMITIES: No clubbing, no edema, no cyanosis, patient has bilateral [id number] amputations MUSCULOSKELETAL: Muscle strength and tone normal. SPINE: No scoliosis or deformity SKIN: No rashes, patient has a open area on right stump, covered with dressing CENTRAL NERVOUS SYSTEM: No focal deficits, tone is normal in all 4 extremities. PSYCHIATRIC: Alert and oriented -3. Appropriate affect. Intact judgment and insight. - Labs CBC & Chem 7: 12/03/18 05:18 12/08/18 07:03 Labs: Microbiology - Last 24 Hours (Table) 12/02/18 18:35 Blood Culture - Final Blood No Growth after 144 hours Assessment and Plan Assessment: Impression: #1 Acute exacerbation of combined systolic and diastolic congestive heart failure with recent admission for the same at an outside facility. E chocardiogram this admission reveals severely impaired left ventricular systolic function with ejection fraction 20-25%. Right ventricular systolic function is severely impaired as well. Severe mitral regurgitation. #2 Acute exacerbation of suspected chronic obstructive pulmonary disease, complicated by acute tracheobronchitis. #3 Chronic and ongoing tobacco dependence. #4 Bilateral [id number] amputee with small ulcerations being followed by infectious disease. #5 History of essential hypertension. #6 Peripheral vascular disease. #7 Poor overall functional performance based on the above-mentioned multiple comorbidities. Plan: The patient was seen and evaluated by Dr. Hughes. She is stable from the pulmonary standpoint. The plan is to return to an extended care facility post d ischarge. I, the cosigning physician, performed a history & physical examination of the patient. Lungs sounds with crackles in the right posterior base. Maintaining good O2 saturations in the 90s on 2 L/m per nasal cannula. I discussed the assessment and plan of care with my nurse practitioner, Natividad Kruse. I attest to the above note as dictated by her.
== END 2018-12-09 15:15 | DRG 177 ==
LOC: EC 16:23 → 3SCARD 18:45
PROVIDERS: ADMIT Hospitalist; ATTEND Hospitalist
DX: J15.6 Pneumonia due to other Gram-negative bacteria (principal); K72.00 Acute and subacute hepatic failure without coma; I50.23 Acute on chronic systolic (congestive) heart failure; J44.0 Chronic obstructive pulmonary disease with (acute) lower respiratory infection; J44.1 Chronic obstructive pulmonary disease with (acute) exacerbation; E44.1 Mild protein-calorie malnutrition; L97.119 Non-pressure chronic ulcer of right thigh with unspecified severity; I11.0 Hypertensive heart disease with heart failure; Z66 Do not resuscitate; G62.9 Polyneuropathy, unspecified; J84.10 Pulmonary fibrosis, unspecified; T87.89 Other complications of amputation stump; L98.429 Non-pressure chronic ulcer of back with unspecified severity; J20.9 Acute bronchitis, unspecified; N30.91 Cystitis, unspecified with hematuria; I34.0 Nonrheumatic mitral (valve) insufficiency; I44.7 Left bundle-branch block, unspecified; E87.6 Hypokalemia; T50.2X5A Adverse effect of carbonic-anhydrase inhibitors, benzothiadiazides and other diuretics, initial encounter; K21.9 Gastro-esophageal reflux disease without esophagitis; E78.5 Hyperlipidemia, unspecified; F41.9 Anxiety disorder, unspecified; K43.9 Ventral hernia without obstruction or gangrene; R29.6 Repeated falls; Z68.20 Body mass index [BMI] 20.0-20.9, adult; F17.210 Nicotine dependence, cigarettes, uncomplicated; Z71.6 Tobacco abuse counseling; Z79.82 Long term (current) use of aspirin; Z79.02 Long term (current) use of antithrombotics/antiplatelets; Z79.51 Long term (current) use of inhaled steroids; Z79.52 Long term (current) use of systemic steroids; Z79.899 Other long term (current) drug therapy; Z71.3 Dietary counseling and surveillance; Z89.612 Acquired absence of left leg above knee; Z89.611 Acquired absence of right leg above knee; Z90.710 Acquired absence of both cervix and uterus; Z98.890 Other specified postprocedural states; Z86.2 Personal history of diseases of the blood and blood-forming organs and certain disorders involving the immune mechanism; Z86.79 Personal history of other diseases of the circulatory system; Z86.73 Personal history of transient ischemic attack (TIA), and cerebral infarction without residual deficits; Z59.8 Other problems related to housing and economic circumstances; Z88.5 Allergy status to narcotic agent; Z88.1 Allergy status to other antibiotic agents; Z88.8 Allergy status to other drugs, medicaments and biological substances
CPT/HCPCS: 36415; 71045; 71046; 80048; 80053; 81001; 82272; 83605; 83690; 83735; 83880; 84132; 84145; 84484; 85025; 85610; 85730; 86850; 86900; 86901; 87040; 87045; 87046; 87070; 87086; 87205; 93005; 93306; 94640; 94760; 96365; 96368; 96375; 99285

== ENCOUNTER 2019-12-22 00:14 | Observation (INO) | payer MEDICARE, OTHER ==
[2019-12-22] MEDS ORDERED: ONDANSETRON 4 MG/2 ML VIAL IVP STA (00:18)
[2019-12-22] MEDS ORDERED: NITROGLYCERIN OINT 1 INCH/GM PACKET TOPICAL STA (00:18)
[2019-12-22] MEDS: NITROGLYCERIN SL TABS 0.4 MG TAB SUBLINGUAL PRN ×3 (00:23→00:33)
--- NOTE | 2019-12-22 00:35 | ED ---
SOB HPI - General Chief Complaint: Chest Pain Stated Complaint: Chest Pain Time Seen by Provider: 12/22/19 00:18 Source: patient, EMS Mode of arrival: EMS - History of Present Illness Initial Comments: This patient is an 79-year-old woman presenting from [facility] by ambulance to be evaluated for shortness of breath, chest pain, nausea and diaphoresis. The patient states that she had gone to heavy cigarette tonight and then went to bed she noticed she was certainly a short of breath. Things rapidly progressed to the point that she could not breathe, she was sweating she was feeling nauseated and they phoned EMS. Transfer paperwork states that the patient had blood pressure 195/105. The verbal report from EMS reports that they had a blood pressure higher than that. The patient was placed on oxygen and did receive sublingual nitroglycerin, I believe 2 doses were given. The patient states that the chest pain was a tightness that started after the dyspnea. She is not having pain on arrival. MD Complaint: shortness of breath, chest pain -: hour(s) Severity: moderate Quality: other Consistency: constant Improves With: oxygen, upright position Worsens With: lying flat Known History Of: COPD, congestive heart failure Associated Symptoms: diaphoresis, nausea/vomiting Treatments Prior to Arrival: oxygen, nitroglycerin - Related Data Home Medications Medication Instructions Recorded Confirmed Aspirin EC [Ecotrin Low Dose] 81 mg PO DAILY 12/02/18 12/02/18 Atorvastatin [Lipitor] 40 mg PO DAILY 12/02/18 12/02/18 Clopidogrel Bisulfate [Plavix] 75 mg PO DAILY 12/02/18 12/02/18 Escitalopram Oxalate [Lexapro] 10 mg PO DAILY 12/02/18 12/02/18 Ferrous Sulfate [Iron (65 MG 325 mg PO DAILY 12/02/18 12/02/18 Elemental)] Fluticasone/Salmeterol [Advair 1 puff INHALATION RT-BID 12/02/18 12/02/18 250-50 Diskus] Furosemide [Lasix] 40 mg PO BID 12/02/18 12/02/18 Ipratropium-Albuterol Nebulize 3 ml INHALATION RT-QID 12/02/18 12/02/18 [Duoneb 0.5 mg-3 mg/3 ml Soln] Nitroglycerin Sl Tabs [Nitrostat] 0.4 mg PO Q5M PRN 12/02/18 12/02/18 Omeprazole [PriLOSEC] 20 mg PO DAILY 12/02/18 12/02/18 Potassium Chloride ER [K-Dur 20] 20 meq PO DAILY 12/02/18 12/02/18 Previous Rx's Medication Instructions Recorded ALPRAZolam [Xanax] 0.5 mg PO BID PRN #6 tab 12/09/18 Amoxic-Pot Clav 875-125Mg 1 each PO Q12HR #6 tab 12/09/18 [Augmentin 875-125] Fluconazole [Diflucan] 100 mg PO DAILY #5 tab 12/09/18 Gabapentin 600 mg PO TID #9 tab 12/09/18 Losartan [Cozaar] 25 mg PO HS tab 12/09/18 Metoprolol Tartrate [Lopressor] 25 mg PO TID #0 12/09/18 Nicotine 21Mg/24Hr Patch [Habitrol] 1 patch TRANSDERM DAILY #14 patch 12/09/18 Spironolactone [Aldactone] 25 mg PO DAILY tab 12/09/18 predniSONE 10 mg PO DAILY #30 tab 12/09/18 Allergies Allergy/AdvReac Type Severity Reaction Status Date / Time bacitracin Allergy Rash/Hives Verified 12/02/18 18:46 [From Neosporin ([id number])] diphenhydramine Allergy Swelling Verified 12/02/18 18:46 [From Benadryl] iodine Allergy Swelling Verified 12/02/18 18:46 moxifloxacin [From Avelox] Allergy Anaphylaxis Verified 12/02/18 18:46 neomycin Allergy Rash/Hives Verified 12/02/18 18:46 [From Neosporin ([id number])] polymyxin B Allergy Rash/Hives Verified 12/02/18 18:46 [From Neosporin ([id number])] morphine AdvReac Hallucinati Verified 12/02/18 18:46 ons Ucaktii-Kps-Vus Reductase AdvReac NOT SURE, Verified 12/02/18 18:46 Inhibitor STILL TAKES LIPITOR Review of Systems ROS Statement: Those systems with pertinent positive or pertinent negative responses have been documented in the HPI. ROS Other: All systems not noted in ROS Statement are negative. Constitutional: Denies: fever, chills Respiratory: Reports: dyspnea. Denies: cough, wheezes, hemoptysis Cardiovascular: Reports: chest pain, orthopnea. Denies: palpitations, edema, syncope Gastrointestinal: Reports: nausea. Denies: abdominal pain, vomiting, diarrhea Genitourinary: Denies: dysuria, hematuria Musculoskeletal: Denies: back pain Skin: Denies: rash Neurological: Denies: headache, weakness Past Medical History Past Medical History: Blood Disorder, Chest Pain / Angina, COPD, GERD/Reflux, Hyperlipidemia, Hypertension, Pneumonia, Vascular Disorder Additional Past Medical History / Comment(s): pvd, anemia, neuropathy History of Any Multi-Drug Resistant Organisms: None Reported Past Surgical History: Breast Surgery, Hysterectomy Additional Past Surgical History / Comment(s): double amputation Past Anesthesia/Blood Transfusion Reactions: No Reported Reaction Past Psychological History: Anxiety Smoking Status: Current every day smoker Past Alcohol Use History: None Reported Past Drug Use History: None Reported - Past Family History Mother History Unknown: Yes Father History Unknown: Yes General Exam General appearance: alert, in distress Head exam: Present: atraumatic, normocephalic Eye exam: Present: normal appearance. Absent: scleral icterus, conjunctival injection Neck exam: Present: normal inspection, other (There is JVD) Respiratory exam: Present: respiratory distress, wheezes, accessory muscle use. Absent: rales, rhonchi, stridor Cardiovascular Exam: Present: tachycardia, systolic murmur, gallop. Absent: diastolic murmur, rubs GI/Abdominal exam: Present: soft. Absent: distended, tenderness, guarding, rebound, rigid, mass Extremities exam: Present: normal inspection, normal capillary refill, other (Bilateral above-knee amputation) Back exam: Present: normal inspection. Absent: CVA tenderness (R), CVA tenderness (L) Neurological exam: Present: alert Skin exam: Present: intact, diaphoretic, mottled. Absent: rash Course Vital Signs 12/22/19 12/22/19 12/22/19 00:16 00:28 00:34 Temperature 98.3 F Pulse Rate 151 H 138 H Respiratory 20 30 H Rate Blood Pressure 129/81 116/82 109/78 O2 Sat by Pulse 97 97 Oximetry 12/22/19 00:45 Temperature Pulse Rate 110 H Respiratory 19 Rate Blood Pressure 96/58 O2 Sat by Pulse 98 Oximetry Medical Decision Making - Medical Decision Making Patient is an 79-year-old woman presenting with severe dyspnea, consistent with acute hypertensive emergency, congestive heart failure picture. She did receive additional sublingual nitroglycerin, Nitropaste ointment, was placed on BiPAP, and she did continue to rapidly improve. The patient's heart rates normalize, oxygen saturation is improved, and we were able to wean her from the BiPAP. She continued to deny chest pain and was asymptomatic through the latter course in the emergency room The workup does reveal minimally elevated troponin which does. Be due to congestive heart failure rather than acute infarction. - Lab Data Result diagrams: 12/22/19 00:33 12/22/19 00:33 Lab Results 12/22/19 12/22/19 12/22/19 Range/Units 00:33 00:33 00:33 WBC 26.0 H (3.8-10.6) k/uL RBC 4.42 (3.80-5.40) m/uL Hgb 13.9 (11.4-16.0) gm/dL Hct 43.9 (34.0-46.0) % MCV 99.4 (80.0-100.0) fL MCH 31.5 (25.0-35.0) pg MCHC 31.7 (31.0-37.0) g/dL RDW 14.3 (11.5-15.5) % Plt Count 212 (150-450) k/uL Neutrophils % 90 % Lymphocytes % 5 % Monocytes % 3 % Eosinophils % 1 % Basophils % 0 % Neutrophils # 23.4 H (1.3-7.7) k/uL Lymphocytes # 1.4 (1.0-4.8) k/uL Monocytes # 0.8 (0-1.0) k/uL Eosinophils # 0.2 (0-0.7) k/uL Basophils # 0.1 (0-0.2) k/uL PT (9.0-12.0) sec INR (<1.2) APTT (22.0-30.0) sec Sodium 135 L (137-145) mmol/L Potassium 5.4 H (3.5-5.1) mmol/L Chloride 102 (98-107) mmol/L Carbon Dioxide 26 (22-30) mmol/L Anion Gap 7 mmol/L BUN 22 H (7-17) mg/dL Creatinine 0.84 (0.52-1.04) mg/dL Est GFR (CKD-EPI)AfAm 76 (>60 ml/min/1.73 sqM) Est GFR (CKD-EPI)NonAf 66 (>60 ml/min/1.73 sqM) Glucose 142 H (74-99) mg/dL Calcium 9.0 (8.4-10.2) mg/dL Magnesium 1.9 (1.6-2.3) mg/dL Total Bilirubin 0.7 (0.2-1.3) mg/dL AST 29 (14-36) U/L ALT 29 (4-34) U/L Alkaline Phosphatase 103 (38-126) U/L Troponin I 0.101 H* (0.000-0.034) ng/mL NT-Pro-B Natriuret Pep pg/mL Total Protein 6.4 (6.3-8.2) g/dL Albumin 3.8 (3.5-5.0) g/dL 12/22/19 12/22/19 Range/Units 00:33 00:34 WBC (3.8-10.6) k/uL RBC (3.80-5.40) m/uL Hgb (11.4-16.0) gm/dL Hct (34.0-46.0) % MCV (80.0-100.0) fL MCH (25.0-35.0) pg MCHC (31.0-37.0) g/dL RDW (11.5-15.5) % Plt Count (150-450) k/uL Neutrophils % % Lymphocytes % % Monocytes % % Eosinophils % % Basophils % % Neutrophils # (1.3-7.7) k/uL Lymphocytes # (1.0-4.8) k/uL Monocytes # (0-1.0) k/uL Eosinophils # (0-0.7) k/uL Basophils # (0-0.2) k/uL PT 9.8 (9.0-12.0) sec INR 0.9 (<1.2) APTT 23.0 (22.0-30.0) sec Sodium (137-145) mmol/L Potassium (3.5-5.1) mmol/L Chloride (98-107) mmol/L Carbon Dioxide (22-30) mmol/L Anion Gap mmol/L BUN (7-17) mg/dL Creatinine (0.52-1.04) mg/dL Est GFR (CKD-EPI)AfAm (>60 ml/min/1.73 sqM) Est GFR (CKD-EPI)NonAf (>60 ml/min/1.73 sqM) Glucose (74-99) mg/dL Calcium (8.4-10.2) mg/dL Magnesium (1.6-2.3) mg/dL Total Bilirubin (0.2-1.3) mg/dL AST (14-36) U/L ALT (4-34) U/L Alkaline Phosphatase (38-126) U/L Troponin I (0.000-0.034) ng/mL NT-Pro-B Natriuret Pep 59708 pg/mL Total Protein (6.3-8.2) g/dL Albumin (3.5-5.0) g/dL - EKG Data -: EKG Interpreted by Vt EKG shows normal: sinus rhythm, axis (Left axis deviation), intervals (Respirations 138 ms, prolonged consistent with left bundle branch block), QRS complexes ((Bundle-branch block) Rate: tachycardia (Rate approximately 150 bpm) Interpretation: other (There is a pre-existing left bundle-branch block (present on ECG from 1 year ago)) Critical Care Time Critical Care Time: Yes (35 minutes) Disposition Clinical Impression: CHF (congestive heart failure), Elevated troponin, Hypertensive emergency Disposition: ADMITTED IP TO THIS [facility] Condition: Fair Referrals: Juan Miguel Orr MD [Primary Care Provider] - 1-2 days
[2019-12-22 00:42] LABS: Basophils # (A) 0.1 k/uL (0-0.2); Basophils % (A) 0 %; Eosinophils # (A) 0.2 k/uL (0-0.7); Eosinophils % (A) 1 %; HCT 43.9 % (34.0-46.0); HGB 13.9 gm/dL (11.4-16.0); Lymphocytes # (A) 1.4 k/uL (1.0-4.8); Lymphocytes % (A) 5 %; MCH 31.5 pg (25.0-35.0); MCHC 31.7 g/dL (31.0-37.0); MCV 99.4 fL (80.0-100.0); Monocytes # (A) 0.8 k/uL (0-1.0); Monocytes % (A) 3 %; Neutrophils # (A) 23.4 k/uL (1.3-7.7); Neutrophils % (A) 90 %; Platelet Count 212 k/uL (150-450); RBC 4.42 m/uL (3.80-5.40); RDW 14.3 % (11.5-15.5)
[2019-12-22] MEDS ORDERED: NITROGLYCERIN SL TABS 0.4 MG TAB SUBLINGUAL SCH (00:45)
--- NOTE | 2019-12-22 00:48 | XR ---
EXAMINATION TYPE: XR chest 1V portable DATE OF EXAM: 12/22/2019 COMPARISON: 12/07/2018 HISTORY: Chest pain short of breath TECHNIQUE: Single view FINDINGS: There is mild pulmonary congestion. There is slight blunting right costophrenic angle. Ther e are chest leads. Heart is probably enlarged. IMPRESSION: Mild heart failure with small right pleural effusion. Pulmonary congestion increased comp ared to old exam.
[2019-12-22 00:50] LABS: INR 0.9 (<1.2); Prothrombin Time 9.8 sec (9.0-12.0)
[2019-12-22 00:53] LABS: Albumin 3.8 g/dL (3.5-5.0); Magnesium 1.9 mg/dL (1.6-2.3); Potassium 5.4 mmol/L (3.5-5.1); Total Bilirubin 0.7 mg/dL (0.2-1.3); Total Protein 6.4 g/dL (6.3-8.2)
[2019-12-22] MEDS ORDERED: NITROGLYCERIN SL TABS 0.4 MG TAB SUBLINGUAL PRN (01:40)
[2019-12-22] MEDS: FUROSEMIDE 10 MG/ML 4 ML VIAL IV SCH ×3 (02:24→16:21)
[2019-12-22] MEDS ORDERED: SPIRONOLACTONE 25 MG TAB PO SCH (09:00)
[2019-12-22] MEDS ORDERED: POTASSIUM CHLORIDE ER 20 MEQ TAB.ER PO SCH (09:00)
[2019-12-22] MEDS: SYMBICORT 80-4.5 MCG INHALER INHALATION SCH ×2 (09:35→20:01)
[2019-12-22] MEDS: IPRATROPIUM-ALBUTEROL 3 ML NEB INHALATION SCH ×4 (09:35→20:00)
[2019-12-22] MEDS ORDERED: INFLUENZA VACCINE (6 MOS+) 60 MCG/0.5 ML SYRINGE IM ONE (09:54)
[2019-12-22] MEDS ORDERED: HYDROcodone/APAP 5-325MG 1 EACH TAB PO PRN (10:19)
[2019-12-22] MEDS: CLOPIDOGREL 75 MG TAB PO SCH (11:37)
[2019-12-22] MEDS: PANTOPRAZOLE 40 MG TABLET PO SCH (11:37)
[2019-12-22] MEDS: ASPIRIN 81 MG PO SCH (11:37)
[2019-12-22] MEDS: FERROUS SULFATE 325 MG TAB PO SCH (11:38)
[2019-12-22] MEDS: predniSONE 10 MG TAB PO SCH (11:38)
[2019-12-22] MEDS: NICOTINE 21MG/24HR PATCH TRANSDERM SCH (11:38)
[2019-12-22] MEDS: GABAPENTIN 300 MG CAP PO SCH ×4 (11:38→20:38)
[2019-12-22] MEDS: ESCITALOPRAM 10 MG TAB PO SCH (11:38)
[2019-12-22] MEDS: ATORVASTATIN 40 MG TAB PO SCH (11:38)
--- NOTE | 2019-12-22 14:30 | P.CRDCN ---
History of Present Illness History of present illness: HISTORY OF PRESENTING ILLNESS This is a pleasant 79-year-old female past medical history significant for chronic systolic heart failure, peripheral vascular disease s/p bilateral a krissy the knee amputation, COPD, anemia, hypertension and chronic nicotine dependence. She does not follow in the office with a unit supervisor. We have been asked to see in consultation for heart failure. She had an echocardiogram performed here last year revealing severely impaired LV systolic function with ejection fraction 20-25%, severe global hypokinesia, grade 3 diastolic dysfunction, aortic valve is trileaflet and moderately thickened with a mean gradient of 3 mmHg severe mitral regurgitation. She does not follow in the office. She presented to the hospital with symptoms of shortness of breath, chest pain, nausea and diaphoresis. She states her shortness of breath started last night after smoking a cigarette. It seemed to come on acutely. She felt diaphoretic at the time. EMS was notified on their arrival blood pressure was 195/105. She was given sublingual nitroglycerin which did drop her blood pressure. Her pain had subsided prior to arrival to the emergency department. Blood pressure on arrival was 129/81. EKG reveals wide complex tachycardia with rate related left bundle branch block. Chest x-ray reveals mild heart failure with small right pleural effusion and increased pulmonary congestion. Laboratory data reviewed, WBC 26, hemoglobin 13.9, platelets 212, sodium 135, potassium 5.4, creatinine 0.84, magnesium 1.9, troponin 0.101, 0.222, 0.209 and BNP 16,900. Current daily cardiac medications include aspirin 81 mg daily, atorvastatin 40 mg daily, Plavix 75 mg daily, lisinopril 2.5 mg daily, Lasix 40 mg by mouth twice a day and Lopressor 25 mg twice a day. REVIEW OF SYSTEMS At the time of my exam: CONSTITUTIONAL: Denies fever or chills. CARDIOVASCULAR: Denies chest pain, shortness of breath, orthopnea, PND or palpitations. RESPIRATORY: Denies cough. GASTROINTESTINAL: Denies abdominal pain, diarrhea, constipation, nausea or vomiting. MUSCULOSKELETAL: Denies myalgias. NEUROLOGIC: Denies numbness, tingling or weakness. ENDOCRINE: Denies fatigue, weight change, polydipsia or polyurina. GENITOURINARY: Denies burning, hematuria or urgency with micturation. HEMATOLOGIC: Denies history of anemia or bleeding. PHYSICAL EXAMINATION Blood pressure 122/65 heart rate 77 afebrile and maintaining oxygen saturation on nasal cannula. CONSTITUTIONAL: No apparent distress. HEENT: Head is normocephalic. Pupils are equal, round. Sclerae anicteric. Mucous membranes of the mouth are moist. No JVD. No carotid bruit. CHEST EXAMINATION: Lungs are clear to auscultation. No chest wall tenderness is noted on palpation or with deep breathing. HEART EXAMINATION: Regular rate and rhythm. S1, S2 heard. No murmurs, gallops or rub. ABDOMEN: Soft, nontender. Positive bowel sounds. EXTREMITIES: 2+ peripheral pulses, no lower extremity edema and no calf tendern ess. NEUROLOGIC EXAMINATION: Patient is awake, alert and oriented x3. ASSESSMENT Acute on chronic systolic heart failure Chronic troponin elevation of unclear significance, likely related to tachyca rdia Hyperkalemia Peripheral vascular disease s/p bilateral AKA COPD Hypertension Dyslipidemia Chronic nicotine dependence PLAN Hold lisinopril for hypotension Resume lopressor at 12.5 mg BID. Repeat EKG. Obtain 2D echocardiogram and doppler study to assess cardiac structure and function. Continue IV diuresis. Document accurate intake and output along with daily weights. Follow renal function and electrolytes in the morning. Hold daily potassium supplementation and follow potassium level closely. Further recommendations to follow based on clinical course. Thank you kindly for this consultation. Nurse Practitioner note has been reviewed, I agree with a documented findings and plan of care. Patient was seen and examined. Past Medical History Past Medical History: Blood Disorder, Coronary Artery Disease (CAD), Cancer, Chest Pain / Angina, Heart Failure, COPD, CVA/TIA, GERD/Reflux, Hyperlipidemia, Hypertension, Osteoarthritis (OA), Pneumonia, Respiratory Disorder, Rheumatoid Arthritis (RA), Vascular Disorder Additional Past Medical History / Comment(s): Pt states she was recently admitted to [facility] with pneumonia/bronchitis/pneumonia/exacerbation COPD and CHF per pt. Other hx: Bronchitis, oxygen at 2L/NC ATC, mitral valve regurgitation, TIAs, hiatal hernia, past gastric ulcer, PAD/bilateral AKAs, past chronic R stump wound, R caratid 100% blocked per pt, neuropathy bilateral hands, chronic back pain, psoriatic arthritis, L breast cancer with lumpectomy/radiation, UTIs, anemia, protein calorie malnutrition, insomnia History of Any Multi-Drug Resistant Organisms: None Reported Past Surgical History: Breast Surgery, Heart Catheterization, Hysterectomy, Orthopedic Surgery, Tonsillectomy Additional Past Surgical History / Comment(s): Aortagrams with runoffs, R leg BKA then AKA/skin graft to chronic wound R leg stump, L leg AKA, fem/fem bypass then removal of vascular device, bilateral caratid endartectomies, R breast lum pectomy, bilateral cataract removals/lens implants Past Anesthesia/Blood Transfusion Reactions: No Reported Reaction Smoking Status: Current every day smoker - Past Family History Mother History Unknown: Yes Family Medical History: Dementia Additional Family Medical History / Comment(s): Mother of alzheimer's at the age of 85 yrs. Father History Unknown: Yes Family Medical History: CVA/TIA, Diabetes Mellitus, Osteoarthritis (OA) Additional Family Medical History / Comment(s): Father of a UTI in his 70s Medications and Allergies Home Medications Medication Instructions Recorded Confirmed Type Aspirin EC [Ecotrin Low Dose] 81 mg PO DAILY 12/02/18 12/22/19 History Atorvastatin [Lipitor] 40 mg PO HS 12/02/18 12/22/19 History Clopidogrel Bisulfate [Plavix] 75 mg PO DAILY 12/02/18 12/22/19 History Escitalopram Oxalate [Lexapro] 10 mg PO DAILY 12/02/18 12/22/19 History Ferrous Sulfate [Iron (65 MG 325 mg PO DAILY 12/02/18 12/22/19 History Elemental)] Fluticasone/Salmeterol [Advair 1 puff INHALATION RT-BID 12/02/18 12/22/19 History 250-50 Diskus] Furosemide [Lasix] 40 mg PO BID@0600,1400 12/02/18 12/22/19 History Ipratropium-Albuterol Nebulize 3 ml INHALATION RT-QID 12/02/18 12/22/19 History [Duoneb 0.5 mg-3 mg/3 ml Soln] Omeprazole [PriLOSEC] 20 mg PO DAILY@0600 12/02/18 12/22/19 History Potassium Chloride ER [K-Dur 20] 20 meq PO DAILY 12/02/18 12/22/19 History ALPRAZolam [Xanax] 0.5 mg PO BID PRN #6 tab 12/09/18 12/22/19 Rx Docusate [Colace] 100 mg PO DAILY PRN 12/22/19 12/22/19 History Gabapentin 600 mg PO HS 12/22/19 12/22/19 History Hydrocodone/Acetaminophen [[place] 1 tab PO Q8H PRN 12/22/19 12/22/19 History 5-325] Melatonin 5 mg PO HS PRN 12/22/19 12/22/19 History Metoprolol Tartrate [Lopressor] 25 mg PO BID 12/22/19 12/22/19 History lisinopriL [Zestril] 2.5 mg PO DAILY 12/22/19 12/22/19 History Allergies Allergy/AdvReac Type Severity Reaction Status Date / Time bacitracin Allergy Rash/Hives Verified 12/22/19 06:49 [From Neosporin ([id number])] brompheniramine Allergy Unknown Verified 12/22/19 06:49 [From Dimetapp (brompheniramine-PPA)] cefpodoxime [From Vantin] Allergy Unknown Verified 12/22/19 06:49 ciprofloxacin [From Cipro] Allergy Unknown Verified 12/22/19 06:49 clindamycin [From Cleocin] Allergy Unknown Verified 12/22/19 06:49 diphenhydramine Allergy Swelling Verified 12/22/19 06:49 [From Benadryl] Iodinated Contrast Media Allergy Unknown Verified 12/22/19 06:49 iodine Allergy Swelling Verified 12/22/19 06:49 mercury (elemental) Allergy Unknown Verified 12/22/19 06:49 moxifloxacin [From Avelox] Allergy Anaphylaxis Verified 12/22/19 06:49 neomycin Allergy Rash/Hives Verified 12/22/19 06:49 [From Neosporin ([id number])] phenylpropanolamine Allergy Unknown Verified 12/22/19 06:49 [From Dimetapp (brompheniramine-PPA)] polymyxin B Allergy Rash/Hives Verified 12/22/19 06:49 [From Neosporin ([id number]-fiy-lumxt)] povidone-iodine Allergy Unknown Verified 12/22/19 06:49 [From Betadine] soap [From Betadine] Allergy Unknown Verified 12/22/19 06:49 Sulfa (Sulfonamide Allergy Unknown Verified 12/22/19 06:49 Antibiotics) morphine AdvReac Hallucinati Verified 12/22/19 06:49 ons Pozjbps-Nxg-Ytx Reductase AdvReac NOT SURE, Verified 12/22/19 06:49 Inhibitor STILL TAKES LIPITOR SILCONE Allergy Unknown Uncoded 12/22/19 06:49 Physical Exam Vitals: Vital Signs Temp Pulse Pulse Resp BP BP Pulse Ox 12/22/19 13:23 77 12/22/19 13:11 76 12/22/19 11:41 70 18 122/65 99 12/22/19 09:51 70 12/22/19 09:35 68 12/22/19 09:33 98.3 F 67 18 88/59 93 L 12/22/19 06:00 73 18 73/51 96 12/22/19 05:27 82 19 120/86 98 12/22/19 03:41 104/46 12/22/19 00:45 110 H 19 96/58 98 12/22/19 00:34 109/78 97 12/22/19 00:28 138 H 30 H 116/82 97 12/22/19 00:16 98.3 F 151 H 20 129/81 Intake and Output 12/21/19 12/22/19 12/22/19 22:59 06:59 14:59 Other: Weight 62.596 kg 62.596 kg Results 12/22/19 00:33 12/22/19 00:33 Cardiac Enzymes 12/22/19 12/22/19 12/22/19 Range/Units 00:33 00:33 03:00 AST 29 (14-36) U/L Troponin I 0.101 H* 0.222 H* (0.000-0.034) ng/mL 12/22/19 Range/Units 07:53 AST (14-36) U/L Troponin I 0.209 H* (0.000-0.034) ng/mL Coagulation 12/22/19 Range/Units 00:34 PT 9.8 (9.0-12.0) sec APTT 23.0 (22.0-30.0) sec CBC 12/22/19 Range/Units 00:33 WBC 26.0 H (3.8-10.6) k/uL RBC 4.42 (3.80-5.40) m/uL Hgb 13.9 (11.4-16.0) gm/dL Hct 43.9 (34.0-46.0) % Plt Count 212 (150-450) k/uL Comprehensive Metabolic Panel 12/22/19 Range/Units 00:33 Sodium 135 L (137-145) mmol/L Potassium 5.4 H (3.5-5.1) mmol/L Chloride 102 (98-107) mmol/L Carbon Dioxide 26 (22-30) mmol/L BUN 22 H (7-17) mg/dL Creatinine 0.84 (0.52-1.04) mg/dL Glucose 142 H (74-99) mg/dL Calcium 9.0 (8.4-10.2) mg/dL AST 29 (14-36) U/L ALT 29 (4-34) U/L Alkaline Phosphatase 103 (38-126) U/L Total Protein 6.4 (6.3-8.2) g/dL Albumin 3.8 (3.5-5.0) g/dL Current Medications Generic Name Dose Route Start Last Admin Trade Name Freq PRN Reason Stop Dose Admin Hydrocodone Bitart/Acetaminophen 1 each 12/22/19 10:19 Hydrocodone/Apap 5-325mg 1 Each Tab PO Q8H PRN Pain Albuterol/Ipratropium 3 ml 12/22/19 08:00 12/22/19 13:11 Ipratropium-Albuterol 3 Ml Neb INHALATION 3 ml RT-QID MADISON Administration Alprazolam 0.5 mg 12/22/19 01:40 Alprazolam 0.5 Mg Tab PO BID PRN Anxiety Aspirin 81 mg 12/22/19 09:00 12/22/19 11:37 Aspirin 81 Mg PO 81 mg DAILY MADISON Administration Atorvastatin Calcium 40 mg 12/22/19 09:00 12/22/19 11:38 Atorvastatin 40 Mg Tab PO 40 mg DAILY MADISON Administration Budesonide/Formoterol Fumarate 2 puff 12/22/19 08:00 12/22/19 09:35 Symbicort 80-4.5 Mcg Inhaler INHALATION 2 puff RT-BID MADISON Administration Clopidogrel Bisulfate 75 mg 12/22/19 09:00 12/22/19 11:37 Clopidogrel 75 Mg Tab PO 75 mg DAILY M[place]ISON Administration Escitalopram Oxalate 10 mg 12/22/19 09:00 12/22/19 11:38 Escitalopram 10 Mg Tab PO 10 mg DAILY M[place] Administration Ferrous Sulfate 325 mg 12/22/19 09:00 12/22/19 11:38 Ferrous Sulfate 325 Mg Tab PO 325 mg DAILY M[place] Administration Furosemide 40 mg 12/22/19 01:45 12/22/19 02:24 Furosemide 10 Mg/Ml 4 Ml Vial IV 40 mg Q12H M[place]ISON Administration Gabapentin 600 mg 12/22/19 09:00 12/22/19 11:38 Gabapentin 300 Mg Cap PO 600 mg TID MADISON Administration Gabapentin 600 mg 12/22/19 21:00 Gabapentin 300 Mg Cap PO HS MADISON Losartan Potassium 25 mg 12/22/19 21:00 Losartan 25 Mg Tab PO HS MADISON Melatonin 5 mg 12/22/19 21:00 Melatonin 5 Mg Tablet PO HS PRN Insomnia Metoprolol Tartrate 12.5 mg 12/22/19 21:00 Metoprolol Tartrate 12.5 Mg Tab PO BID MADISON Nicotine 1 patch 12/22/19 09:00 12/22/19 11:38 Nicotine 21mg/24hr Patch TRANSDERM 1 patch DAILY M[place] Administration Nitroglycerin 0.4 mg 12/22/19 00:37 12/22/19 00:33 Nitroglycerin Sl Tabs 0.4 Mg Tab SUBLINGUAL 0.4 mg Q5M PRN Administration Chest Pain Nitroglycerin 0.4 mg 12/22/19 01:40 Nitroglycerin Sl Tabs 0.4 Mg Tab SUBLINGUAL Q5M PRN Chest Pain Pantoprazole Sodium 40 mg 12/22/19 07:30 12/22/19 11:37 Pantoprazole 40 Mg Tablet PO 40 mg DAILY@0730 MAD[place] Administration Potassium Chloride 20 meq 12/22/19 09:00 12/22/19 10:05 Potassium Chloride Er 20 Meq Tab.Er PO Not Given DAILY MADISON Prednisone 10 mg 12/22/19 09:00 12/22/19 11:38 Prednisone 10 Mg Tab PO 10 mg DAILY M[place] Administration Sodium Chloride 10 ml 12/22/19 09:00 12/22/19 11:38 Sodium Chloride 0.9% Flush 10 Ml Syringe IV 10 ml BID MADISON Administration Intake and Output 12/21/19 12/22/19 12/22/19 22:59 06:59 14:59 Other: Weight 62.596 kg 62.596 kg Patient Weight 12/23/19 06:59 Weight 62.596 kg 12/22/19 00:33 12/22/19 00:33
[2019-12-22] MEDS: ALPRAZolam 0.5 MG TAB PO PRN (20:38)
[2019-12-22] MEDS: MELATONIN 5 MG TABLET PO PRN (20:38)
[2019-12-22] MEDS: METOPROLOL TARTRATE 12.5 MG TAB PO SCH (20:39)
[2019-12-22] MEDS: LOSARTAN 25 MG TAB PO SCH (20:39)
--- NOTE | 2019-12-22 21:02 | P.HPIM ---
History of Present Illness H&P Date: 12/22/19 Chief Complaint: Short of breath History of presenting complaint: This is a pleasant 79-year-old patient who follows with Dr. Orr. 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 Chronic stable medical conditions include hypertension, hyperlipidemia, GERD, peripheral artery disease, peripheral neuropathy, bilateral above-knee amputation. Patient was recently discharged from [facility] for diagnosis of pneumonia, COPD exacerbation. Patient continued to smoke a few cigarettes a day. Patient presents with increasing shortness of breath or wheezing. Some nausea. Has felt hot no documented fever. Decreased appetite. Tired and rundown. Admitted for the same. No sputum production. Review of systems: GEN.: Tired decreased appetite EYES: None HEENT: None NECK: None RESPIRATORY: As above CARDIOVASCULAR: None GASTROINTESTINAL: None GENITOURINARY: None MUSCULOSKELETAL: Pain in multiple joints LYMPHATICS: None HEMATOLOGICAL: None PSYCHIATRY: None NEUROLOGICAL: None Past medical history to include: Congestive heart failure from systolic dysfunction EF 20-25%, COPD, severe mitral regurgitation, chronic bilateral above-knee hypertension, peripheral arterial disease, GERD, hyperlipidemia Social history: Patient does use a wheelchair. Home oxygen 2 L. Has been smoking since 1953. No alcohol. Physical examination: VITAL SIGNS: 98.3, 67, 18, 88/59, 93% on 4 L GENERAL: BMI 42.1, sitting up in bed, slightly short of breath EYES: Pupils equal. Conjunctiva normal HEENT: External appearance of nose and ears normal, oral cavity grossly normal. NECK: JVD unable to assess; masses not palpable. HEART: First and second heart sounds are normal; no edema. LUNGS: Respiratory rate increased, decreased breath sounds ABDOMEN: Soft, nontender, liver spleen not palpable, no masses palpable. PSYCH: Alert and oriented x3; mood and affect normal. NEUROLOGICAL: Cranial nerves grossly intact; no facial asymmetry, power and sensation grossly intact. LYMPHATICS: No lymph nodes palpable in the axilla and neck Extremities: Bilateral above-knee amputation, INVESTIGATIONS, reviewed in the clinical context: White count 26 hemoglobin 13.9 platelets 212 potassium 5.4 creatinine 0.849 troponin I 0.101, 0.2-2, 0.209 ProBNP 16,900 EKG tracing personally reviewed by me-left bundle-branch block pattern with a heart rate of 152 Chest x-ray film personally reviewed by me-pulmonary edema with small pleural effusion Assessment: -Acute on chronic congestive heart failure exacerbation, systolic dysfunction EF 20-25 percent, -Acute COPD exacerbation in a current smoker, -Severe mitral regurgitation, nonrheumatic -Chronic nicotine dependence patient cigarette smoker -Chronic bilateral above-knee amputation -Chronic right lower extremity stump wound -Peripheral arterial disease -GERD -Hyperlipidemia -Left bundle-branch block Plan: Patient place and IV Lasix. Bronchodilator. Inhaled steroids. Home medications to continue. Cardiology consulted. Discussed with patient Smoke cessation counseling: This was done with the patient. Nicotine patch is being given. More than 3 minutes was spent for this Past Medical History Past Medical History: Blood Disorder, Coronary Artery Disease (CAD), Cancer, Chest Pain / Angina, Heart Failure, COPD, CVA/TIA, GERD/Reflux, Hyperlipidemia, Hypertension, Osteoarthritis (OA), Pneumonia, Respiratory Disorder, Rheumatoid Arthritis (RA), Vascular Disorder Additional Past Medical History / Comment(s): Pt states she was recently admitted to [facility] with pneumonia/bronchitis/pneumonia/exacerbation COPD and CHF per pt. Other hx: Bronchitis, oxygen at 2L/NC ATC, mitral valve regurgitation, TIAs, hiatal hernia, past gastric ulcer, PAD/bilateral AKAs, past chronic R stump wound, R caratid 100% blocked per pt, neuropathy bilateral hands, chronic back pain, psoriatic arthritis, L breast cancer with lumpectomy/radiation, UTIs, anemia, protein calorie malnutrition, insomnia History of Any Multi-Drug Resistant Organisms: None Reported Past Surgical History: Breast Surgery, Heart Catheterization, Hysterectomy, Orthopedic Surgery, Tonsillectomy Additional Past Surgical History / Comment(s): Aortagrams with runoffs, R leg BKA then AKA/skin graft to chronic wound R leg stump, L leg AKA, fem/fem bypass then removal of vascular device, bilateral caratid endartectomies, R breast lumpectomy, bilateral cataract removals/lens implants Past Anesthesia/Blood Transfusion Reactions: No Reported Reaction Smoking Status: Current every day smoker - Past Family History Mother History Unknown: Yes Family Medical History: Dementia Additional Family Medical History / Comment(s): Mother of alzheimer's at the age of 85 yrs. Father History Unknown: Yes Family Medical History: CVA/TIA, Diabetes Mellitus, Osteoarthritis (OA) Additional Family Medical History / Comment(s): Father of a UTI in his 70s Medications and Allergies Home Medications Medication Instructions Recorded Confirmed Type Aspirin EC [Ecotrin Low Dose] 81 mg PO DAILY 12/02/18 12/22/19 History Atorvastatin [Lipitor] 40 mg PO HS 12/02/18 12/22/19 History Clopidogrel Bisulfate [Plavix] 75 mg PO DAILY 12/02/18 12/22/19 History Escitalopram Oxalate [Lexapro] 10 mg PO DAILY 12/02/18 12/22/19 History Ferrous Sulfate [Iron (65 MG 325 mg PO DAILY 12/02/18 12/22/19 History Elemental)] Fluticasone/Salmeterol [Advair 1 puff INHALATION RT-BID 12/02/18 12/22/19 History 250-50 Diskus] Furosemide [Lasix] 40 mg PO BID@0600,1400 12/02/18 12/22/19 History Ipratropium-Albuterol Nebulize 3 ml INHALATION RT-QID 12/02/18 12/22/19 History [Duoneb 0.5 mg-3 mg/3 ml Soln] Omeprazole [PriLOSEC] 20 mg PO DAILY@0600 12/02/18 12/22/19 History Potassium Chloride ER [K-Dur 20] 20 meq PO DAILY 12/02/18 12/22/19 History ALPRAZolam [Xanax] 0.5 mg PO BID PRN #6 tab 12/09/18 12/22/19 Rx Docusate [Colace] 100 mg PO DAILY PRN 12/22/19 12/22/19 History Gabapentin 600 mg PO HS 12/22/19 12/22/19 History Hydrocodone/Acetaminophen [Curran 1 tab PO Q8H PRN 12/22/19 12/22/19 History 5-325] Melatonin 5 mg PO HS PRN 12/22/19 12/22/19 History Metoprolol Tartrate [Lopressor] 25 mg PO BID 12/22/19 12/22/19 History lisinopriL [Zestril] 2.5 mg PO DAILY 12/22/19 12/22/19 History Allergies Allergy/AdvReac Type Severity Reaction Status Date / Time bacitracin Allergy Rash/Hives Verified 12/22/19 06:49 [From Neosporin ([id number])] brompheniramine Allergy Unknown Verified 12/22/19 06:49 [From Dimetapp (brompheniramine-PPA)] cefpodoxime [From Vantin] Allergy Unknown Verified 12/22/19 06:49 ciprofloxacin [From Cipro] Allergy Unknown Verified 12/22/19 06:49 clindamycin [From Cleocin] Allergy Unknown Verified 12/22/19 06:49 diphenhydramine Allergy Swelling Verified 12/22/19 06:49 [From Benadryl] Iodinated Contrast Media Allergy Unknown Verified 12/22/19 06:49 iodine Allergy Swelling Verified 12/22/19 06:49 mercury (elemental) Allergy Unknown Verified 12/22/19 06:49 moxifloxacin [From Avelox] Allergy Anaphylaxis Verified 12/22/19 06:49 neomycin Allergy Rash/Hives Verified 12/22/19 06:49 [From Neosporin ([id number])] phenylpropanolamine Allergy Unknown Verified 12/22/19 06:49 [From Dimetapp (brompheniramine-PPA)] polymyxin B Allergy Rash/Hives Verified 12/22/19 06:49 [From Neosporin ([id number])] povidone-iodine Allergy Unknown Verified 12/22/19 06:49 [From Betadine] soap [From Betadine] Allergy Unknown Verified 12/22/19 06:49 Sulfa (Sulfonamide Allergy Unknown Verified 12/22/19 06:49 Antibiotics) morphine AdvReac Hallucinati Verified 12/22/19 06:49 ons Sncfkiz-Zpy-Lkz Reductase AdvReac NOT SURE, Verified 12/22/19 06:49 Inhibitor STILL TAKES LIPITOR SILCONE Allergy Unknown Uncoded 12/22/19 06:49 Physical Exam Vitals: Vital Signs Temp Pulse Pulse Resp BP BP Pulse Ox 12/22/19 09:51 70 12/22/19 09:35 68 12/22/19 09:33 98.3 F 67 18 88/59 93 L 12/22/19 06:00 73 18 73/51 96 12/22/19 05:27 82 19 120/86 98 12/22/19 03:41 104/46 12/22/19 00:45 110 H 19 96/58 98 12/22/19 00:34 109/78 97 12/22/19 00:28 138 H 30 H 116/82 97 12/22/19 00:16 98.3 F 151 H 20 129/81 Intake and Output 12/21/19 12/22/19 12/22/19 22:59 06:59 14:59 Other: Weight 62.596 kg 62.596 kg Results CBC & Chem 7: 12/22/19 00:33 12/22/19 00:33 Labs: Abnormal Lab Results - Last 24 Hours (Table) 12/22/19 12/22/19 12/22/19 Range/Units 00:33 00:33 00:33 WBC 26.0 H (3.8-10.6) k/uL Neutrophils # 23.4 H (1.3-7.7) k/uL Sodium 135 L (137-145) mmol/L Potassium 5.4 H (3.5-5.1) mmol/L BUN 22 H (7-17) mg/dL Glucose 142 H (74-99) mg/dL Troponin I 0.101 H* (0.000-0.034) ng/mL 12/22/19 12/22/19 Range/Units 03:00 07:53 WBC (3.8-10.6) k/uL Neutrophils # (1.3-7.7) k/uL Sodium (137-145) mmol/L Potassium (3.5-5.1) mmol/L BUN (7-17) mg/dL Glucose (74-99) mg/dL Troponin I 0.222 H* 0.209 H* (0.000-0.034) ng/mL Thrombosis Risk Factor Assmnt - Choose All That Apply Any of the Below Risk Factors Present?: Yes Each Factor Represents 1 point: Abnormal pulmonary function (COPD), Heart failure (<1month), Obesity (BMI >25), Serious lung disease incl. pneumonia (< 1month) Other Risk Factors: Yes Each Risk Factor Represents 2 Points: Malignancy Each Risk Factor Represents 3 Points: Elevated anticardiolipin antibodies Other congenital or acquired thrombophilia - If yes, enter type in comment: No Thrombosis Risk Factor Assessment Total Risk Factor Score: 9 Thrombosis Risk Factor Assessment Level: High Risk
--- NOTE | 2019-12-23 05:00 | ECHOF ---
Referral Reason: MEASUREMENTS -------- HEIGHT: 127.0 cm WEIGHT: 62.6 kg BP: 73/51 IVSd: 0.7 cm (0.6 - 1.1) LVIDd: 5.4 cm (3.9 - 5.3) LVPWd: 1.0 cm (0.6 - 1.1) IVSs: 1.0 cm LVIDs: 4.9 cm LVPWs: 0.9 cm LAESV Index (A-L): 41.58 ml/m Ao Diam: 3.1 cm (2.0 - 3.7) AV Cusp: 1.4 cm (1.5 - 2.6) LA Diam: 2.9 cm (2.7 - 3.8) MV E Gordon: 0.65 m/s MV DecT: 140 ms MV A Gordon: 1.02 m/s MV E/A Ratio: 0.64 RAP: 5.00 mmHg RVSP: 6.49 mmHg FINDINGS -------- This was a technically difficult study with suboptimal views. The left ventricular size is normal. Left ventricular wall thickness is normal. There is severe g lobal hypokinesis of LV . Overall left ventricular systolic function is severely impaired with, an EF between 20 - 25 %. Normal LAP Grade 1 Diastolic Dysfunction. The RV was not well visualized. LA is severely dilated >40 ml/m2 The right atrial size is normal. The aortic valve was not well visualized. The mitral valve is normal. Moderate mitral regurgitation is present. The tricuspid valve appears structurally normal. Mild tricuspid regurgitation present. Right vent ricular systolic pressure is normal at < 35 mmHg. The pulmonic valve was not well visualized. The aortic root size is normal. IVC Not well visulized. There is no pericardial effusion. CONCLUSIONS -------- 1. The left ventricular size is normal. 2. Left ventricular wall thickness is normal. 3. There is severe global hypokinesis of LV . 4. Overall left ventricular systolic function is severely impaired with, an EF between 20 - 25 %. 5. Normal LAP Grade 1 Diastolic Dysfunction. 6. LA is severely dilated >40 ml/m2 7. Moderate mitral regurgitation is present. 8. Mild tricuspid regurgitation present. 9. There is no pericardial effusion. PARTS COUNTERPERSON: Vera Milner RDCS
[2019-12-23] MEDS: PANTOPRAZOLE 40 MG TABLET PO SCH (06:51)
[2019-12-23] MEDS: SYMBICORT 80-4.5 MCG INHALER INHALATION SCH ×2 (08:28→19:43)
[2019-12-23] MEDS: IPRATROPIUM-ALBUTEROL 3 ML NEB INHALATION SCH ×4 (08:28→19:43)
[2019-12-23 08:47] LABS: Calcium 8.4 mg/dL (8.4-10.2); Potassium 3.9 mmol/L (3.5-5.1)
[2019-12-23] MEDS: ESCITALOPRAM 10 MG TAB PO SCH (09:18)
[2019-12-23] MEDS: GABAPENTIN 300 MG CAP PO SCH ×4 (09:18→20:25)
[2019-12-23] MEDS: FUROSEMIDE 10 MG/ML 4 ML VIAL IV SCH ×3 (09:18→23:02)
[2019-12-23] MEDS: METOPROLOL TARTRATE 12.5 MG TAB PO SCH ×2 (09:18→20:21)
[2019-12-23] MEDS: NICOTINE 21MG/24HR PATCH TRANSDERM SCH (09:18)
[2019-12-23] MEDS: ASPIRIN 81 MG PO SCH (09:18)
[2019-12-23] MEDS: predniSONE 10 MG TAB PO SCH (09:19)
[2019-12-23] MEDS: ATORVASTATIN 40 MG TAB PO SCH (09:19)
[2019-12-23] MEDS: CLOPIDOGREL 75 MG TAB PO SCH (09:19)
[2019-12-23] MEDS: FERROUS SULFATE 325 MG TAB PO SCH (09:19)
[2019-12-23 13:11] VITALS: BMI 31.2
[2019-12-23 13:23] LABS: HCT 38.3 % (34.0-46.0); HGB 11.7 gm/dL (11.4-16.0); Hypochromasia Slight; MCH 31.2 pg (25.0-35.0); MCHC 30.7 g/dL (31.0-37.0); MCV 101.7 fL (80.0-100.0); Macrocytosis Slight; Mean Platelet Volume 7.1; Platelet Count 177 k/uL (150-450); RBC 3.76 m/uL (3.80-5.40); RDW 14.5 % (11.5-15.5); WBC 11.7 k/uL (3.8-10.6)
--- NOTE | 2019-12-23 13:45 | XR ---
EXAMINATION TYPE: XR chest 1V portable DATE OF EXAM: 12/23/2019 CLINICAL HISTORY: chf. TECHNIQUE: Portable frontal view of the chest. COMPARISON: 12/22/2019 chest radiograph FINDINGS: Cardiomegaly. There is decreased pulmonary vascular congestion versus 12/22/2019. Small ri ght pleural effusion and right basilar airspace opacities redemonstrated. No pneumothorax. IMPRESSION: 1. Pulmonary vascular congestion is moderately decreased versus 12/22/2019. 2. Persistent small right pleural effusion.
--- NOTE | 2019-12-23 15:41 | P.PN ---
Subjective Progress Note Date: 12/23/19 Principal diagnosis: Elevated troponin/chest pain HISTORY OF PRESENTING ILLNESS This is a pleasant 79-year-old female past medical history significant for chronic systolic heart failure, peripheral vascular disease s/p bilateral above the knee amputation, COPD, anemia, hypertension and chronic nicotine dependence. 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 We have been asked to see in consultation for heart failure. She had an echocardiogram performed here last year revealing severely impaired LV systolic function with ejection fraction 20-25%, severe global hypokinesia, grade 3 diastolic dysfunction, aortic valve is trileaflet and moderately thickened with a mean gradient of 3 mmHg severe mitral regurgitation. She does not follow in the office. She presented to the hospital with symptoms of shortness of breath, chest pain, nausea and diaphoresis. She states her shortness of breath started last night after smoking a cigarette. It seemed to come on acutely. She felt diaphoretic at the time. EMS was notified on their arrival blood pressure was 195/105. She was given sublingual nitroglycerin which did drop her blood pre ssure. Her pain had subsided prior to arrival to the emergency department. Blood pressure on arrival was 129/81. EKG reveals wide complex tachycardia with rate related left bundle branch block. Chest x-ray reveals mild heart failure with small right pleural effusion and increased pulmonary congestion. PROGRESS NOTE 12/23/2019 Patient seen sitting up in bed with no acute distress. Patient currently receiving albuterol breathing treatment. Patient states cough and shortness of breath have mildly improved. Patient continue sinus rhythm on monitors, heart rate 74. Vital signs stable. Has low saturation of O2 on room air at 90%, currently on 2 L O2 NC. DX of chest 12/23/2019 shows decreased pulmonary vascular congestion and persistent small right pleural effusion with right basilar airspace opacity. Pt states she follows in the office with Dr. Silva. Echo 12/22/2019 shows severe global hypokinesis of left ventricle, EF 20-25%. Grade 1 diastolic dysfunction moderate MR. Mild TR. PHYSICAL EXAMINATION: HEENT: Head is atraumatic, normocephalic. Pupils are equal, round. Sclerae anicteric. Conjunctivae are clear. Mucous membranes of the mouth are moist. Neck is supple. There is no jugular venous distention. No carotid bruit is heard. No thyromegaly. LUNGS: Diminished to auscultation with wheezes and rhonchi. No chest wall tende rness is noted on palpation or with deep breathing. HEART: Regular rate and rhythm without murmurs, rubs or gallops. S1 and S2 heard. ABDOMEN: Abdominal exam revealed normal bowel sounds. The abdomen was soft, non- tender, and without masses, organomegaly, or appreciable enlargement of the abdominal aorta. EXTREMITIES: Pt is a bilateral lower extremity amputee. No femoral and pedal pulses. Radial pulse palpable. There was no cyanosis, clubbing or edema. VASCULAR: Radial pulses palpated. NEUROLOGIC: Patient is awake, alert and oriented x3. There were no obvious focal neurologic abnormalities. FINAL IMPRESSION: 1. RIGHT pleural effusion 2. Troponin elevated 3. Acute on Chronic Systolic Heart Failure 4. EF 20-25% with severe global hypokinesia 5. COPD exacerbation 6. Tobacco abuse PLAN: Increase Lasix to 40 mg every 8 hours IV. Patient to continue same all other medical/medication regime. Cardiology to follow along. Objective - Vital Signs Vital signs: Vital Signs Temp 98.1 F 12/23/19 04:00 Pulse 68 12/23/19 11:19 Resp 16 12/23/19 11:59 BP 107/53 12/23/19 07:30 Pulse Ox 90 L 12/23/19 08:00 Intake & Output 12/22/19 12/23/19 12/23/19 18:59 06:59 18:59 Intake Total 620 480 Output Total 1000 1160 700 Balance -380 -1160 -220 Weight 62.596 kg 46.5 kg 46.5 kg Intake: Oral 620 480 Output: Urine 1000 1160 700 Other: Voiding Method Bedpan Bedpan Bedpan # Voids 2 1 - Labs CBC & Chem 7: 12/23/19 12:45 12/23/19 07:29 Labs: Abnormal Lab Results - Last 24 Hours (Table) 12/23/19 12/23/19 Range/Units 07:29 12:45 WBC 11.7 H (3.8-10.6) k/uL RBC 3.76 L (3.80-5.40) m/uL MCV 101.7 H (80.0-100.0) fL MCHC 30.7 L (31.0-37.0) g/dL Sodium 135 L (137-145) mmol/L Chloride 96 L (98-107) mmol/L Carbon Dioxide 35 H (22-30) mmol/L BUN 28 H (7-17) mg/dL
--- NOTE | 2019-12-23 16:08 | P.PN ---
Subjective Patient is admitted for a his heart failure chronic systolic dysfunction EF of around 20-25% with acute exacerbation patient remains on IV Lasix patient has significant improvement on the chest x-ray findings of bilateral pleural effusions and pulmonary edema patient doesn't have any JVD today. But patient still still in the heart failure exacerbation patient will be continued on IV Lasix. Serum sodium remained stable. Constitutional: Denied any fatigue denied any fever. Cardio vascular: denied any chest pain, palpitations Gastrointestinal denied any nausea vomiting Pulmonary: Still short of breath Neurologic denied any new focal deficits All inpatient medications were reviewed and appropriate changes in these medications as dictated in the interval history and assessment and plan. Objective - Vital Signs Vital signs: Vital Signs Temp 98.1 F 12/23/19 04:00 Pulse 68 12/23/19 11:19 Resp 16 12/23/19 11:59 BP 107/53 12/23/19 07:30 Pulse Ox 90 L 12/23/19 08:00 Intake & Output 12/22/19 12/23/19 12/23/19 18:59 06:59 18:59 Intake Total 620 480 Output Total 1000 1160 700 Balance -380 -1160 -220 Weight 62.596 kg 46.5 kg 46.5 kg Intake: Oral 620 480 Output: Urine 1000 1160 700 Other: Voiding Method Bedpan Bedpan Bedpan # Voids 2 1 - Exam PHYSICAL EXAMINATION: GENERAL: The patient is alert and oriented x3, not in any acute distress. Well developed, well nourished. HEENT: Pupils are round and equally reacting to light. EOMI. No scleral icterus. No conjunctival pallor. Normocephalic, atraumatic. No pharyngeal erythema. No thyromegaly. CARDIOVASCULAR: S1 and S2 present. No murmurs, rubs, or gallops. PULMONARY: Chest is clear to auscultation, no wheezing or crackles. Mildly diminished air entry into bilateral lung westfall. ABDOMEN: Soft, nontender, nondistended, normoactive bowel sounds. No palpable organomegaly. MUSCULOSKELETAL: No joint swelling or deformity. EXTREMITIES: No cyanosis, clubbing, or pedal edema. NEUROLOGICAL: Gross neurological examination did not reveal any focal deficits. SKIN: No rashes. - Labs CBC & Chem 7: 12/23/19 12:45 12/23/19 07:29 Labs: Abnormal Lab Results - Last 24 Hours (Table) 12/23/19 12/23/19 Range/Units 07:29 12:45 WBC 11.7 H (3.8-10.6) k/uL RBC 3.76 L (3.80-5.40) m/uL MCV 101.7 H (80.0-100.0) fL MCHC 30.7 L (31.0-37.0) g/dL Sodium 135 L (137-145) mmol/L Chloride 96 L (98-107) mmol/L Carbon Dioxide 35 H (22-30) mmol/L BUN 28 H (7-17) mg/dL Assessment and Plan Plan: -Acute on chronic congestive heart failure exacerbation, systolic dysfunction EF 20-25 percent: Patient will be continued on IV Lasix still in heart failure e xacerbation -Acute COPD exacerbation in a current smoker, coding cessation counseling was provided patient has chronic hypoxic and hypercapnic respiratory failure secondary to COPD uses 2 L of onset at home. -Severe mitral regurgitation, nonrheumatic -Chronic nicotine dependence patient cigarette smoker -Chronic bilateral above-knee amputation -Chronic right lower extremity stump wound -Peripheral arterial disease -GERD -Hyperlipidemia -Left bundle-branch block -leukocytosis etiology of this leukocytosis is not clear there is no evidence of infection patient the white blood cell count did come down to 11,000 from 25,000
[2019-12-23] MEDS: LOSARTAN 25 MG TAB PO SCH (20:22)
[2019-12-23] MEDS: MELATONIN 5 MG TABLET PO PRN (23:02)
[2019-12-23] MEDS: ALPRAZolam 0.5 MG TAB PO PRN (23:02)
[2019-12-24] MEDS: PANTOPRAZOLE 40 MG TABLET PO SCH (06:30)
[2019-12-24] MEDS: SYMBICORT 80-4.5 MCG INHALER INHALATION SCH ×2 (08:09→20:06)
[2019-12-24] MEDS: IPRATROPIUM-ALBUTEROL 3 ML NEB INHALATION SCH ×4 (08:09→20:06)
[2019-12-24] MEDS ORDERED: bisacodyL 5 MG TABLET.DR PO STA (08:21)
[2019-12-24] MEDS: NICOTINE 21MG/24HR PATCH TRANSDERM SCH (08:55)
[2019-12-24] MEDS: FERROUS SULFATE 325 MG TAB PO SCH (08:55)
[2019-12-24] MEDS: GABAPENTIN 300 MG CAP PO SCH ×4 (08:55→20:21)
[2019-12-24] MEDS: METOPROLOL TARTRATE 12.5 MG TAB PO SCH ×2 (08:55→20:20)
[2019-12-24] MEDS: predniSONE 10 MG TAB PO SCH (08:55)
[2019-12-24] MEDS: ESCITALOPRAM 10 MG TAB PO SCH (08:55)
[2019-12-24] MEDS: ASPIRIN 81 MG PO SCH (08:55)
[2019-12-24] MEDS: ATORVASTATIN 40 MG TAB PO SCH (08:56)
[2019-12-24] MEDS: CLOPIDOGREL 75 MG TAB PO SCH (08:56)
[2019-12-24] MEDS: FUROSEMIDE 10 MG/ML 4 ML VIAL IV SCH (08:56)
--- NOTE | 2019-12-24 10:29 | PN ---
PROGRESS NOTE This lady has ejection fraction of 25%, came in with heart failure. She is breathing a little better today. Denies chest pain. Occasional lightheadedness. I will switch her from IV to oral Lasix to 60 mg in the morning, 40 in the afternoon and see how she does. Lungs are clear and her breathing is better. Vital signs stable. S1-S2 heard normally. Short systolic murmur noted. Lungs are clear. The rest of physical exam unchanged. She has bilateral above-knee amputations. We will obtain a BMP and also a BNP as well and continue current medications and switch her from IV to oral Lasix. MMODL / IJN: [id number] /
--- NOTE | 2019-12-24 13:27 | P.PN ---
Subjective Patient is admitted for a his heart failure chronic systolic dysfunction EF of around 20-25% with acute exacerbation patient remains on IV Lasix patient has significant improvement on the chest x-ray findings of bilateral pleural effusions and pulmonary edema patient doesn't have any JVD today. But patient still still in the heart failure exacerbation patient will be continued on IV Lasix. Serum sodium remained stable. 12/21/2019 Patient respiratory status improved off oxygen patient is on oral Lasix at this time patient will be discharged tomorrow to subacute rehabilitation Constitutional: Denied any fatigue denied any fever. Cardio vascular: denied any chest pain, palpitations Gastrointestinal denied any nausea vomiting Pulmonary: No shortness of breath Neurologic denied any new focal deficits All inpatient medications were reviewed and appropriate changes in these medications as dictated in the interval history and assessment and plan. Objective - Vital Signs Vital signs: Vital Signs Temp 98 F 12/24/19 11:38 Pulse 70 12/24/19 11:41 Resp 16 12/24/19 11:42 BP 99/55 12/24/19 11:38 Pulse Ox 94 L 12/24/19 11:38 Intake & Output 12/23/19 12/24/19 12/24/19 18:59 06:59 18:59 Intake Total 720 600 Output Total 700 1050 Balance 20 -1050 600 Weight 46.5 kg 45 kg Intake: Oral 720 600 Output: Urine 700 1050 Other: Voiding Method Bedpan Bedpan Bedpan # Voids 1 - Exam PHYSICAL EXAMINATION: GENERAL: The patient is alert and oriented x3, not in any acute distress. Well developed, well nourished. HEENT: Pupils are round and equally reacting to light. EOMI. No scleral icterus. No conjunctival pallor. Normocephalic, atraumatic. No pharyngeal erythema. No thyromegaly. CARDIOVASCULAR: S1 and S2 present. No murmurs, rubs, or gallops. PULMONARY: Chest is clear to auscultation, no wheezing or crackles. Mildly diminished air entry into bilateral lung westfall. ABDOMEN: Soft, nontender, nondistended, normoactive bowel sounds. No palpable organomegaly. MUSCULOSKELETAL: No joint swelling or deformity. EXTREMITIES: No cyanosis, clubbing, or pedal edema. NEUROLOGICAL: Gross neurological examination did not reveal any focal deficits. SKIN: No rashes. - Labs CBC & Chem 7: 12/23/19 12:45 12/23/19 07:29 Assessment and Plan Plan: -Acute on chronic congestive heart failure exacerbation, systolic dysfunction EF 20-25 percent: Improved now will restrict to oral Lasix will be discharged tomorrow to subacute rehab -Acute COPD exacerbation in a current smoker, smoking cessation counseling was provided patient has chronic hypoxic and hypercapnic respiratory failure secondary to COPD uses 2 L of onset at home. Did not bring any oxygen at this time. Respiratory status improved -Severe mitral regurgitation, nonrheumatic -Chronic nicotine dependence patient cigarette smoker -Chronic bilateral above-knee amputation -Chronic right lower extremity stump wound -Peripheral arterial disease -GERD -Hyperlipidemia -Left bundle-branch block -leukocytosis etiology of this leukocytosis is not clear there is no evidence of infection patient the white blood cell count did come down to 11,000 from 25,000
[2019-12-24] MEDS ORDERED: FUROSEMIDE 40 MG TAB PO SCH (16:00)
[2019-12-24] MEDS: LOSARTAN 25 MG TAB PO SCH (20:20)
[2019-12-24] MEDS: MELATONIN 5 MG TABLET PO PRN (23:06)
[2019-12-24] MEDS: ALPRAZolam 0.5 MG TAB PO PRN (23:06)
[2019-12-25 04:18] VITALS: RESP 18
[2019-12-25] MEDS: PANTOPRAZOLE 40 MG TABLET PO SCH (06:53)
[2019-12-25 08:11] LABS: Calcium 8.5 mg/dL (8.4-10.2)
[2019-12-25] MEDS ORDERED: FUROSEMIDE 20 MG TAB PO SCH (09:00)
[2019-12-25] MEDS ORDERED: ACETAMINOPHEN TAB 325 MG TAB PO STA (09:08)
[2019-12-25] MEDS: ATORVASTATIN 40 MG TAB PO SCH (09:16)
[2019-12-25] MEDS: METOPROLOL TARTRATE 12.5 MG TAB PO SCH (09:16)
[2019-12-25] MEDS: GABAPENTIN 300 MG CAP PO SCH (09:16)
[2019-12-25] MEDS: ASPIRIN 81 MG PO SCH (09:16)
[2019-12-25] MEDS: ESCITALOPRAM 10 MG TAB PO SCH (09:16)
[2019-12-25] MEDS: CLOPIDOGREL 75 MG TAB PO SCH (09:16)
[2019-12-25] MEDS: NICOTINE 21MG/24HR PATCH TRANSDERM SCH (09:16)
[2019-12-25] MEDS: FERROUS SULFATE 325 MG TAB PO SCH (09:17)
[2019-12-25] MEDS: predniSONE 10 MG TAB PO SCH (09:17)
[2019-12-25] MEDS: SYMBICORT 80-4.5 MCG INHALER INHALATION SCH (09:42)
[2019-12-25] MEDS: IPRATROPIUM-ALBUTEROL 3 ML NEB INHALATION SCH ×2 (09:42→13:15)
[2019-12-25 11:15] VITALS: BP 118/54; TEMP 98.1
--- NOTE | 2019-12-25 12:25 | P.DS ---
Providers Date of admission: 12/22/19 01:40 Attending physician: Greg Day Consults: 12/22/19 01:36 Consult Physician Routine Consulting Provider: Oziel Hawkins Consult Reason/Comments: CHF exacerbation Do you want consulting provider notified?: Yes Primary care physician: Juan Miguel Orr [facility] Course: Patient is admitted for a his heart failure chronic systolic dysfunction EF of around 20-25% with acute exacerbation patient remains on IV Lasix patient has significant improvement on the chest x-ray findings of bilateral pleural effusions and pulmonary edema patient doesn't have any JVD today. But patient still still in the heart failure exacerbation patient will be continued on IV Lasix. Serum sodium remained stable. 12/24/2019 Patient respiratory status improved off oxygen patient is on oral Lasix at this time patient will be discharged tomorrow to subacute rehabilitation 12/25/2019 Patient is clinically doing well euvolemic at this time patient will be discharged to subacute rehabitation today. PHYSICAL EXAMINATION: GENERAL: The patient is alert and oriented x3, not in any acute distress. Well developed, well nourished. HEENT: Pupils are round and equally reacting to light. EOMI. No scleral icterus. No conjunctival pallor. Normocephalic, atraumatic. No pharyngeal erythema. No thyromegaly. CARDIOVASCULAR: S1 and S2 present. No murmurs, rubs, or gallops. PULMONARY: Chest is clear to auscultation, no wheezing or crackles. Mildly diminished air entry into bilateral lung [place]fall. ABDOMEN: Soft, nontender, nondistended, normoactive bowel sounds. No palpable organomegaly. MUSCULOSKELETAL: No joint swelling or deformity. EXTREMITIES: No cyanosis, clubbing, or pedal edema. NEUROLOGICAL: Gross neurological examination did not reveal any focal deficits. SKIN: No rashes. Assessment and Plan Plan: -Acute on chronic congestive heart failure exacerbation, systolic dysfunction EF 20-25 percent: Patient is only make and is being discharged tomorrow to subacute rehab -Acute COPD exacerbation in a current smoker, smoking cessation counseling was provided patient has chronic hypoxic and hypercapnic respiratory failure secon carlos manuel to COPD uses 2 L of onset at home. Did not bring any oxygen at this time. Respiratory status improved -Severe mitral regurgitation, nonrheumatic -Chronic nicotine dependence patient cigarette smoker -Chronic bilateral above-knee amputation -Chronic right lower extremity stump wound -Peripheral arterial disease -GERD -Hyperlipidemia -Left bundle-branch block -leukocytosis etiology of this leukocytosis is not clear there is no evidence of infection patient the white blood cell count did come down to normal from 25,000 Patient Condition at Discharge: Fair Plan - Discharge Summary Discharge Rx Participant: No New Discharge Prescriptions: New Metoprolol Tartrate [Lopressor] 12.5 mg PO BID tab Nitroglycerin Sl Tabs [Nitrostat] 0.4 mg SUBLINGUAL Q5M PRN #25 tab PRN Reason: Chest Pain Furosemide [Lasix] 60 mg PO DAILY tab Furosemide [Lasix] 40 mg PO 1600 tab Gabapentin [Neurontin] 600 mg PO TID #20 cap Losartan [Cozaar] 25 mg PO HS tab Continue Potassium Chloride ER [K-Dur 20] 20 meq PO DAILY Omeprazole [PriLOSEC] 20 mg PO DAILY@0600 Ipratropium-Albuterol Nebulize [Duoneb 0.5 mg-3 mg/3 ml Soln] 3 ml INHALATION RT-QID Ferrous Sulfate [Iron (65 MG Elemental)] 325 mg PO DAILY Escitalopram Oxalate [Lexapro] 10 mg PO DAILY Clopidogrel Bisulfate [Plavix] 75 mg PO DAILY Atorvastatin [Lipitor] 40 mg PO HS Aspirin EC [Ecotrin Low Dose] 81 mg PO DAILY Fluticasone/Salmeterol [Advair 250-50 Diskus] 1 puff INHALATION RT-BID ALPRAZolam [Xanax] 0.5 mg PO BID PRN #6 tab PRN Reason: Anxiety Melatonin 5 mg PO HS PRN PRN Reason: Insomnia Docusate [Colace] 100 mg PO DAILY PRN PRN Reason: Constipation Gabapentin 600 mg PO HS Hydrocodone/Acetaminophen [Dorris 5-325] 1 tab PO Q8H PRN #10 tab PRN Reason: Pain Discontinued Furosemide [Lasix] 40 mg PO BID@0600,1400 Metoprolol Tartrate [Lopressor] 25 mg PO BID lisinopriL [Zestril] 2.5 mg PO DAILY Discharge Medication List Aspirin EC [Ecotrin Low Dose] 81 mg PO DAILY 12/02/18 [History] Atorvastatin [Lipitor] 40 mg PO HS 12/02/18 [History] Clopidogrel Bisulfate [Plavix] 75 mg PO DAILY 12/02/18 [History] Escitalopram Oxalate [Lexapro] 10 mg PO DAILY 12/02/18 [History] Ferrous Sulfate [Iron (65 MG Elemental)] 325 mg PO DAILY 12/02/18 [History] Fluticasone/Salmeterol [Advair 250-50 Diskus] 1 puff INHALATION RT-BID 12/02/18 [History] Ipratropium-Albuterol Nebulize [Duoneb 0.5 mg-3 mg/3 ml Soln] 3 ml INHALATION RT-QID 12/02/18 [History] Omeprazole [PriLOSEC] 20 mg PO DAILY@0600 12/02/18 [History] Potassium Chloride ER [K-Dur 20] 20 meq PO DAILY 12/02/18 [History] ALPRAZolam [Xanax] 0.5 mg PO BID PRN #6 tab 12/09/18 [Rx] Docusate [Colace] 100 mg PO DAILY PRN 12/22/19 [History] Gabapentin 600 mg PO HS 12/22/19 [History] Melatonin 5 mg PO HS PRN 12/22/19 [History] Metoprolol Tartrate [Lopressor] 12.5 mg PO BID tab 12/23/19 [Rx] Nitroglycerin Sl Tabs [Nitrostat] 0.4 mg SUBLINGUAL Q5M PRN #25 tab 12/23/19 [Rx] Furosemide [Lasix] 40 mg PO 1600 tab 12/25/19 [Rx] Furosemide [Lasix] 60 mg PO DAILY tab 12/25/19 [Rx] Gabapentin [Neurontin] 600 mg PO TID #20 cap 12/25/19 [Rx] Hydrocodone/Acetaminophen [Dorris 5-325] 1 tab PO Q8H PRN #10 tab 12/25/19 [Rx] Losartan [Cozaar] 25 mg PO HS tab 12/25/19 [Rx] Follow up Appointment(s)/Referral(s): Oziel Hawkins MD [STAFF PHYSICIAN] - 01/01/20 3:45 pm (At [facility].) Juan Miguel Orr MD [Primary Care Provider] - (Please follow up with physician at [facility].) Patient Instructions/Handouts: Heart Failure (ER), Heart Healthy Diet (ED), Hypotension (ED) Discharge Disposition: HOME SELF-CARE
[2019-12-25 13:18] VITALS: PULSE 72
--- NOTE | 2019-12-25 13:47 | P.PN ---
Subjective HISTORY OF PRESENTING ILLNESS This is a pleasant 79-year-old female past medical history significant for chronic systolic heart failure, peripheral vascular disease s/p bilateral above the knee amputation, COPD, anemia, hypertension and chronic nicotine dependence. She follows in the office with Dr. Hawkins. She is seen and examined sitting up in bed in no acute distress. She denies chest pain, shortness of breath, dizziness or palpitations. She is complaining of a headache. Blood pressure 118/54 heart rate 82 afebrile and maintaining oxygen saturation on nasal cannula. Currently maintained on aspirin 81 mg daily, atorvastatin 40 mg daily, IV 75 mg daily, Lasix 60 mg in the morning and 40 mg in the afternoon, losartan 25 mg at bedtime and Lopressor 12.5 mg twice a day. PHYSICAL EXAMINATION CONSTITUTIONAL: No apparent distress. HEENT: Head is normocephalic. Pupils are equal, round. Sclerae anicteric. Mucous membranes of the mouth are moist. No JVD. No carotid bruit. CHEST EXAMINATION: Lungs are clear to auscultation. No chest wall tenderness is noted on palpation or with deep breathing. HEART EXAMINATION: Regular rate and rhythm. S1, S2 heard. No murmurs, gallops or rub. EXTREMITIES: 2+ peripheral pulses, no lower extremity edema and no calf tenderness. ASSESSMENT Acute on chronic systolic heart failure Chronic troponin elevation of unclear significance, likely related to tachycardia Hyperkalemia Peripheral vascular disease s/p bilateral AKA COPD Hypertension Dyslipidemia Chronic nicotine dependence PLAN Stable on current medical regimen. Follow-up with Dr. Hawkins upon discharge. Nurse Practitioner note has been reviewed, I agree with a documented findings and plan of care. Patient was seen and examined. Objective - Vital Signs Vital signs: Vital Signs Temp 98.1 F 12/25/19 09:00 Pulse 72 12/25/19 13:29 Resp 18 12/25/19 09:00 BP 118/54 12/25/19 09:00 Pulse Ox 95 12/25/19 09:00 Intake & Output 12/24/19 12/25/19 12/25/19 18:59 06:59 18:59 Intake Total 1500 480 Output Total 1400 Balance 1500 -1400 480 Weight 41 kg Intake: Oral 1500 480 Output: Urine 1400 Other: Voiding Method Bedpan Bedpan Bedpan # Voids 1 - Labs CBC & Chem 7: 12/23/19 12:45 12/25/19 07:30 Labs: Abnormal Lab Results - Last 24 Hours (Table) 12/25/19 Range/Units 07:30 Sodium 136 L (137-145) mmol/L Carbon Dioxide 31 H (22-30) mmol/L BUN 36 H (7-17) mg/dL Glucose 62 L (74-99) mg/dL
== END 2019-12-25 15:26 | disposition home or self-care (01) ==
LOC: EC 00:14 → 3SCARD 01:40
PROVIDERS: ADMIT Hospitalist; ATTEND Hospitalist
DX: I16.1 Hypertensive emergency (principal); R77.8 Other specified abnormalities of plasma proteins; I11.0 Hypertensive heart disease with heart failure; I50.22 Chronic systolic (congestive) heart failure; I10 Essential (primary) hypertension; K21.9 Gastro-esophageal reflux disease without esophagitis; I73.9 Peripheral vascular disease, unspecified; G62.9 Polyneuropathy, unspecified; Z89.612 Acquired absence of left leg above knee; Z89.611 Acquired absence of right leg above knee; F17.210 Nicotine dependence, cigarettes, uncomplicated; I34.0 Nonrheumatic mitral (valve) insufficiency; I25.10 Atherosclerotic heart disease of native coronary artery without angina pectoris; J44.9 Chronic obstructive pulmonary disease, unspecified; Z86.73 Personal history of transient ischemic attack (TIA), and cerebral infarction without residual deficits; Z23 Encounter for immunization; E78.5 Hyperlipidemia, unspecified; M19.90 Unspecified osteoarthritis, unspecified site; Z87.01 Personal history of pneumonia (recurrent); K44.9 Diaphragmatic hernia without obstruction or gangrene; Z87.11 Personal history of peptic ulcer disease; E46 Unspecified protein-calorie malnutrition; G47.00 Insomnia, unspecified; Z90.710 Acquired absence of both cervix and uterus; Z98.890 Other specified postprocedural states; Z98.42 Cataract extraction status, left eye; Z98.41 Cataract extraction status, right eye; Z96.1 Presence of intraocular lens; F17.200 Nicotine dependence, unspecified, uncomplicated; Z81.8 Family history of other mental and behavioral disorders; Z83.3 Family history of diabetes mellitus; Z82.61 Family history of arthritis; Z84.2 Family history of other diseases of the genitourinary system; Z79.02 Long term (current) use of antithrombotics/antiplatelets; Z79.82 Long term (current) use of aspirin; Z79.51 Long term (current) use of inhaled steroids; Z79.899 Other long term (current) drug therapy; Z88.1 Allergy status to other antibiotic agents; Z88.3 Allergy status to other anti-infective agents; Z91.041 Radiographic dye allergy status; Z88.5 Allergy status to narcotic agent; Z88.2 Allergy status to sulfonamides; Z88.8 Allergy status to other drugs, medicaments and biological substances; Z91.048 Other nonmedicinal substance allergy status; Z91.09 Other allergy status, other than to drugs and biological substances
CPT/HCPCS: 96376 ×3; 93005 ×2; 96374; 96375; 99291; 36415; 94660; 94640 ×8; 83880 ×2; 80053; 80048 ×2; 83735; 84484; 85025; 85027; 85610; 85730; 71045 ×2; 90686; G0378 ×4; C8929; G0008; S4990 ×4; J1940 ×3; J2405; J7512 ×4; Q9950; 93306

== ENCOUNTER 2020-01-05 23:04 | Inpatient (IN) | payer MEDICARE, OTHER ==
[2020-01-05] MEDS ORDERED: NITROGLYCERIN SL TABS 0.4 MG TAB SUBLINGUAL STA ×2 (23:10→23:13)
--- NOTE | 2020-01-05 23:28 | ED ---
SOB HPI - General Chief Complaint: Shortness of Breath Stated Complaint: MICAH Time Seen by Provider: 01/05/20 23:06 Source: EMS Mode of arrival: EMS Limitations: no limitations - History of Present Illness Initial Comments: this patient is an 79-year-old woman transferred here from half-way after she became acutely short of breath. Patient states that she had been attempting to clean her room when she noticed she was developing shortness of breath. The patient had a similar episode to this nearly 2 weeks ago and was found to be in congestive heart failure. She states that she asked the nurses at the facility to give her nitroglycerin, and she states that after while he did but this did not seem to improve things. EMS was called and placed patient on CPAP is starting to have some improvement. Patient denies fever or chills. No productive cough. No chest pain. No change in urination. MD Complaint: shortness of breath, cough -: minutes(s) Severity scale (1-10): 0 Consistency: constant Improves With: oxygen, upright position Worsens With: lying flat Known History Of: congestive heart failure Context: other Associated Symptoms: orthopnea Treatments Prior to Arrival: oxygen, bronchodilator - Related Data Home Oxygen Therapy: No Home Medications Medication Instructions Recorded Confirmed Aspirin EC [Ecotrin Low Dose] 81 mg PO DAILY@0800 12/02/18 01/05/20 Atorvastatin [Lipitor] 40 mg PO HS@199912/02/18 01/05/20 Clopidogrel Bisulfate [Plavix] 75 mg PO DAILY@0812/02/18 01/05/20 Escitalopram Oxalate [Lexapro] 10 mg PO DAILY@0812/02/18 01/05/20 Ferrous Sulfate [Iron (65 MG 325 mg PO DAILY@0812/02/18 01/05/20 Elemental)] Fluticasone/Salmeterol [Advair 1 puff INHALATION RT-BID@799,199912/02/18 01/05/20 250-50 Diskus] Ipratropium-Albuterol Nebulize 3 ml INHALATION RT-QID 12/02/18 01/05/20 [Duoneb 0.5 mg-3 mg/3 ml Soln] Omeprazole [PriLOSEC] 20 mg PO DAILY@0612/02/18 01/05/20 Potassium Chloride ER [K-Dur 20] 20 meq PO DAILY@0800 12/02/18 01/05/20 Docusate [Colace] 100 mg PO DAILY PRN 12/22/19 01/05/20 Melatonin 5 mg PO HS PRN 12/22/19 01/05/20 Furosemide [Lasix] 40 mg PO DAILY@1400 01/05/20 01/05/20 Furosemide [Lasix] 60 mg PO DAILY@0600 01/05/20 01/05/20 Gabapentin 600 mg PO HS@199901/05/20 01/05/20 Losartan [Cozaar] 25 mg PO HS@199901/05/20 01/05/20 Metoprolol Tartrate [Lopressor] 12.5 mg PO BID@799,199901/05/20 01/05/20 Previous Rx's Medication Instructions Recorded Nitroglycerin Sl Tabs [Nitrostat] 0.4 mg SUBLINGUAL Q5M PRN #25 tab 12/23/19 Hydrocodone/Acetaminophen [Cove 1 tab PO Q8H PRN #10 tab 12/25/19 5-325] Allergies Allergy/AdvReac Type Severity Reaction Status Date / Time bacitracin Allergy Rash/Hives Verified 01/05/20 23:36 [From Neosporin ([id number])] brompheniramine Allergy Unknown Verified 01/05/20 23:36 [From Dimetapp (brompheniramine-PPA)] cefpodoxime [From Vantin] Allergy Unknown Verified 01/05/20 23:36 ciprofloxacin [From Cipro] Allergy Unknown Verified 01/05/20 23:36 clindamycin [From Cleocin] Allergy Unknown Verified 01/05/20 23:36 diphenhydramine Allergy Swelling Verified 01/05/20 23:36 [From Benadryl] Iodinated Contrast Media Allergy Unknown Verified 01/05/20 23:36 iodine Allergy Swelling Verified 01/05/20 23:36 mercury (elemental) Allergy Unknown Verified 01/05/20 23:36 moxifloxacin [From Avelox] Allergy Anaphylaxis Verified 01/05/20 23:36 neomycin Allergy Rash/Hives Verified 01/05/20 23:36 [From Neosporin ([id number])] phenylpropanolamine Allergy Unknown Verified 01/05/20 23:36 [From Dimetapp (brompheniramine-PPA)] polymyxin B Allergy Rash/Hives Verified 01/05/20 23:36 [From Neosporin ([id number])] povidone-iodine Allergy Unknown Verified 01/05/20 23:36 [From Betadine] soap [From Betadine] Allergy Unknown Verified 01/05/20 23:36 Sulfa (Sulfonamide Allergy Unknown Verified 01/05/20 23:36 Antibiotics) morphine AdvReac Hallucinati Verified 01/05/20 23:36 ons Guyaizv-Fin-Xfh Reductase AdvReac NOT SURE, Verified 01/05/20 23:36 Inhibitor STILL TAKES LIPITOR SILCONE Allergy Unknown Uncoded 01/05/20 23:36 Review of Systems ROS Statement: Those systems with pertinent positive or pertinent negative responses have been documented in the HPI. ROS Other: All systems not noted in ROS Statement are negative. Constitutional: Denies: fever, chills Respiratory: Reports: cough, dyspnea. Denies: wheezes, hemoptysis Cardiovascular: Reports: palpitations, orthopnea. Denies: chest pain, syncope Gastrointestinal: Denies: abdominal pain, vomiting, diarrhea Genitourinary: Denies: dysuria, frequency, hematuria Musculoskeletal: Denies: back pain Skin: Denies: rash Neurological: Denies: headache, weakness Past Medical History Past Medical History: Blood Disorder, Coronary Artery Disease (CAD), Cancer, Chest Pain / Angina, Heart Failure, COPD, CVA/TIA, GERD/Reflux, Hyperlipidemia, Hypertension, Osteoarthritis (OA), Pneumonia, Respiratory Disorder, Rheumatoid Arthritis (RA), Vascular Disorder Additional Past Medical History / Comment(s): Pt states she was recently admitted to [facility] with pneumonia/bronchitis/pneumonia/exacerbation COPD and CHF per pt. Other hx: Bronchitis, oxygen at 2L/NC ATC, mitral valve regurgitation, TIAs, hiatal hernia, past gastric ulcer, PAD/bilateral AKAs, past chronic R stump wound, R caratid 100% blocked per pt, neuropathy bilateral hands, chronic back pain, psoriatic arthritis, L breast cancer with lumpectomy/radiation, UTIs, anemia, protein calorie malnutrition, insomnia History of Any Multi-Drug Resistant Organisms: None Reported Past Surgical History: Breast Surgery, Heart Catheterization, Hysterectomy, Orthopedic Surgery, Tonsillectomy Additional Past Surgical History / Comment(s): Aortagrams with runoffs, R leg B KA then AKA/skin graft to chronic wound R leg stump, L leg AKA, fem/fem bypass then removal of vascular device, bilateral caratid endartectomies, R breast lumpectomy, bilateral cataract removals/lens implants Past Anesthesia/Blood Transfusion Reactions: No Reported Reaction Past Psychological History: Anxiety, Depression Smoking Status: Current every day smoker Past Alcohol Use History: None Reported Past Drug Use History: None Reported - Past Family History Mother History Unknown: Yes Family Medical History: Dementia Additional Family Medical History / Comment(s): Mother of alzheimer's at the age of 85 yrs. Father History Unknown: Yes Family Medical History: CVA/TIA, Diabetes Mellitus, Osteoarthritis (OA) Additional Family Medical History / Comment(s): Father of a UTI in his 70s General Exam Limitations: no limitations General appearance: alert, in distress Head exam: Present: atraumatic, normocephalic Eye exam: Present: normal appearance. Absent: scleral icterus, conjunctival injection Neck exam: Present: normal inspection Respiratory exam: Present: respiratory distress (tachypnea with respiratory rate 38 on arrival), wheezes. Absent: rales, rhonchi, stridor Cardiovascular Exam: Present: tachycardia, systolic murmur. Absent: diastolic murmur, rubs, gallop GI/Abdominal exam: Present: soft. Absent: distended, tenderness, guarding, rebound, rigid, mass Extremities exam: Present: normal capillary refill. Absent: normal inspection (bilateral AKA) Back exam: Present: normal inspection. Absent: CVA tenderness (R), CVA tenderness (L) Neurological exam: Present: alert Skin exam: Present: warm, intact, normal color, diaphoretic. Absent: rash Course Vital Signs 01/05/20 01/05/20 01/05/20 23:08 23:11 23:36 Temperature 97.9 F Pulse Rate 138 H 122 H Pulse Rate [ Pulse Oximetery ] Respiratory 38 H 28 H Rate Blood Pressure 152/87 124/69 O2 Sat by Pulse 90 L 94 L Oximetry 01/06/20 01/06/20 01/06/20 00:16 00:43 01:05 Temperature 97.6 F Pulse Rate 96 Pulse Rate [ 97 Pulse Oximetery ] Respiratory 20 18 Rate Blood Pressure 122/67 O2 Sat by Pulse 95 90 L 94 L Oximetry Medical Decision Making - Medical Decision Making patient is an 79-year-old woman presenting with what appears to be hypertensive emergency/congestive heart failure. Patient given a total of 4 sublingual nitroglycerin by myself at the bedside while monitoring her pressure. patient also placed on BiPAP. The patient did begin to show improvement. the patient had resolution of the diaphoresis. Heart rate and blood pressure both improving. We were gradually able to decrease the FiO2 and to wean her from the BiPAP, to the nasal cannula. - Lab Data Result diagrams: 01/05/20 23:20 01/05/20 23:20 Lab Results 01/05/20 01/05/20 01/05/20 Range/Units 23:20 23:20 23:20 WBC 14.2 H (3.8-10.6) k/uL RBC 3.53 L (3.80-5.40) m/uL Hgb 12.6 (11.4-16.0) gm/dL Hct 35.4 (34.0-46.0) % MCV 100.3 H (80.0-100.0) fL MCH 35.7 H (25.0-35.0) pg MCHC 35.6 (31.0-37.0) g/dL RDW 14.0 (11.5-15.5) % Plt Count 334 (150-450) k/uL Neutrophils % 78 % Lymphocytes % 12 % Monocytes % 4 % Eosinophils % 4 % Basophils % 1 % Neutrophils # 11.1 H (1.3-7.7) k/uL Lymphocytes # 1.8 (1.0-4.8) k/uL Monocytes # 0.5 (0-1.0) k/uL Eosinophils # 0.6 (0-0.7) k/uL Basophils # 0.2 (0-0.2) k/uL Hypochromasia Slight PT 9.9 (9.0-12.0) sec INR 0.9 (<1.2) APTT 25.7 (22.0-30.0) sec Sodium (137-145) mmol/L Potassium (3.5-5.1) mmol/L Chloride (98-107) mmol/L Carbon Dioxide (22-30) mmol/L Anion Gap mmol/L BUN (7-17) mg/dL Creatinine (0.52-1.04) mg/dL Est GFR (CKD-EPI)AfAm (>60 ml/min/1.73 sqM) Est GFR (CKD-EPI)NonAf (>60 ml/min/1.73 sqM) Glucose (74-99) mg/dL Lactic Ac Sepsis Rflx Plasma Lactic Acid Fermin (0.7-2.0) mmol/L Calcium (8.4-10.2) mg/dL Magnesium (1.6-2.3) mg/dL Total Bilirubin (0.2-1.3) mg/dL AST (14-36) U/L ALT (4-34) U/L Alkaline Phosphatase (38-126) U/L Troponin I (0.000-0.034) ng/mL NT-Pro-B Natriuret Pep pg/mL Total Protein (6.3-8.2) g/dL Albumin (3.5-5.0) g/dL Urine Color Yellow Urine Appearance Clear (Clear) Urine pH 7.0 (5.0-8.0) Ur Specific [place] 1.013 (1.001-1.035) Urine Protein Negative (Negative) Urine Glucose (UA) Negative (Negative) Urine Ketones Negative (Negative) Urine Blood Negative (Negative) Urine Nitrite Negative (Negative) Urine Bilirubin Negative (Negative) Urine Urobilinogen <2.0 (<2.0) mg/dL Ur Leukocyte Esterase Negative (Negative) 01/05/20 01/05/20 01/05/20 Range/Units 23:20 23:20 23:20 WBC (3.8-10.6) k/uL RBC (3.80-5.40) m/uL Hgb (11.4-16.0) gm/dL Hct (34.0-46.0) % MCV (80.0-100.0) fL MCH (25.0-35.0) pg MCHC (31.0-37.0) g/dL RDW (11.5-15.5) % Plt Count (150-450) k/uL Neutrophils % % Lymphocytes % % Monocytes % % Eosinophils % % Basophils % % Neutrophils # (1.3-7.7) k/uL Lymphocytes # (1.0-4.8) k/uL Monocytes # (0-1.0) k/uL Eosinophils # (0-0.7) k/uL Basophils # (0-0.2) k/uL Hypochromasia PT (9.0-12.0) sec INR (<1.2) APTT (22.0-30.0) sec Sodium 136 L (137-145) mmol/L Potassium 5.2 H (3.5-5.1) mmol/L Chloride 101 (98-107) mmol/L Carbon Dioxide 27 (22-30) mmol/L Anion Gap 8 mmol/L BUN 26 H (7-17) mg/dL Creatinine 0.81 (0.52-1.04) mg/dL Est GFR (CKD-EPI)AfAm 80 (>60 ml/min/1.73 sqM) Est GFR (CKD-EPI)NonAf 69 (>60 ml/min/1.73 sqM) Glucose 164 H (74-99) mg/dL Lactic Ac Sepsis Rflx Plasma Lactic Acid Fermin 2.6 H* (0.7-2.0) mmol/L Calcium 8.8 (8.4-10.2) mg/dL Magnesium 1.9 (1.6-2.3) mg/dL Total Bilirubin 0.5 (0.2-1.3) mg/dL AST 33 (14-36) U/L ALT 18 (4-34) U/L Alkaline Phosphatase 104 (38-126) U/L Troponin I 0.034 (0.000-0.034) ng/mL NT-Pro-B Natriuret Pep pg/mL Total Protein 6.2 L (6.3-8.2) g/dL Albumin 3.5 (3.5-5.0) g/dL Urine Color Urine Appearance (Clear) Urine pH (5.0-8.0) Ur Specific [place] (1.001-1.035) Urine Protein (Negative) Urine Glucose (UA) (Negative) Urine Ketones (Negative) Urine Blood (Negative) Urine Nitrite (Negative) Urine Bilirubin (Negative) Urine Urobilinogen (<2.0) mg/dL Ur Leukocyte Esterase (Negative) 01/05/20 01/05/20 Range/Units 23:20 23:44 WBC (3.8-10.6) k/uL RBC (3.80-5.40) m/uL Hgb (11.4-16.0) gm/dL Hct (34.0-46.0) % MCV (80.0-100.0) fL MCH (25.0-35.0) pg MCHC (31.0-37.0) g/dL RDW (11.5-15.5) % Plt Count (150-450) k/uL Neutrophils % % Lymphocytes % % Monocytes % % Eosinophils % % Basophils % % Neutrophils # (1.3-7.7) k/uL Lymphocytes # (1.0-4.8) k/uL Monocytes # (0-1.0) k/uL Eosinophils # (0-0.7) k/uL Basophils # (0-0.2) k/uL Hypochromasia PT (9.0-12.0) sec INR (<1.2) APTT (22.0-30.0) sec Sodium (137-145) mmol/L Potassium (3.5-5.1) mmol/L Chloride (98-107) mmol/L Carbon Dioxide (22-30) mmol/L Anion Gap mmol/L BUN (7-17) mg/dL Creatinine (0.52-1.04) mg/dL Est GFR (CKD-EPI)AfAm (>60 ml/min/1.73 sqM) Est GFR (CKD-EPI)NonAf (>60 ml/min/1.73 sqM) Glucose (74-99) mg/dL Lactic Ac Sepsis Rflx Y Plasma Lactic Acid Fermin (0.7-2.0) mmol/L Calcium (8.4-10.2) mg/dL Magnesium (1.6-2.3) mg/dL Total Bilirubin (0.2-1.3) mg/dL AST (14-36) U/L ALT (4-34) U/L Alkaline Phosphatase (38-126) U/L Troponin I (0.000-0.034) ng/mL NT-Pro-B Natriuret Pep 24962 pg/mL Total Protein (6.3-8.2) g/dL Albumin (3.5-5.0) g/dL Urine Color Urine Appearance (Clear) Urine pH (5.0-8.0) Ur Specific [place] (1.001-1.035) Urine Protein (Negative) Urine Glucose (UA) (Negative) Urine Ketones (Negative) Urine Blood (Negative) Urine Nitrite (Negative) Urine Bilirubin (Negative) Urine Urobilinogen (<2.0) mg/dL Ur Leukocyte Esterase (Negative) - EKG Data -: EKG Interpreted by Me EKG shows normal: sinus rhythm, axis (left axis deviation), intervals (IA interval 144 ms, normal QTC 494 ms, normal QRS duration 136 ms, prolonged consistent with the left bundle-branch block), QRS complexes (Left bundle-branch block pattern) Rate: tachycardia (rate approximately 130 bpm) Critical Care Time Critical Care Time: Yes (40 minutes) Disposition Clinical Impression: Hypertensive emergency, CHF (congestive heart failure) Disposition: ADMITTED IP TO THIS [facility] Condition: Serious
[2020-01-05 23:30] LABS: Basophils # (A) 0.2 k/uL (0-0.2); Basophils % (A) 1 %; Eosinophils # (A) 0.6 k/uL (0-0.7); Eosinophils % (A) 4 %; HCT 35.4 % (34.0-46.0); HGB 12.6 gm/dL (11.4-16.0); Hypochromasia Slight; Lymphocytes # (A) 1.8 k/uL (1.0-4.8); Lymphocytes % (A) 12 %; MCH 35.7 pg (25.0-35.0); MCHC 35.6 g/dL (31.0-37.0); MCV 100.3 fL (80.0-100.0); Mean Platelet Volume 7.1; Monocytes # (A) 0.5 k/uL (0-1.0); Monocytes % (A) 4 %; Neutrophils # (A) 11.1 k/uL (1.3-7.7); Neutrophils % (A) 78 %; Platelet Count 334 k/uL (150-450); RBC 3.53 m/uL (3.80-5.40); WBC 14.2 k/uL (3.8-10.6)
[2020-01-05 23:39] LABS: Albumin 3.5 g/dL (3.5-5.0); Calcium 8.8 mg/dL (8.4-10.2); Magnesium 1.9 mg/dL (1.6-2.3); Potassium 5.2 mmol/L (3.5-5.1); Total Bilirubin 0.5 mg/dL (0.2-1.3); Total Protein 6.2 g/dL (6.3-8.2)
[2020-01-05 23:42] LABS: Appearance,Urine Clear (Clear); Bilirubin,Urine Negative (Negative); Blood,Urine Negative (Negative); Color,Urine Yellow; Glucose,Urine (UA) Negative (Negative); INR 0.9 (<1.2); Ketones,Urine Negative (Negative); Leukocyte Esterase,Urine Negative (Negative); Nitrite,Urine Negative (Negative); Partial Thromboplastin Time 25.7 sec (22.0-30.0); Protein,Urine Negative (Negative); Prothrombin Time 9.9 sec (9.0-12.0); Specific Gravity,Urine 1.013 (1.001-1.035); Urobilinogen,Urine <2.0 mg/dL (<2.0)
[2020-01-05] MEDS ORDERED: FUROSEMIDE 10 MG/ML 4 ML VIAL IV STA (23:56)
--- NOTE | 2020-01-05 23:59 | XR ---
EXAMINATION TYPE: XR chest 1V portable DATE OF EXAM: 01/05/2020 COMPARISON: 12/23/2019 HISTORY: Short of breath TECHNIQUE: FINDINGS: There is pulmonary edema. Heart is probably enlarged. There are chest leads. There is blunt ing of the costophrenic angles. IMPRESSION: Pulmonary edema and pleural fluid probably due to heart failure. Edema is mostly new comp ared to old exam. Right lower lobe pneumonia is possible.
[2020-01-06] MEDS: FUROSEMIDE 10 MG/ML 4 ML VIAL IV SCH ×2 (00:24→11:58)
[2020-01-06] MEDS: ASPIRIN 81 MG PO SCH (08:34)
[2020-01-06] MEDS: CLOPIDOGREL 75 MG TAB PO SCH (08:34)
[2020-01-06] MEDS: SYMBICORT 80-4.5 MCG INHALER INHALATION SCH ×2 (09:11→20:09)
[2020-01-06 10:58] VITALS: BMI 23.8
[2020-01-06] MEDS: METOPROLOL TARTRATE 12.5 MG TAB PO SCH ×2 (11:58→20:27)
--- NOTE | 2020-01-06 13:59 | P.CRDCN ---
History of Present Illness Consult date: 01/06/20 History of present illness: HISTORY OF PRESENTING ILLNESS This is an 79-year-old female patient of Dr. Hawkins with past medical history significant of chronic systolic heart failure, peripheral vascular disease s/p bilateral above the knee amputation, COPD, anemia, hypertension and chronic nicotine dependence. Patient was recently hospitalized for acute on chronic systolic heart failure and discharged to [facility] on December 24. Echocardiogram at that time revealed EF of 20-25%, moderate mitral regurgitation, mild tricuspid regurgitation. [facility] the [facility] due to shortness of breath. She was given nitroglycerin which did not seem to improve her symptoms. EMS was called the patient was placed on CPAP with some improvement. No fever or chills. No productive cough. No chest pain. Initial heart rate was 138, blood pressure 152/87, pulse ox 90% on oxygen. Afebrile. Patient was given 4 sublingual nitroglycerin in the emergency center and placed on BiPAP with improvement of her heart rate and blood pressure. WBC was 14.2, hemoglobin 12.6. Potassium 5.2, BUN 26 and creatinine 0.81. Blood sugar 164. Lactic acid 2.6. Troponin 0.034. ProBNP 10,000. EKG is a wide complex tachycardia with left bundle branch block at rate of 130. Chest x-ray reveals pulmonary edema and pleural fluid probably due to heart failure. Edema is mostly new compared to old exam. Right lower lobe pneumonia is possible. 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 REVIEW OF SYSTEMS At the time of my exam, limited due to Covid testing: CONSTITUTIONAL: Denies fever or chills. CARDIOVASCULAR: Denies chest pain, reports shortness of breath, orthopnea, PND or palpitations. RESPIRATORY: Denies cough. GASTROINTESTINAL: Denies abdominal pain, diarrhea, constipation, nausea or vomiting. MUSCULOSKELETAL: Denies myalgias. NEUROLOGIC: Denies numbness, tingling or weakness. ENDOCRINE: Denies fatigue, weight change, polydipsia or polyurina. GENITOURINARY: Denies burning, hematuria or urgency with micturation. HEMATOLOGIC: Denies history of anemia or bleeding. PHYSICAL EXAMINATION Limited due to Covid isolation VS: Afebrile, heart rate 95, blood pressure 151/76, pulse ox 96% on 2 L nasal cannula. CONSTITUTIONAL: No apparent distress. HEENT: Head is normocephalic. NEUROLOGIC EXAMINATION: Patient is awake, alert. ASSESSMENT Presented with wide complex tachycardia with left bundle branch block, resolved Acute on chronic systolic heart failure Rule out Covid 19 infection Hyperkalemia Peripheral vascular disease s/p bilateral AKA COPD Hypertension Dyslipidemia Chronic nicotine dependence PLAN Continue losartan 25 mg at bedtime and lopressor at 12.5 mg BID Continue Plavix, Lipitor and aspirin No need to repeat echocardiogram Continue IV Lasix at 40 mg every 12 hours Monitor intake and output along with daily weights. Repeat renal function and electrolytes in the morning. Further recommendations to follow based on clinical course. Thank you kindly for this consultation. Nurse Practitioner note has been reviewed, I agree with a documented findings and plan of care. Patient was seen and examined. Past Medical History Past Medical History: Blood Disorder, Coronary Artery Disease (CAD), Cancer, Chest Pain / Angina, Heart Failure, COPD, CVA/TIA, GERD/Reflux, Hyperlipidemia, Hypertension, Osteoarthritis (OA), Pneumonia, Respiratory Disorder, Rheumatoid Arthritis (RA), Vascular Disorder Additional Past Medical History / Comment(s): Pt states she was recently admitted to [facility] with pneumonia/bronchitis/pneumonia/exacerbation COPD and CHF per pt. Other hx: Bronchitis, oxygen at 2L/NC ATC, mitral valve regurgitation, TIAs, hiatal hernia, past gastric ulcer, PAD/bilateral AKAs, past chronic R stump wound, R caratid 100% blocked per pt, neuropathy bilateral hands, chronic back pain, psoriatic arthritis, L breast cancer with lumpectomy/radiation, UTIs, anemia, protein calorie malnutrition, insomnia History of Any Multi-Drug Resistant Organisms: None Reported Past Surgical History: Breast Surgery, Heart Catheterization, Hysterectomy, Orthopedic Surgery, Tonsillectomy Additional Past Surgical History / Comment(s): Aortagrams with runoffs, R leg BKA then AKA/skin graft to chronic wound R leg stump, L leg AKA, fem/fem bypass then removal of vascular device, bilateral caratid endartectomies, R breast lumpectomy, bilateral cataract removals/lens implants Past Anesthesia/Blood Transfusion Reactions: No Reported Reaction Past Psychological History: Anxiety, Depression Smoking Status: Current every day smoker Past Alcohol Use History: None Reported Past Drug Use History: None Reported - Past Family History Mother History Unknown: Yes Family Medical History: Dementia Additional Family Medical History / Comment(s): Mother of alzheimer's at the age of 85 yrs. Father History Unknown: Yes Family Medical History: CVA/TIA, Diabetes Mellitus, Osteoarthritis (OA) Additional Family Medical History / Comment(s): Father of a UTI in his 70s Medications and Allergies Home Medications Medication Instructions Recorded Confirmed Type Aspirin EC [Ecotrin Low Dose] 81 mg PO DAILY@0800 12/02/18 01/05/20 History Atorvastatin [Lipitor] 40 mg PO HS@199912/02/18 01/05/20 History Clopidogrel Bisulfate [Plavix] 75 mg PO DAILY@0800 12/02/18 01/05/20 History Escitalopram Oxalate [Lexapro] 10 mg PO DAILY@0800 12/02/18 01/05/20 History Ferrous Sulfate [Iron (65 MG 325 mg PO DAILY@0800 12/02/18 01/05/20 History Elemental)] Fluticasone/Salmeterol [Advair 1 puff INHALATION RT-BID@08,199912/02/18 01/05/20 History 250-50 Diskus] Ipratropium-Albuterol Nebulize 3 ml INHALATION RT-QID 12/02/18 01/05/20 History [Duoneb 0.5 mg-3 mg/3 ml Soln] Omeprazole [PriLOSEC] 20 mg PO DAILY@0600 12/02/18 01/05/20 History Potassium Chloride ER [K-Dur 20] 20 meq PO DAILY@0800 12/02/18 01/05/20 History Docusate [Colace] 100 mg PO DAILY PRN 12/22/19 01/05/20 History Melatonin 5 mg PO HS PRN 12/22/19 01/05/20 History Nitroglycerin Sl Tabs [Nitrostat] 0.4 mg SUBLINGUAL Q5M PRN #25 tab 12/23/19 01/05/20 Rx Hydrocodone/Acetaminophen [[place] 1 tab PO Q8H PRN #10 tab 12/25/19 01/05/20 Rx 5-325] Furosemide [Lasix] 40 mg PO DAILY@1400 01/05/20 01/05/20 History Furosemide [Lasix] 60 mg PO DAILY@0601/05/20 01/05/20 History Gabapentin 600 mg PO HS@199901/05/20 01/05/20 History Losartan [Cozaar] 25 mg PO HS@199901/05/20 01/05/20 History Metoprolol Tartrate [Lopressor] 12.5 mg PO BID@01/05/20 01/05/20 History Allergies Allergy/AdvReac Type Severity Reaction Status Date / Time bacitracin Allergy Rash/Hives Verified 01/05/20 23:36 [From Neosporin ([id number])] brompheniramine Allergy Unknown Verified 01/05/20 23:36 [From Dimetapp (brompheniramine-PPA)] cefpodoxime [From Vantin] Allergy Unknown Verified 01/05/20 23:36 ciprofloxacin [From Cipro] Allergy Unknown Verified 01/05/20 23:36 clindamycin [From Cleocin] Allergy Unknown Verified 01/05/20 23:36 diphenhydramine Allergy Swelling Verified 01/05/20 23:36 [From Benadryl] Iodinated Contrast Media Allergy Unknown Verified 01/05/20 23:36 iodine Allergy Swelling Verified 01/05/20 23:36 mercury (elemental) Allergy Unknown Verified 01/05/20 23:36 moxifloxacin [From Avelox] Allergy Anaphylaxis Verified 01/05/20 23:36 neomycin Allergy Rash/Hives Verified 01/05/20 23:36 [From Neosporin ([id number])] phenylpropanolamine Allergy Unknown Verified 01/05/20 23:36 [From Dimetapp (brompheniramine-PPA)] polymyxin B Allergy Rash/Hives Verified 01/05/20 23:36 [From Neosporin ([id number])] povidone-iodine Allergy Unknown Verified 01/05/20 23:36 [From Betadine] soap [From Betadine] Allergy Unknown Verified 01/05/20 23:36 Sulfa (Sulfonamide Allergy Unknown Verified 01/05/20 23:36 Antibiotics) morphine AdvReac Hallucinati Verified 01/05/20 23:36 ons Hpcziun-Pdz-Hez Reductase AdvReac NOT SURE, Verified 01/05/20 23:36 Inhibitor STILL TAKES LIPITOR SILCONE Allergy Unknown Uncoded 01/05/20 23:36 Physical Exam Vitals: Vital Signs Temp Pulse Pulse Resp BP BP Pulse Ox 01/06/20 08:00 98.3 F 95 18 151/76 96 01/06/20 01:05 94 L 01/06/20 00:43 97.6 F 97 18 90 L 01/06/20 00:16 96 20 122/67 95 01/05/20 23:36 97.9 F 01/05/20 23:11 122 H 28 H 124/69 94 L 01/05/20 23:08 138 H 38 H 152/87 90 L Intake and Output 01/05/20 01/06/20 01/06/20 22:59 06:59 14:59 Intake Total 450 Output Total 200 Balance 450 -200 Intake: Oral 450 Output: Urine 200 Other: Voiding Method Bedpan # Voids 2 1 Weight 63 kg Results 01/05/20 23:20 01/05/20 23:20 Cardiac Enzymes 01/05/20 01/05/20 Range/Units 23:20 23:20 AST 33 (14-36) U/L Troponin I 0.034 (0.000-0.034) ng/mL Coagulation 01/05/20 Range/Units 23:20 PT 9.9 (9.0-12.0) sec APTT 25.7 (22.0-30.0) sec CBC 01/05/20 Range/Units 23:20 WBC 14.2 H (3.8-10.6) k/uL RBC 3.53 L (3.80-5.40) m/uL Hgb 12.6 (11.4-16.0) gm/dL Hct 35.4 (34.0-46.0) % Plt Count 334 (150-450) k/uL Comprehensive Metabolic Panel 01/05/20 Range/Units 23:20 Sodium 136 L (137-145) mmol/L Potassium 5.2 H (3.5-5.1) mmol/L Chloride 101 (98-107) mmol/L Carbon Dioxide 27 (22-30) mmol/L BUN 26 H (7-17) mg/dL Creatinine 0.81 (0.52-1.04) mg/dL Glucose 164 H (74-99) mg/dL Calcium 8.8 (8.4-10.2) mg/dL AST 33 (14-36) U/L ALT 18 (4-34) U/L Alkaline Phosphatase 104 (38-126) U/L Total Protein 6.2 L (6.3-8.2) g/dL Albumin 3.5 (3.5-5.0) g/dL Current Medications Generic Name Dose Route Start Last Admin Trade Name Freq PRN Reason Stop Dose Admin Hydrocodone Bitart/Acetaminophen 1 each 01/06/20 03:36 Hydrocodone/Apap 5-325mg 1 Each Tab PO Q8H PRN Pain Aspirin 81 mg 01/06/20 08:00 01/06/20 08:34 Aspirin 81 Mg PO 81 mg DAILY@0800 [facility] Administration Atorvastatin Calcium 40 mg 01/06/20 20:00 Atorvastatin 40 Mg Tab PO HS@1999 [facility] Budesonide/Formoterol Fumarate 2 puff 01/06/20 08:00 01/06/20 09:11 Symbicort 80-4.5 Mcg Inhaler INHALATION 2 puff RT-BID@ [facility] Administration Clopidogrel Bisulfate 75 mg 01/06/20 08:00 01/06/20 08:34 Clopidogrel 75 Mg Tab PO 75 mg DAILY@0800 [facility] Administration Furosemide 40 mg 01/06/20 00:15 01/06/20 00:24 Furosemide 10 Mg/Ml 4 Ml Vial IV Not Given Q12H [facility] Gabapentin 600 mg 01/06/20 20:00 Gabapentin 300 Mg Cap PO HS@1999 [facility] Melatonin 5 mg 01/06/20 03:35 Melatonin 5 Mg Tablet PO HS PRN Insomnia Sodium Chloride 10 ml 01/06/20 09:00 01/06/20 08:35 Sodium Chloride 0.9% Flush 10 Ml Syringe IV 10 ml BID [facility] Administration Intake and Output 01/05/20 01/06/20 01/06/20 22:59 06:59 14:59 Intake Total 450 Output Total 200 Balance 450 -200 Intake: Oral 450 Output: Urine 200 Other: Voiding Method Bedpan # Voids 2 1 Weight 63 kg 01/05/20 23:20 01/05/20 23:20
[2020-01-06] MEDS: ATORVASTATIN 40 MG TAB PO SCH (20:27)
[2020-01-06] MEDS: LOSARTAN 25 MG TAB PO SCH (20:27)
[2020-01-06] MEDS: GABAPENTIN 300 MG CAP PO SCH (20:27)
--- NOTE | 2020-01-06 22:34 | P.HPIM ---
History of Present Illness H&P Date: 01/06/20 Chief Complaint: SOB Ms. Urena is an 79-year-old female with a past medical history of coronary artery disease, congestive heart failure, COPD, GERD, hypertension, hyperlipidemia, rheumatoid arthritis, severe peripheral vascular disease status post bilateral AKA, past chronic right stump wound, chronic low back pain, psoriatic arthritis, breast cancer with lumpectomy status post radiation therapy [facility] the [facility] for the chief complaint of difficulty in breathing. Patient states that she has been cleaning her room and noticed that she was having more difficulty in breathing than her usual. Patient had a similar episode 2 weeks ago and she was admitted for exacerbation of chronic congestive heart failure. Patient has history of CHF with ejection fraction of 20 to 25% with moderate mitral regurgitation, mild tricuspid regurgitation. In the ER patient was found to have tachycardia with heart rate in 120s to 130s, tachypneic with respiration around 38, blood pressure 152/87. Initially she was placed on BiPAP for few hours And later on changed to nasal cannula. She had a chest x-ray showing pulmonary edema and pleural effusion and a possibility of right lower lobe pneumonia. EKG done in the ER showed sinus tachycardia with left bundle branch block. Review of Systems REVIEW OF SYSTEMS: CONSTITUTIONAL: No fever, no malaise, no fatigue. HEENT: No recent visual problems or hearing problems. Denied any sore throat. CARDIOVASCULAR: As per HPI PULMONARY: no cough, no hemoptysis. GASTROINTESTINAL: No diarrhea, no nausea, no vomiting, no abdominal pain. NEUROLOGICAL: No headaches, no weakness, no numbness. HEMATOLOGICAL: Denies any bleeding or petechiae. GENITOURINARY: Denies any burning micturition, frequency, or urgency. MUSCULOSKELETAL/RHEUMATOLOGICAL: Denies any joint pain, swelling, or any muscle pain. ENDOCRINE: Denies any polyuria or polydipsia. The rest of the 14-point review of systems is negative. Past Medical History Past Medical History: Blood Disorder, Coronary Artery Disease (CAD), Cancer, C hest Pain / Angina, Heart Failure, COPD, CVA/TIA, GERD/Reflux, Hyperlipidemia, Hypertension, Osteoarthritis (OA), Pneumonia, Respiratory Disorder, Rheumatoid Arthritis (RA), Vascular Disorder Additional Past Medical History / Comment(s): Pt states she was recently admitted to [facility] with pneumonia/bronchitis/pneumonia/exacerbation COPD and CHF per pt. Other hx: Bronchitis, oxygen at 2L/NC ATC, mitral valve regurgitation, TIAs, hiatal hernia, past gastric ulcer, PAD/bilateral AKAs, past chronic R stump wound, R caratid 100% blocked per pt, neuropathy bilateral hands, chronic back pain, psoriatic arthritis, L breast cancer with lumpectomy/radiation, UTIs, anemia, protein calorie malnutrition, insomnia History of Any Multi-Drug Resistant Organisms: None Reported Past Surgical History: Breast Surgery, Heart Catheterization, Hysterectomy, Orthopedic Surgery, Tonsillectomy Additional Past Surgical History / Comment(s): Aortagrams with runoffs, R leg BKA then AKA/skin graft to chronic wound R leg stump, L leg AKA, fem/fem bypass then removal of vascular device, bilateral caratid endartectomies, R breast lumpectomy, bilateral cataract removals/lens implants Past Anesthesia/Blood Transfusion Reactions: No Reported Reaction Past Psychological History: Anxiety, Depression Smoking Status: Current every day smoker Past Alcohol Use History: None Reported Past Drug Use History: None Reported - Past Family History Mother History Unknown: Yes Family Medical History: Dementia Additional Family Medical History / Comment(s): Mother of alzheimer's at the age of 85 yrs. Father History Unknown: Yes Family Medical History: CVA/TIA, Diabetes Mellitus, Osteoarthritis (OA) Additional Family Medical History / Comment(s): Father of a UTI in his 70s Medications and Allergies Home Medications Medication Instructions Recorded Confirmed Type Aspirin EC [Ecotrin Low Dose] 81 mg PO DAILY@0800 12/02/18 01/05/20 History Atorvastatin [Lipitor] 40 mg PO HS@199912/02/18 01/05/20 History Clopidogrel Bisulfate [Plavix] 75 mg PO DAILY@0800 12/02/18 01/05/20 History Escitalopram Oxalate [Lexapro] 10 mg PO DAILY@0800 12/02/18 01/05/20 History Ferrous Sulfate [Iron (65 MG 325 mg PO DAILY@79912/02/18 01/05/20 History Elemental)] Fluticasone/Salmeterol [Advair 1 puff INHALATION RT-BID@08,199912/02/18 01/05/20 History 250-50 Diskus] Ipratropium-Albuterol Nebulize 3 ml INHALATION RT-QID 12/02/18 01/05/20 History [Duoneb 0.5 mg-3 mg/3 ml Soln] Omeprazole [PriLOSEC] 20 mg PO DAILY@0600 12/02/18 01/05/20 History Potassium Chloride ER [K-Dur 20] 20 meq PO DAILY@0800 12/02/18 01/05/20 History Docusate [Colace] 100 mg PO DAILY PRN 12/22/19 01/05/20 History Melatonin 5 mg PO HS PRN 12/22/19 01/05/20 History Nitroglycerin Sl Tabs [Nitrostat] 0.4 mg SUBLINGUAL Q5M PRN #25 tab 12/23/19 01/05/20 Rx Hydrocodone/Acetaminophen [[place] 1 tab PO Q8H PRN #10 tab 12/25/19 01/05/20 Rx 5-325] Furosemide [Lasix] 40 mg PO DAILY@1400 01/05/20 01/05/20 History Furosemide [Lasix] 60 mg PO DAILY@59901/05/20 01/05/20 History Gabapentin 600 mg PO HS@199901/05/20 01/05/20 History Losartan [Cozaar] 25 mg PO HS@199901/05/20 01/05/20 History Metoprolol Tartrate [Lopressor] 12.5 mg PO BID@799,199901/05/20 01/05/20 History Allergies Allergy/AdvReac Type Severity Reaction Status Date / Time bacitracin Allergy Rash/Hives Verified 01/05/20 23:36 [From Neosporin ([id number])] brompheniramine Allergy Unknown Verified 01/05/20 23:36 [From Dimetapp (brompheniramine-PPA)] cefpodoxime [From Vantin] Allergy Unknown Verified 01/05/20 23:36 ciprofloxacin [From Cipro] Allergy Unknown Verified 01/05/20 23:36 clindamycin [From Cleocin] Allergy Unknown Verified 01/05/20 23:36 diphenhydramine Allergy Swelling Verified 01/05/20 23:36 [From Benadryl] Iodinated Contrast Media Allergy Unknown Verified 01/05/20 23:36 iodine Allergy Swelling Verified 01/05/20 23:36 mercury (elemental) Allergy Unknown Verified 01/05/20 23:36 moxifloxacin [From Avelox] Allergy Anaphylaxis Verified 01/05/20 23:36 neomycin Allergy Rash/Hives Verified 01/05/20 23:36 [From Neosporin ([id number])] phenylpropanolamine Allergy Unknown Verified 01/05/20 23:36 [From Dimetapp (brompheniramine-PPA)] polymyxin B Allergy Rash/Hives Verified 01/05/20 23:36 [From Neosporin ([id number])] povidone-iodine Allergy Unknown Verified 01/05/20 23:36 [From Betadine] soap [From Betadine] Allergy Unknown Verified 01/05/20 23:36 Sulfa (Sulfonamide Allergy Unknown Verified 01/05/20 23:36 Antibiotics) morphine AdvReac Hallucinati Verified 01/05/20 23:36 ons [id number]-Dzs-Rvs Reductase AdvReac NOT SURE, Verified 01/05/20 23:36 Inhibitor STILL TAKES LIPITOR SILCONE Allergy Unknown Uncoded 01/05/20 23:36 Physical Exam Vitals: Vital Signs Temp Pulse Pulse Resp BP BP Pulse Ox 01/06/20 15:05 98.5 F 99 16 141/75 97 01/06/20 11:50 92 16 143/73 98 01/06/20 08:00 98.3 F 95 18 151/76 96 01/06/20 01:05 94 L 01/06/20 00:43 97.6 F 97 18 90 L 01/06/20 00:16 96 20 122/67 95 01/05/20 23:36 97.9 F 01/05/20 23:11 122 H 28 H 124/69 94 L 01/05/20 23:08 138 H 38 H 152/87 90 L Intake and Output 01/06/20 01/06/20 01/06/20 06:59 14:59 22:59 Intake Total 450 236 618 Output Total 300 350 Balance 450 -64 268 Intake: Oral 450 236 618 Output: Urine 300 350 Other: Voiding Method Bedpan Bedpan # Voids 2 1 Weight 63 kg 63 kg PHYSICAL EXAMINATION: GENERAL: The patient is alert and oriented x3, not in any acute distress. Well developed, well nourished. HEENT: Pupils are round and equally reacting to light. EOMI. No scleral icterus. No conjunctival pallor. Normocephalic, atraumatic. No pharyngeal erythema. No t hyromegaly. CARDIOVASCULAR: S1 and S2 present. Tachycardia PULMONARY: Bilateral crackles heard. ABDOMEN: Soft, nontender, nondistended, normoactive bowel sounds. No palpable organomegaly. MUSCULOSKELETAL: No joint swelling or deformity. EXTREMITIES: Bilateral AKA . Stumps clean. NEUROLOGICAL: Gross neurological examination did not reveal any focal deficits. SKIN: No rashes. Results CBC & Chem 7: 01/05/20 23:20 01/05/20 23:20 Labs: Abnormal Lab Results - Last 24 Hours (Table) 01/05/20 01/05/20 01/05/20 Range/Units 23:20 23:20 23:20 WBC 14.2 H (3.8-10.6) k/uL RBC 3.53 L (3.80-5.40) m/uL MCV 100.3 H (80.0-100.0) fL MCH 35.7 H (25.0-35.0) pg Neutrophils # 11.1 H (1.3-7.7) k/uL Sodium 136 L (137-145) mmol/L Potassium 5.2 H (3.5-5.1) mmol/L BUN 26 H (7-17) mg/dL Glucose 164 H (74-99) mg/dL Plasma Lactic Acid [place] 2.6 H* (0.7-2.0) mmol/L Total Protein 6.2 L (6.3-8.2) g/dL 01/06/20 Range/Units 01:51 WBC (3.8-10.6) k/uL RBC (3.80-5.40) m/uL MCV (80.0-100.0) fL MCH (25.0-35.0) pg Neutrophils # (1.3-7.7) k/uL Sodium (137-145) mmol/L Potassium (3.5-5.1) mmol/L BUN (7-17) mg/dL Glucose (74-99) mg/dL Plasma Lactic Acid [place] 2.7 H* (0.7-2.0) mmol/L Total Protein (6.3-8.2) g/dL Assessment and Plan Assessment: ASSESSMENT Acute hypoxic respiratory failure secondary to CHF exacerbation Acute on chronic congestive heart failure Systolic heart failure with ejection fraction of 20 to 25% Lactic acidosis Hyperkalemia COPD GERD Hypertension Hyperlipidemia Rheumatoid arthritis Severe peripheral vascular disease status post bilateral AKA Chronic low back pain Psoriatic arthritis Breast cancer status post lumpectomy and radiation therapy PLAN: Patient headaches acute hypoxic respiratory failure secondary to acute CHF exacerbation as the proBNP level is 10,000. She has been started on IV Lasix twice daily. We will continue to monitor input and output and daily weights. Will order a rapid coronavirus PCR test, with isolation precautions. Cardiology has been consulted and following the patient. Further recommendations to follow depending on the progress of the patient.
[2020-01-06] MEDS: MELATONIN 5 MG TABLET PO PRN (22:51)
[2020-01-06] MEDS: HYDROcodone/APAP 5-325MG 1 EACH TAB PO PRN (22:51)
[2020-01-07] MEDS: FUROSEMIDE 10 MG/ML 4 ML VIAL IV SCH (02:34)
[2020-01-07] MEDS: PANTOPRAZOLE 40 MG TABLET PO SCH (06:21)
[2020-01-07 08:21] LABS: Calcium 8.6 mg/dL (8.4-10.2)
[2020-01-07 08:24] LABS: Potassium 4.3 mmol/L (3.5-5.1)
[2020-01-07] MEDS: SYMBICORT 80-4.5 MCG INHALER INHALATION SCH ×2 (08:37→19:56)
[2020-01-07 08:38] LABS: Basophils % (A) 1 %; Eosinophils # (A) 0.1 k/uL (0-0.7); Eosinophils % (A) 2 %; HCT 34.8 % (34.0-46.0); HGB 11.4 gm/dL (11.4-16.0); Lymphocytes # (A) 1.2 k/uL (1.0-4.8); Lymphocytes % (A) 14 %; MCH 31.8 pg (25.0-35.0); MCHC 32.7 g/dL (31.0-37.0); MCV 97.3 fL (80.0-100.0); Mean Platelet Volume 7.5; Monocytes # (A) 0.6 k/uL (0-1.0); Monocytes % (A) 6 %; Neutrophils # (A) 6.9 k/uL (1.3-7.7); Neutrophils % (A) 77 %; Platelet Count 215 k/uL (150-450); RBC 3.58 m/uL (3.80-5.40); WBC 8.9 k/uL (3.8-10.6)
[2020-01-07] MEDS: METOPROLOL TARTRATE 12.5 MG TAB PO SCH ×2 (08:57→21:10)
[2020-01-07] MEDS: CLOPIDOGREL 75 MG TAB PO SCH (08:58)
[2020-01-07] MEDS: ASPIRIN 81 MG PO SCH (08:58)
[2020-01-07] MEDS: FERROUS SULFATE 325 MG TAB PO SCH (08:58)
[2020-01-07] MEDS: ESCITALOPRAM 10 MG TAB PO SCH (08:58)
[2020-01-07] MEDS ORDERED: ENOXAPARIN 30 MG/0.3 ML SYRINGE SQ SCH (09:00)
--- NOTE | 2020-01-07 11:24 | P.PN ---
Subjective Progress Note Date: 01/07/20 HISTORY OF PRESENTING ILLNESS This is an 79-year-old female patient of Dr. Hawkins with past medical history significant of chronic systolic heart failure, peripheral vascular disease s/p bilateral above the knee amputation, COPD, anemia, hypertension and chronic nicotine dependence. Patient was recently hospitalized for acute on chronic systolic heart failure and discharged to [facility] on December 24. Echocardiogram at that time revealed EF of 20-25%, moderate mitral regurgitation, mild tricuspid regurgitation. Patient was brought in from the alf due to shortness of breath. She was given nitroglycerin which did not seem to improve her symptoms. EMS was called the patient was placed on CPAP with some improvement. No fever or chills. No productive cough. No chest pain. Initial heart rate was 138, blood pressure 152/87, pulse ox 90% on oxygen. Afebrile. Patient was given 4 sublingual nitroglycerin in the emergency center and placed on BiPAP with improvement of her heart rate and blood pressure. WBC was 14.2, hemoglobin 12.6. Potassium 5.2, BUN 26 and creatinine 0.81. Blood sugar 164. Lactic acid 2.6. Troponin 0.034. ProBNP 10,000. EKG is a wide complex tachycardia with left bundle branch block at rate of 130. Chest x-ray reveals pulmonary edema and pleural fluid probably due to heart failure. Edema is mostly new compared to old exam. Right lower lobe pneumonia is possible. 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 01/06: Patient states that she is feeling much better. Breathing status is better. She has had a few episodes of right lateral lower rib pain that has lasted a few minutes. Blood pressure is 120/69. Weight is down 2 kg. -500 mL fluid balance. COVID-19 came back not detected. Potassium 4.3, BUN 30 creatinine 0.8. PHYSICAL EXAMINATION VS: Afebrile, heart rate 95, blood pressure 151/76, pulse ox 96% on 2 L nasal cannula. CONSTITUTIONAL: Patient is resting in bed and appears to be comfortable and in no acute distress.. HEENT: Head is normocephalic. CHEST EXAMINATION: Lungs are clear to auscultation. No chest wall tenderness is noted on palpation or with deep breathing. HEART EXAMINATION: Regular rate and rhythm. S1, S2 heard. No murmurs, gallops or rub. ABDOMEN: Soft, nontender. Positive bowel sounds. EXTREMITIES: Bilateral amputation. NEUROLOGIC EXAMINATION: Patient is awake, alert and oriented x3. ASSESSMENT Presented with wide complex tachycardia with left bundle branch block, resolved Acute on chronic systolic heart failure Ruled out Covid 19 infection Hyperkalemia Peripheral vascular disease s/p bilateral AKA COPD Hypertension Dyslipidemia Chronic nicotine dependence PLAN Continue losartan 25 mg at bedtime and lopressor at 12.5 mg BID Continue Plavix, Lipitor and aspirin No need to repeat echocardiogram Transition IV Lasix to oral 80 mg twice daily Monitor intake and output along with daily weights. Repeat renal function and electrolytes in the morning. Follow-up with Dr. Hawkins following discharge. Thank you kindly for this consultation. Nurse Practitioner note has been reviewed, I agree with a documented findings and plan of care. Patient was seen and examined. Objective - Vital Signs Vital signs: Vital Signs Temp 98.2 F 01/07/20 07:35 Pulse 69 01/07/20 07:35 Resp 16 01/07/20 07:35 BP 120/69 01/07/20 07:35 Pulse Ox 98 01/07/20 07:35 Intake & Output 01/06/20 01/07/20 01/07/20 18:59 06:59 18:59 Intake Total 854 112 Output Total 650 500 200 Balance 204 -500 -88 Weight 63 kg 61 kg Intake: Oral 854 112 Output: Urine 650 500 200 Other: Voiding Method Bedpan Bedpan # Voids 1 - Labs CBC & Chem 7: 01/07/20 07:04 01/07/20 07:03 Labs: Abnormal Lab Results - Last 24 Hours (Table) 01/07/20 01/07/20 Range/Units 07:03 07:04 RBC 3.58 L (3.80-5.40) m/uL Sodium 136 L (137-145) mmol/L Carbon Dioxide 34 H (22-30) mmol/L BUN 30 H (7-17) mg/dL Glucose 119 H (74-99) mg/dL
[2020-01-07] MEDS: NICOTINE 14MG/24HR PATCH TRANSDERM SCH (12:08)
[2020-01-07] MEDS: FUROSEMIDE 80 MG TAB PO SCH (17:07)
[2020-01-07] MEDS ORDERED: ARTIFICIAL TEARS-HYPROMELLOSE DROPS 15 ML BTL BOTH EYES PRN (17:18)
[2020-01-07] MEDS: GABAPENTIN 300 MG CAP PO SCH (21:10)
[2020-01-07] MEDS: LOSARTAN 25 MG TAB PO SCH (21:10)
[2020-01-07] MEDS: ATORVASTATIN 40 MG TAB PO SCH (21:10)
[2020-01-07] MEDS: MELATONIN 5 MG TABLET PO PRN (23:24)
[2020-01-08 00:31] VITALS: RESP 18
--- NOTE | 2020-01-08 00:47 | P.PN ---
Subjective Progress Note Date: 01/07/20 Principal diagnosis: Acute hypoxic respiratory failure secondary to CHF exacerbation Ms. Urena is an 79-year-old female with a past medical history of coronary artery disease, congestive heart failure, COPD, GERD, hypertension, hyperlipidemia, rheumatoid arthritis, severe peripheral vascular disease status post bilateral AKA, past chronic right stump wound, chronic low back pain, psoriatic arthritis, breast cancer with lumpectomy status post radiation therapy sent in from the halfway for the chief complaint of difficulty in breathi ng. Patient states that she has been cleaning her room and noticed that she was having more difficulty in breathing than her usual. Patient had a similar episode 2 weeks ago and she was admitted for exacerbation of chronic congestive heart failure. Patient has history of CHF with ejection fraction of 20 to 25% with moderate mitral regurgitation, mild tricuspid regurgitation. In the ER patient was found to have tachycardia with heart rate in 120s to 130s, tachypneic with respiration around 38, blood pressure 152/87. Initially she was placed on BiPAP for few hours And later on changed to nasal cannula. She had a chest x-ray showing pulmonary edema and pleural effusion and a possibility of right lower lobe pneumonia. EKG done in the ER showed sinus tachycardia with left bundle branch block On 01/07/2020 -patient is sitting up in the bed appears to be no acute distress. Patient states that her difficulty in breathing is much better compared to yesterday. She denies having any chest pain or palpitations. No sputum production. No abdominal pain nausea vomiting or diarrhea. No dysuria or hematuria. On reviewing the patient's vitals temperature of 97.7, heart rate 70, respiratory 20, blood pressure 140/ 52, saturating at 96% on 2 L of nasal cannula. On reviewing the labs white count of 8.9, hemoglobin 9.4, platelets 215. Sodium 136, potassium 4.830, creatinine 0.80. Coronavirus PCR is negative. Active Medications Hydrocodone Bitart/Acetaminophen (Hydrocodone/Apap 5-325mg 1 Each Tab) 1 each PO Q8H PRN PRN Reason: Pain Last Admin: 01/06/20 22:51 Dose: 1 each Documented by: Artificial Tears (Artificial Tears-Hypromellose Drops 15 Ml Btl) 1 drops BOTH EYES QID PRN PRN Reason: Dry Eye(s) Last Admin: 01/07/20 18:50 Dose: 1 drops Documented by: Aspirin (Aspirin 81 Mg) 81 mg PO DAILY@08 [facility] Last Admin: 01/07/20 08:58 Dose: 81 mg Documented by: Atorvastatin Calcium (Atorvastatin 40 Mg Tab) 40 mg PO HS@1999 [facility] Last Admin: 01/07/20 21:10 Dose: 40 mg Documented by: Budesonide/Formoterol Fumarate (Symbicort 80-4.5 Mcg Inhaler) 2 puff INHALATION RT-BID@ [facility] Last Admin: 01/07/20 19:56 Dose: Not Given Documented by: Clopidogrel Bisulfate (Clopidogrel 75 Mg Tab) 75 mg PO DAILY@08 [facility] Last Admin: 01/07/20 08:58 Dose: 75 mg Documented by: Enoxaparin Sodium (Enoxaparin 40 Mg/0.4 Ml Syringe) 40 mg SQ DAILY [facility] Escitalopram Oxalate (Escitalopram 10 Mg Tab) 10 mg PO DAILY@08 [facility] Last Admin: 01/07/20 08:58 Dose: 10 mg Documented by: Ferrous Sulfate (Ferrous Sulfate 325 Mg Tab) 325 mg PO DAILY@799 [facility] Last Admin: 01/07/20 08:58 Dose: 325 mg Documented by: Furosemide (Furosemide 80 Mg Tab) 80 mg PO BID@0900,1600 [facility] Last Admin: 01/07/20 17:07 Dose: 80 mg Documented by: Gabapentin (Gabapentin 300 Mg Cap) 600 mg PO HS@1999 [facility] Last Admin: 01/07/20 21:10 Dose: 600 mg Documented by: Losartan Potassium (Losartan 25 Mg Tab) 25 mg PO HS@1999 [facility] Last Admin: 01/07/20 21:10 Dose: 25 mg Documented by: Melatonin (Melatonin 5 Mg Tablet) 5 mg PO HS PRN PRN Reason: Insomnia Last Admin: 01/07/20 23:24 Dose: 5 mg Documented by: Metoprolol Tartrate (Metoprolol Tartrate 12.5 Mg Tab) 12.5 mg PO BID@ [facility] Last Admin: 01/07/20 21:10 Dose: 12.5 mg Documented by: Nicotine (Nicotine 14mg/24hr Patch) 1 patch TRANSDERM DAILY [facility] Last Admin: 01/07/20 12:08 Dose: 1 patch Documented by: Pantoprazole Sodium (Pantoprazole 40 Mg Tablet) 40 mg PO DAILY@0600 [facility] Last Admin: 01/07/20 06:21 Dose: 40 mg Documented by: Pneumococcal Polyvalent Vaccine (Pneumococcal Vacc-Pneumovax 23 25 Mcg/0.5 Ml Vial) 25 mcg IM .ONCE ONE Stop: 01/08/20 08:01 Sodium Chloride (Sodium Chloride 0.9% Flush 10 Ml Syringe) 10 ml IV BID [place] Last Admin: 01/07/20 21:10 Dose: 10 ml Documented by: Objective - Vital Signs Vital signs: Vital Signs Temp 98.2 F 01/07/20 07:35 Pulse 65 01/07/20 11:30 Resp 16 01/07/20 11:30 BP 116/72 01/07/20 11:30 Pulse Ox 100 01/07/20 11:30 Intake & Output 01/06/20 01/07/20 01/07/20 18:59 06:59 18:59 Intake Total 854 312 Output Total 650 500 450 Balance 204 -500 -138 Weight 63 kg 61 kg Intake: Oral 854 312 Output: Urine 650 500 450 Other: Voiding Method Bedpan Bedpan Bedpan # Voids 1 - Exam PHYSICAL EXAMINATION: GENERAL: The patient is alert and oriented x3, not in any acute distress. Well developed, well nourished. HEENT: Pupils are round and equally reacting to light. EOMI. No scleral icterus. No conjunctival pallor. CARDIOVASCULAR: S1 and S2 present. Tachycardia PULMONARY: Bilateral crackles heard. ABDOMEN: Soft, nontender, nondistended, normoactive bowel sounds. No palpable organomegaly. MUSCULOSKELETAL: No joint swelling or deformity. EXTREMITIES: Bilateral AKA . Stumps clean. NEUROLOGICAL: Gross neurological examination did not reveal any focal deficits. SKIN: No rashes. - Labs CBC & Chem 7: 01/07/20 07:04 01/07/20 07:03 Labs: Abnormal Lab Results - Last 24 Hours (Table) 01/07/20 01/07/20 Range/Units 07:03 07:04 RBC 3.58 L (3.80-5.40) m/uL Sodium 136 L (137-145) mmol/L Carbon Dioxide 34 H (22-30) mmol/L BUN 30 H (7-17) mg/dL Glucose 119 H (74-99) mg/dL Assessment and Plan Assessment: ASSESSMENT Acute hypoxic respiratory failure secondary to CHF exacerbation Acute on chronic congestive heart failure Systolic heart failure with ejection fraction of 20 to 25% Lactic acidosis Hyperkalemia COPD GERD Hypertension Hyperlipidemia Rheumatoid arthritis Severe peripheral vascular disease status post bilateral AKA Chronic low back pain Psoriatic arthritis Breast cancer status post lumpectomy and radiation therapy PLAN: Patient showed significant improvement with IV Lasix, and IV Lasix has been changed to p.o. Lasix today per cardiology. Patient to be continued on losartan 25mg and metoprolol 12.5 mg p.o. twice daily has been added. Continue with the rest of her current medication regimen. Further recommendations to follow depending on the progress of the patient.
[2020-01-08] MEDS: HYDROcodone/APAP 5-325MG 1 EACH TAB PO PRN ×2 (03:21→20:40)
[2020-01-08] MEDS: PANTOPRAZOLE 40 MG TABLET PO SCH (06:11)
[2020-01-08] MEDS: SYMBICORT 80-4.5 MCG INHALER INHALATION SCH (07:54)
[2020-01-08] MEDS ORDERED: PNEUMOCOCCAL VACC-PNEUMOVAX 23 25 MCG/0.5 ML VIAL IM ONE (08:00)
[2020-01-08 08:24] LABS: Calcium 8.5 mg/dL (8.4-10.2)
[2020-01-08 08:28] LABS: Potassium 4.4 mmol/L (3.5-5.1)
[2020-01-08] MEDS: ESCITALOPRAM 10 MG TAB PO SCH (09:26)
[2020-01-08] MEDS: FERROUS SULFATE 325 MG TAB PO SCH (09:26)
[2020-01-08] MEDS: ENOXAPARIN 40 MG/0.4 ML SYRINGE SQ SCH (09:26)
[2020-01-08] MEDS: FUROSEMIDE 80 MG TAB PO SCH ×2 (09:26→17:00)
[2020-01-08] MEDS: ASPIRIN 81 MG PO SCH (09:26)
[2020-01-08] MEDS: METOPROLOL TARTRATE 12.5 MG TAB PO SCH ×2 (09:27→20:40)
[2020-01-08] MEDS: CLOPIDOGREL 75 MG TAB PO SCH (09:27)
[2020-01-08] MEDS: NICOTINE 14MG/24HR PATCH TRANSDERM SCH (09:27)
[2020-01-08] MEDS ORDERED: CALCIUM CARBONATE 500 MG CHEWABLE PO PRN (10:06)
--- NOTE | 2020-01-08 11:53 | P.PN ---
Subjective Progress Note Date: 01/08/20 This is an 79-year-old female patient of Dr. Hawkins with past medical history significant of chronic systolic heart failure, peripheral vascular disease s/p bilateral above the knee amputation, COPD, anemia, hypertension and chronic nicotine dependence. Patient was recently hospitalized for acute on chronic systolic heart failure and discharged to [facility] on December 24. Echocardiogram at that time revealed EF of 20-25%, moderate mitral regurgitation, mild tricuspid regurgitation. Patient was brought in from the shelter due to shortness of breath. Patient was noted to have a wide- complex tachycardia with a left bundle-branch block on admission, this is resolved. She was also treated for systolic congestive heart failure and is currently on by mouth Lasix. Patient was seen and examined this morning, overall she states that she feels like she has heartburn with associated mild nausea, states that she had some midepigastric discomfort through the night last night as well. Her blood pressure 127/70, 93/40, heart rate in the 60s, 96% on 2 L of oxygen. Sodium 136, potassium 4.4, BUN 32, creatinine 0.7. Objective - Vital Signs Vital signs: Vital Signs Temp 97.1 F L 01/08/20 09:31 Pulse 65 01/08/20 09:31 Resp 18 01/08/20 09:31 BP 93/45 01/08/20 09:31 Pulse Ox 96 01/08/20 09:31 Intake & Output 01/07/20 01/08/20 01/08/20 18:59 06:59 18:59 Intake Total 552 480 Output Total 600 1100 Balance -48 -620 Weight 63.5 kg Intake: Oral 552 480 Output: Urine 600 1100 Other: Voiding Method Bedpan Bedpan - Exam PHYSICAL EXAMINATION VS: Afebrile, heart rate 95, blood pressure 94/45, pulse ox 96% on 2 L nasal cannula. CONSTITUTIONAL: Patient is resting in bed and appears to be comfortable and in no acute distress.. HEENT: Head is normocephalic. CHEST EXAMINATION: Lungs westfall diminished air entry to the bases bilaterally . HEART EXAMINATION: Regular rate and rhythm. S1, S2 heard. Systolic murmur is heard ABDOMEN: Soft, nontender. Positive bowel sounds. EXTREMITIES: Bilateral amputation. NEUROLOGIC EXAMINATION: Patient is awake, alert and oriented x3. - Labs CBC & Chem 7: 11/08/20 07:04 01/08/20 07:22 Labs: Abnormal Lab Results - Last 24 Hours (Table) 01/08/20 Range/Units 07:22 Sodium 136 L (137-145) mmol/L Chloride 97 L (98-107) mmol/L Carbon Dioxide 33 H (22-30) mmol/L BUN 32 H (7-17) mg/dL Assessment and Plan Plan: ASSESSMENT AND PLAN #1 Wide complex tachycardia with left bundle branch block, resolved #2 Acute on chronic systolic heart failure #3 Ruled out Covid 19 infection #4 Hyperkalemia #5 Peripheral vascular disease s/p bilateral AKA #6 COPD #7 Hypertension #8 Dyslipidemia #9 Chronic nicotine dependence Plan Patient is currently on oral diuretics, we will repeat a chest x-ray today. Continue the rest of her medications. Add Aldactone 25 mg one tablet by mouth daily. DNP note has been reviewed, I agree with a documented findings and plan of care. Patient was seen and examined.
--- NOTE | 2020-01-08 14:13 | XR ---
EXAMINATION TYPE: XR chest 1V portable DATE OF EXAM: 01/08/2020 CLINICAL HISTORY: Difficulty breathing and CHF progress study. TECHNIQUE: Single AP portable upright view of the chest is obtained. COMPARISON: Chest x-ray from 3 days earlier FINDINGS: Improving interstitial edema and bilateral opacities from most recent study. Persistent sm all right pleural effusion. Cardiac silhouette size stable and mildly enlarged with atherosclerotic a eyal. Osseous structures remain demineralized. IMPRESSION: Improved interstitial edema and central vascular congestion. Persistent mild cardiomegaly with small right pleural effusion. Improved right basilar acute infiltrate and/or atelectasis.
--- NOTE | 2020-01-08 16:57 | P.PN ---
Subjective Progress Note Date: 01/08/20 Principal diagnosis: Acute hypoxic respiratory failure secondary to CHF exacerbation Ms. Urena is an 79-year-old female with a past medical history of coronary artery disease, congestive heart failure, COPD, GERD, hypertension, hyperlipidemia, rheumatoid arthritis, severe peripheral vascular disease status post bilateral AKA, past chronic right stump wound, chronic low back pain, psoriatic arthritis, breast cancer with lumpectomy status post radiation therapy sent in from the long term for the chief complaint of difficulty in breathi ng. Patient states that she has been cleaning her room and noticed that she was having more difficulty in breathing than her usual. Patient had a similar episode 2 weeks ago and she was admitted for exacerbation of chronic congestive heart failure. Patient has history of CHF with ejection fraction of 20 to 25% with moderate mitral regurgitation, mild tricuspid regurgitation. In the ER patient was found to have tachycardia with heart rate in 120s to 130s, tachypneic with respiration around 38, blood pressure 152/87. Initially she was placed on BiPAP for few hours And later on changed to nasal cannula. She had a chest x-ray showing pulmonary edema and pleural effusion and a possibility of right lower lobe pneumonia. EKG done in the ER showed sinus tachycardia with left bundle branch block On 01/07/2020 -patient is sitting up in the bed appears to be no acute distress. Patient states that her difficulty in breathing is much better compared to yesterday. She denies having any chest pain or palpitations. No sputum production. No abdominal pain nausea vomiting or diarrhea. No dysuria or hematuria. On reviewing the patient's vitals temperature of 97.7, heart rate 70, respiratory 20, blood pressure 140/ 52, saturating at 96% on 2 L of nasal cannula. On reviewing the labs white count of 8.9, hemoglobin 9.4, platelets 215. Sodium 136, potassium 4.830, creatinine 0.80. Coronavirus PCR is negative. On 01/08/2020 - patient states that last night was that of. She was having heartburn with mild nausea with epigastric discomfort. Patient denied having any nausea or vomiting. She states her breathing is improving. No cough or sputum production. On reviewing her vitals temperature 97.7, heart rate 60, respiratory 16, blood pressure 151-63, saturating at 99% on 2 L of nasal cannula. Labs from this morning showing sodium of 136, potassium 4.4, chloride 97, bicarbonate 33. BUN is 32, creatinine of 0.78. Active Medications Hydrocodone Bitart/Acetaminophen (Hydrocodone/Apap 5-325mg 1 Each Tab) 1 each P O Q8H PRN PRN Reason: Pain Last Admin: 01/08/20 03:21 Dose: 1 each Documented by: Artificial Tears (Artificial Tears-Hypromellose Drops 15 Ml Btl) 1 drops BOTH EYES QID PRN PRN Reason: Dry Eye(s) Last Admin: 01/07/20 18:50 Dose: 1 drops Documented by: Aspirin (Aspirin 81 Mg) 81 mg PO DAILY@08 [facility] Last Admin: 01/08/20 09:26 Dose: 81 mg Documented by: Atorvastatin Calcium (Atorvastatin 40 Mg Tab) 40 mg PO HS@1999 [facility] Last Admin: 01/07/20 21:10 Dose: 40 mg Documented by: Budesonide/Formoterol Fumarate (Symbicort 80-4.5 Mcg Inhaler) 2 puff INHALATION RT-BID@ [facility] Last Admin: 01/08/20 07:54 Dose: 2 puff Documented by: Calcium Carbonate/Glycine (Calcium Carbonate 500 Mg Chewable) 1,000 mg PO TID PRN PRN Reason: Heartburn Last Admin: 01/08/20 10:13 Dose: 1,000 mg Documented by: Clopidogrel Bisulfate (Clopidogrel 75 Mg Tab) 75 mg PO DAILY@08 [facility] Last Admin: 01/08/20 09:27 Dose: 75 mg Documented by: Enoxaparin Sodium (Enoxaparin 40 Mg/0.4 Ml Syringe) 40 mg SQ DAILY [facility] Last Admin: 01/08/20 09:26 Dose: 40 mg Documented by: Escitalopram Oxalate (Escitalopram 10 Mg Tab) 10 mg PO DAILY@0800 [facility] Last Admin: 01/08/20 09:26 Dose: 10 mg Documented by: Ferrous Sulfate (Ferrous Sulfate 325 Mg Tab) 325 mg PO DAILY@799 [facility] Last Admin: 01/08/20 09:26 Dose: 325 mg Documented by: Furosemide (Furosemide 80 Mg Tab) 80 mg PO BID@0900,1600 [facility] Last Admin: 01/08/20 09:26 Dose: 80 mg Documented by: Gabapentin (Gabapentin 300 Mg Cap) 600 mg PO HS@1999 [facility] Last Admin: 01/07/20 21:10 Dose: 600 mg Documented by: Losartan Potassium (Losartan 25 Mg Tab) 25 mg PO HS@1999 [facility] Last Admin: 01/07/20 21:10 Dose: 25 mg Documented by: Melatonin (Melatonin 5 Mg Tablet) 5 mg PO HS PRN PRN Reason: Insomnia Last Admin: 01/07/20 23:24 Dose: 5 mg Documented by: Metoprolol Tartrate (Metoprolol Tartrate 12.5 Mg Tab) 12.5 mg PO BID@ [facility] Last Admin: 01/08/20 09:27 Dose: 12.5 mg Documented by: Nicotine (Nicotine 14mg/24hr Patch) 1 patch TRANSDERM DAILY [facility] Last Admin: 01/08/20 09:27 Dose: 1 patch Documented by: Pantoprazole Sodium (Pantoprazole 40 Mg Tablet) 40 mg PO DAILY@06 [facility] Last Admin: 01/08/20 06:11 Dose: 40 mg Documented by: Sodium Chloride (Sodium Chloride 0.9% Flush 10 Ml Syringe) 10 ml IV BID [facility] Last Admin: 01/08/20 09:28 Dose: 10 ml Documented by: Spironolactone (Spironolactone 25 Mg Tab) 25 mg PO DAILY [facility] Objective - Vital Signs Vital signs: Vital Signs Temp 97.7 F 01/08/20 11:00 Pulse 69 01/08/20 11:00 Resp 18 01/08/20 11:00 BP 126/58 01/08/20 11:00 Pulse Ox 99 01/08/20 11:00 Intake & Output 01/07/20 01/08/20 01/08/20 18:59 06:59 18:59 Intake Total 552 480 420 Output Total 600 1100 Balance -48 -620 420 Weight 63.5 kg Intake: Oral 552 480 420 Output: Urine 600 1100 Other: Voiding Method Bedpan Bedpan # Voids 1 - Exam PHYSICAL EXAMINATION: GENERAL: The patient is alert and oriented x3, not in any acute distress. Well developed, well nourished. HEENT: Pupils are round and equally reacting to light. EOMI. No scleral icterus. No conjunctival pallor. CARDIOVASCULAR: S1 and S2 present. Tachycardia PULMONARY: Bilateral breath sounds are positive. Decreased crackles. ABDOMEN: Soft, nontender, nondistended, normoactive bowel sounds. No palpable organomegaly. MUSCULOSKELETAL: No joint swelling or deformity. EXTREMITIES: Bilateral AKA . Stumps clean. NEUROLOGICAL: Gross neurological examination did not reveal any focal deficits. SKIN: No rashes. - Labs CBC & Chem 7: 01/07/20 07:04 01/08/20 07:22 Labs: Abnormal Lab Results - Last 24 Hours (Table) 01/08/20 Range/Units 07:22 Sodium 136 L (137-145) mmol/L Chloride 97 L (98-107) mmol/L Carbon Dioxide 33 H (22-30) mmol/L BUN 32 H (7-17) mg/dL Assessment and Plan Assessment: ASSESSMENT Acute hypoxic respiratory failure secondary to CHF exacerbation Acute on chronic congestive heart failure Systolic heart failure with ejection fraction of 20 to 25% Lactic acidosis Hyperkalemia COPD GERD Hypertension Hyperlipidemia Rheumatoid arthritis Severe peripheral vascular disease status post bilateral AKA Chronic low back pain Psoriatic arthritis Breast cancer status post lumpectomy and radiation therapy PLAN: Patient showed significant improvement with IV Lasix, and currently on by mouth Lasix. Patient to be continued on losartan 25mg and metoprolol 12.5 mg p.o. twice daily has been added yesterday. Today she is started on Aldactone 25 mg daily. Continue with the rest of her current medication regimen. Further recommendations to follow depending on the progress of the patient.
[2020-01-08] MEDS: GABAPENTIN 300 MG CAP PO SCH (20:40)
[2020-01-08] MEDS: ATORVASTATIN 40 MG TAB PO SCH (20:40)
[2020-01-08] MEDS: LOSARTAN 25 MG TAB PO SCH (20:40)
[2020-01-08] MEDS: MELATONIN 5 MG TABLET PO PRN (20:40)
[2020-01-09] MEDS: SYMBICORT 80-4.5 MCG INHALER INHALATION SCH ×2 (01:24→07:42)
[2020-01-09] MEDS: PANTOPRAZOLE 40 MG TABLET PO SCH (07:12)
[2020-01-09] MEDS ORDERED: SPIRONOLACTONE 25 MG TAB PO SCH (09:00)
[2020-01-09 09:35] LABS: Basophils % (A) 0 %; Eosinophils # (A) 0.4 k/uL (0-0.7); Eosinophils % (A) 6 %; HCT 36.4 % (34.0-46.0); HGB 11.4 gm/dL (11.4-16.0); Lymphocytes # (A) 1.1 k/uL (1.0-4.8); Lymphocytes % (A) 18 %; MCH 30.9 pg (25.0-35.0); MCHC 31.4 g/dL (31.0-37.0); MCV 98.4 fL (80.0-100.0); Mean Platelet Volume 6.9; Monocytes # (A) 0.3 k/uL (0-1.0); Monocytes % (A) 6 %; Neutrophils # (A) 3.9 k/uL (1.3-7.7); Neutrophils % (A) 68 %; Platelet Count 244 k/uL (150-450); RDW 14.2 % (11.5-15.5); WBC 5.8 k/uL (3.8-10.6)
[2020-01-09 09:50] LABS: Calcium 8.4 mg/dL (8.4-10.2); Potassium 3.6 mmol/L (3.5-5.1)
[2020-01-09] MEDS: FERROUS SULFATE 325 MG TAB PO SCH (09:54)
[2020-01-09] MEDS: METOPROLOL TARTRATE 12.5 MG TAB PO SCH (09:54)
[2020-01-09] MEDS: ESCITALOPRAM 10 MG TAB PO SCH (09:54)
[2020-01-09] MEDS: NICOTINE 14MG/24HR PATCH TRANSDERM SCH (09:55)
[2020-01-09] MEDS: ENOXAPARIN 40 MG/0.4 ML SYRINGE SQ SCH (09:55)
[2020-01-09] MEDS: FUROSEMIDE 80 MG TAB PO SCH ×2 (09:55→15:20)
[2020-01-09] MEDS: ASPIRIN 81 MG PO SCH (09:55)
[2020-01-09] MEDS: CLOPIDOGREL 75 MG TAB PO SCH (09:55)
[2020-01-09 11:29] VITALS: BP 115/56; PULSE 67; TEMP 97.5
--- NOTE | 2020-01-09 11:41 | P.PN ---
Subjective Progress Note Date: 01/09/20 Principal diagnosis: Chronic systolic heart failure This is a pleasant 79-year-old female patient who was admitted to the hospital with acute exacerbation of heart failure secondary to systolic dysfunction as well as possible COVID 19 infection. The patient was seen this morning. She seems to be feeling better indeterminable shortness of breath. On examination the wheezing has improved significantly. As a matter of fact she seems to be euvolemic. From the cardiovascular standpoint of view, the patient possibly can be discharged home. Objective - Vital Signs Vital signs: Vital Signs Temp 97.5 F L 01/09/20 11:03 Pulse 67 01/09/20 11:03 Resp 18 01/09/20 11:03 BP 115/56 01/09/20 11:03 Pulse Ox 100 01/09/20 11:03 Intake & Output 01/08/20 01/09/20 01/09/20 18:59 06:59 18:59 Intake Total 660 240 120 Output Total 900 500 350 Balance -240 -260 -230 Weight 61 kg Intake: Oral 660 240 120 Output: Urine 900 500 350 Other: Voiding Method Bedpan Bedpan Bedpan # Voids 1 1 - Constitutional General appearance: Present: no acute distress - Respiratory Respiratory: bilateral: CTA - Cardiovascular Heart sounds: normal: S1, S2 - Labs CBC & Chem 7: 01/09/20 07:45 01/09/20 07:45 Labs: Abnormal Lab Results - Last 24 Hours (Table) 01/09/20 01/09/20 Range/Units 07:45 07:45 RBC 3.70 L (3.80-5.40) m/uL Sodium 135 L (137-145) mmol/L Chloride 96 L (98-107) mmol/L Carbon Dioxide 34 H (22-30) mmol/L BUN 30 H (7-17) mg/dL Glucose 102 H (74-99) mg/dL Assessment and Plan Assessment: Assessment Assessment #1 acute exacerbation of congestive heart failure secondary to systolic dysfunction which has improved #2 peripheral arterial disease #3 multiple comorbid conditions Plan #1 continue the current medical regimen #2 the patient can be discharged home
--- NOTE | 2020-01-09 13:44 | P.DS ---
Providers Date of admission: 01/06/20 00:14 Attending physician: Jose Fernandez Consults: 01/06/20 00:13 Consult Physician Routine Consulting Provider: Kaz Lilly Consult Reason/Comments: hypertensive emergency. 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 Urena is an 79-year-old female with a past medical history of coronary artery disease, congestive heart failure, COPD, GERD, hypertension, hyperlipidemia, rheumatoid arthritis, severe peripheral vascular disease status post bilateral AKA, past chronic right stump wound, chronic low back pain, psoriatic arthritis, breast cancer with lumpectomy status post radiation therapy sent in from the shelter for the chief complaint of difficulty in breathing. Patient presents because of acute dyspnea. Patient found to have acute systolic CHF, she has low ejection fraction of 20-25%, patient states that every week she has worsening dyspnea however she admits to noncompliance of consuming water and salt. Patient is counseled extensively to restrict her fluid consult intake and she agrees. Also patient has been able with by mechanical assembly technician, she has been treated with diuretics and her breathing is improved. On the day of discharge she is back to her 2 L of oxygen via nasal cannula and she has minimal crepitation. No chest pain or dyspnea or coughing upon discharge. No other complaints, no change in urine or bowel habits. No fever. Patient was cleared for discharge by mechanical assembly technician we are going to increase Lasix and discharged from 60 mg daily to 80 mg twice daily. Please keep monitoring creatinine and electrolytes every 2-3 days Problems and management plan were discussed with the patient and he verbalized understanding and acceptance Patient was found stable and can be discharged home however he needs follow-up as an outpatient. Patient was instructed to follow up with PCP Dr. sampson within one week and patient agrees. Patient also was instructed to follow up with Dr. Hawkins in 1-2 weeks and she agrees Gen: patient is a AAOx3, no distress CVS: S1-S2, RRR, no murmur Lungs: B/L CTA, no wheezing Abdomen: soft, no distention, no tenderness, positive bowel sounds Extremity: no leg edema or induration Time spent more than 35 minutes Patient Condition at Discharge: Serious Plan - Discharge Summary Discharge Rx Participant: Yes New Discharge Prescriptions: New Spironolactone [Aldactone] 25 mg PO DAILY tab Artificial Tears-Hypromellose [Artificial Tear Drops] 1 drops BOTH EYES QID PRN bottle PRN Reason: Dry Eye(S) Furosemide [Lasix] 80 mg PO BID@0900,1600 tab Continue Potassium Chloride ER [K-Dur 20] 20 meq PO DAILY@0800 Omeprazole [PriLOSEC] 20 mg PO DAILY@0600 Ipratropium-Albuterol Nebulize [Duoneb 0.5 mg-3 mg/3 ml Soln] 3 ml INHALATION RT-QID Ferrous Sulfate [Iron (65 MG Elemental)] 325 mg PO DAILY@0800 Escitalopram Oxalate [Lexapro] 10 mg PO DAILY@0800 Clopidogrel Bisulfate [Plavix] 75 mg PO DAILY@0800 Atorvastatin [Lipitor] 40 mg PO HS@2000 Aspirin EC [Ecotrin Low Dose] 81 mg PO DAILY@0800 Fluticasone/Salmeterol [Advair 250-50 Diskus] 1 puff INHALATION RT- BID@0800,2000 Melatonin 5 mg PO HS PRN PRN Reason: Insomnia Docusate [Colace] 100 mg PO DAILY PRN PRN Reason: Constipation Nitroglycerin Sl Tabs [Nitrostat] 0.4 mg SUBLINGUAL Q5M PRN #25 tab PRN Reason: Chest Pain Furosemide [Lasix] 40 mg PO DAILY@1400 Gabapentin 600 mg PO HS@2000 Losartan [Cozaar] 25 mg PO HS@1999 Metoprolol Tartrate [Lopressor] 12.5 mg PO BID@0800,1999 Changed Hydrocodone/Acetaminophen [[place] 5-325] 1 tab PO DAILY PRN 2 Days #2 tab PRN Reason: Pain Discontinued Furosemide [Lasix] 60 mg PO DAILY@0600 Discharge Medication List Aspirin EC [Ecotrin Low Dose] 81 mg PO DAILY@0800 12/02/18 [History] Atorvastatin [Lipitor] 40 mg PO HS@199912/02/18 [History] Clopidogrel Bisulfate [Plavix] 75 mg PO DAILY@0800 12/02/18 [History] Escitalopram Oxalate [Lexapro] 10 mg PO DAILY@0800 12/02/18 [History] Ferrous Sulfate [Iron (65 MG Elemental)] 325 mg PO DAILY@0800 12/02/18 [History] Fluticasone/Salmeterol [Advair 250-50 Diskus] 1 puff INHALATION RT-BID@799,199912/02/18 [History] Ipratropium-Albuterol Nebulize [Duoneb 0.5 mg-3 mg/3 ml Soln] 3 ml INHALATION RT-QID 12/02/18 [History] Omeprazole [PriLOSEC] 20 mg PO DAILY@0600 12/02/18 [History] Potassium Chloride ER [K-Dur 20] 20 meq PO DAILY@0800 12/02/18 [History] Docusate [Colace] 100 mg PO DAILY PRN 12/22/19 [History] Melatonin 5 mg PO HS PRN 12/22/19 [History] Nitroglycerin Sl Tabs [Nitrostat] 0.4 mg SUBLINGUAL Q5M PRN #25 tab 12/23/19 [Rx] Furosemide [Lasix] 40 mg PO DAILY@1400 01/05/20 [History] Gabapentin 600 mg PO HS@199901/05/20 [History] Losartan [Cozaar] 25 mg PO HS@199901/05/20 [History] Metoprolol Tartrate [Lopressor] 12.5 mg PO BID@08,199901/05/20 [History] Artificial Tears-Hypromellose [Artificial Tear Drops] 1 drops BOTH EYES QID PRN bottle 01/09/20 [Rx] Furosemide [Lasix] 80 mg PO BID@0900,1600 tab 01/09/20 [Rx] Hydrocodone/Acetaminophen [[place] 5-325] 1 tab PO DAILY PRN 2 Days #2 tab 01/09/20 [Rx] Spironolactone [Aldactone] 25 mg PO DAILY tab 01/09/20 [Rx] Follow up Appointment(s)/Referral(s): Oziel Hawkins MD [STAFF PHYSICIAN] - 1 Week Noble De León MD [Primary Care Provider] - 1-2 days Activity/Diet/Wound Care/Special Instructions: Heart healthy diet We recommend salt restriction to 2 mg per day and fluid restriction to 1.5 L per day Activity as tolerated Discharge Disposition: TRANSFER TO SNF/ECF
== END 2020-01-09 16:45 | DRG 291 ==
LOC: EC 23:04 → 3SCARD 01-06 00:14
PROVIDERS: ADMIT Internal Medicine; ATTEND Internal Medicine
PROC: 5A09357 Assistance with Respiratory Ventilation, Less than 24 Consecutive Hours, Continuous Positive Airway Pressure (ICD-10-PCS; principal; 2020-01-05)
PROC: 3E0234Z Introduction of Serum, Toxoid and Vaccine into Muscle, Percutaneous Approach (ICD-10-PCS; 2020-01-09)
DX: I11.0 Hypertensive heart disease with heart failure (principal); J96.21 Acute and chronic respiratory failure with hypoxia; E87.2 Acidosis; I16.1 Hypertensive emergency; I50.23 Acute on chronic systolic (congestive) heart failure; L40.50 Arthropathic psoriasis, unspecified; I73.9 Peripheral vascular disease, unspecified; Z89.611 Acquired absence of right leg above knee; Z89.612 Acquired absence of left leg above knee; Z89.511 Acquired absence of right leg below knee; J44.9 Chronic obstructive pulmonary disease, unspecified; M06.9 Rheumatoid arthritis, unspecified; Z20.828 Contact with and (suspected) exposure to other viral communicable diseases; E78.5 Hyperlipidemia, unspecified; E87.5 Hyperkalemia; F17.200 Nicotine dependence, unspecified, uncomplicated; F32.9 Major depressive disorder, single episode, unspecified; F41.9 Anxiety disorder, unspecified; G47.00 Insomnia, unspecified; I25.10 Atherosclerotic heart disease of native coronary artery without angina pectoris; I08.1 Rheumatic disorders of both mitral and tricuspid valves; I44.7 Left bundle-branch block, unspecified; K21.9 Gastro-esophageal reflux disease without esophagitis; Z99.81 Dependence on supplemental oxygen; G62.9 Polyneuropathy, unspecified; G89.29 Other chronic pain; K44.9 Diaphragmatic hernia without obstruction or gangrene; M19.90 Unspecified osteoarthritis, unspecified site; M54.5 Low back pain; R11.0 Nausea; R00.0 Tachycardia, unspecified; I65.21 Occlusion and stenosis of right carotid artery; Z79.02 Long term (current) use of antithrombotics/antiplatelets; Z79.82 Long term (current) use of aspirin; Z79.899 Other long term (current) drug therapy; Z96.1 Presence of intraocular lens; Z98.42 Cataract extraction status, left eye; Z98.41 Cataract extraction status, right eye; Z85.3 Personal history of malignant neoplasm of breast; Z86.73 Personal history of transient ischemic attack (TIA), and cerebral infarction without residual deficits; Z87.11 Personal history of peptic ulcer disease; Z90.710 Acquired absence of both cervix and uterus; Z91.19 Patient's noncompliance with other medical treatment and regimen; Z92.3 Personal history of irradiation; Z87.440 Personal history of urinary (tract) infections; Z87.898 Personal history of other specified conditions; Z88.1 Allergy status to other antibiotic agents; Z91.041 Radiographic dye allergy status; Z88.5 Allergy status to narcotic agent; Z88.2 Allergy status to sulfonamides; Z88.8 Allergy status to other drugs, medicaments and biological substances; Z91.048 Other nonmedicinal substance allergy status; Z87.01 Personal history of pneumonia (recurrent); Z98.890 Other specified postprocedural states; Z90.89 Acquired absence of other organs; Z82.0 Family history of epilepsy and other diseases of the nervous system; Z83.3 Family history of diabetes mellitus; Z82.61 Family history of arthritis; Z82.3 Family history of stroke; Z23 Encounter for immunization
CPT/HCPCS: 36415; 71045; 80048; 80053; 81003; 83605; 83735; 83880; 84484; 85025; 85610; 85730; 87635; 90732; 93005; 94640; 94660; 96374; 99291